=== PATIENT | male | born 1950 | race Caucasian/White ===

== ENCOUNTER 2023-09-02 22:16 | Inpatient (IN) | payer MEDICARE, OTHER, SELFPAY ==
[2023-09-02] VITALS (8 sets, daily range): BP systolic 116–141; BP diastolic 64–76; BMI 33.8; BMI 33.3
[2023-09-02 19:02] LABS: % Basophils 0.7 % (0-2); % Eosinophils 4.4 % (0-6); % Immature Granulocytes 0.3 % (0-0.5); % Lymphocytes 19.7 % (20.5-51.1); % Monocytes 6.7 % (1.7-9.3); % Neutrophils 68.2 % (42.2-75.2); Absolute Eosinophils 0.3 10^3/uL (0-0.7); Absolute Lymphocytes 1.2 10^3/uL (1.2-3.4); Absolute Monocytes 0.4 10^3/uL (0.1-0.6); Absolute Neutrophils 4.1 10^3/uL (1.4-6.5); Hematocrit 23.2 % (39.0-52.0); Hemoglobin 7.5 g/dL (13.0-18.0); Mean Corp Hgb Conc. 32.3 g/dL (33.0-37.0); Mean Corpuscular Volume 80.3 fL (80.0-94.0); Mean Platelet Volume 10.5 fL (7.4-10.4); Nucleated Red Blood Cells % 0 % (-); Platelet Count 216 10^3/uL (130-400); Red Blood Cell Count 2.89 10^6/uL (4.70-6.10); White Blood Cell Count 5.9 10^3/uL (4.8-10.8)
[2023-09-02 19:21] LABS: ALT (SGPT) 11 U/L (0-50); AST (SGOT) 16 U/L (17-59); Alkaline Phosphatase 86 U/L (38-126); Blood Urea Nitrogen 16 mg/dl (9-20); Calcium 8.5 mg/dl (8.4-10.2); Carbon Dioxide 22 mmol/L (22-30); Chloride 107 mmol/L (98-107); Estimated Creatinine Clearance 99 ml/min; Glucose 146 mg/dl (70-99); Potassium 3.7 mmol/L (3.5-5.1); Sodium 137 mmol/L (135-145); Total Bilirubin 0.5 mg/dl (0.2-1.3); Total Protein 5.4 g/dl (6.3-8.2); eGFR > 60.00
--- NOTE | 2023-09-02 21:15 | ED.GENMED ---
History of Present Illness
General
Chief Complaint: Skin Surface Trauma
Source: patient, family and ambulance crew
Exam Limitations: none
Time Seen by Provider: 09/02/23 18:58
Nursing documentation reviewed up to this point in time: agreed with
Travel History
Have you had any contact with someone who has COVID-19?: No
Do you have any symptoms of coronavirus? Fever > 100 degrees, chills, cough, shortness of breath, sore throat, loss of taste or smell, muscle aches, or headache?: No
History of Present Illness
History of Present Illness:
Patient is a 72-year-old male with a history of A-fib on Eliquis, CHF on Lasix, hypertension, diabetes, presents after accidentally lacerating his left anterior lower extremity on a piece of sheet metal in his garage. Patient says he did not
realize that he had as deep of the wound as he did and that it was bleeding as much as he was. There was blood apparently all over the floor garage. He came into the house about a half an hour later and sat down and had a near send nearly blacked
out. His thinks maybe he briefly lost consciousness all the way but she was not sure. She said his eyes rolled in the back of his head and he was not really responding.
He came to per paramedics. The bleeding has since resolved. His last tetanus is up-to-date. He feels a little sleepy but otherwise normal.
Past History
Past History
ED Past Medical History: Arrthythmia, HTN and NIDDM
ED Past Surgical History: Orthopedic
Social History
Tobacco: Non-smoker
Alcohol: None
Review of Systems
Review of Systems
Allergies reviewed?: Yes
All Other Systems: Not applicable
Phy Exam
Physical Exam
Physical Exam:
GENERAL: Alert , in no apparent distress
HEAD: NCAT
NECK: no midline tenderness, active ROM intact, no paraspinal muscle tenderness;
EYE: pupils equal and reactive, EOMs intact. pale conjunctiva
ENT: o/p clr, mmm. no hemotympanum
CARDIAC: afib rate controlled, mild edema b/l LE;
LUNGS: Clear breath sounds bilaterally, no acute respiratory distress, no wheezes/rales/rhonchi
ABDOMEN: Soft, without focal tenderness, no r/g, no cvat
HEME POS stool
NEUROLOGICAL: Alert and oriented, no focal neuro deficits, CN intact, 5/5 strength, sensation intact
SKIN: Warm and dry,
pt has a 3 cm linear laceration left anterior lower leg no active bleeding
MUSCULOSKELETAL: No edema, well perfused.
nontender, full rom
PSYCH: Normal and appropriate interaction.
Course
Orders/Labs/Results
Orders:
Orders
09/02/23 Lunch
Cholesterol Lowering
At Your Request: Full Participation
Cholesterol Lowering: Sodium, 2 Gram
09/02/23 18:55
Complete Blood Count/With Diff Urgent
Comprehensive Metabolic Panel Urgent
Ferritin Urgent
Comment: ADD ON
Iron Urgent
Total Iron Binding Urgent
09/02/23 20:02
Electrocardiogram (*1) Urgent
Reason for Study: Vertigo / Dizzy
09/02/23 20:03
EKG- Treatment ONCE
09/02/23 21:12
Blood Bank Products [* Blood Bank Products] Urgent
Blood Bank Products: *Packed RBC Leuko(PRBC's)
Quantity: 1
Transfuse Today: Yes
Reason: Anemia
Type And Crossmatch Urgent
09/02/23 21:13
Add On- LAB Urgent
Tests Added?: iron, tibc, ferritin
09/02/23 21:23
Pantoprazole [Protonix IV] 40 mg IV NOW STA
09/02/23 21:52
Admit/Transfer Patient As Directed
Co-Sign Provider:
Level of Care: Inpatient admission
Assign to:: Telemetry
Physician / Group: Rupa Elizabeth - hospitalists
Diagnosis: Acute blood loss anemia, heme+ stools, LE laceration
Reason for Telemetry: Arrhythmia
Date to Stop Telemetry: 09/05/23
Time to Stop Telemetry: 11:00
Reason for Hospitalization: Acute blood loss anemia, heme+ stools, LE laceration
Expected length of stay greater than two midnights?: Yes
ELOS- Estimated Length of Stay in days: 2
I certify the patient meets the requirements for IP care: Yes
09/02/23 21:53
Code Status As Directed
Resuscitation Status: Full Code
09/02/23 22:38
Acetaminophen [Tylenol] 650 mg PO Q4HPRN PRN
Atorvastatin [Lipitor] 40 mg PO HS
Bisacodyl [Dulcolax] 10 mg RECTAL [id number] PRN
Dextrose 50%-Water [Dextrose 50% Syringe] 12.5 grams IV [id number] PRN
Docusate W/Senna [Senokot-S] 1 tablet PO BIDPRN PRN
Glucagon [GlucaGen] 1 mg IM PRN PRN
Metformin Extended Release [Glucophage Xr Extended Release] 1,000 mg PO BID AT 0800,1700
Ondansetron Injectable [Zofran] 4 mg IV Q6HPRN PRN
Polyethylene Glycol Powder [Miralax] 17 grams PO DAILYPRN PRN
Tamsulosin [Flomax] 0.8 mg PO HS
09/02/23 22:38
Echo 2D MMode Color/Doppler Routine
Reason for Study: syncopal event
WOUND/OSTOMY CONSULT Routine
Reason for Consult: LLE Laceration, wound care
Activity As Directed
Activity Level: As Tolerated
Bedside Glucose Monitoring As Directed
Frequency: AC&HS
Additional Instructions:: Change to q6h if pt on TPN, tube feeding or not eating
Intake/ Output As Directed
Frequency: q12h
Orthostatic Vital Signs As Directed
Orthostatic VS Frequency: Daily
Pneumatic Compression Sleeves As Directed
Type: Knee high
Vital Signs As Directed
Frequency: Per unit guidelines
Weight As Directed
Frequency: Daily
DX Deep Vein Thrombosis Video Routine
09/02/23 22:45
Nebivolol HCl [Bystolic] 10 mg PO HS
09/03/23 06:00
Basic Metabolic Panel IN AM
Complete Blood Count/No Diff IN AM
Folate IN AM
Glycohemoglobin (HgbA1c) IN AM
Vitamin B12 IN AM
OT Consult [Ot Eval And Treat] IN AM
Physical Therapy Consult [Pt Eval And Treat] IN AM
Activity Level: As Tolerated
09/03/23 07:30
Insulin Aspart Corrective Low [Novolog Flexpen-Low Resistance] See Protocol SC AC
09/03/23 08:00
Pantoprazole [Protonix IV] 40 mg IV DAILY
09/03/23 18:00
Losartan [Cozaar] 100 mg PO QPM
09/05/23 11:00
DC Protocol for Telemetry ONCE
Abnormal Lab Results
09/02/23
18:55
RBC 2.89 L 10^6/uL
(4.70-6.10)
Hgb 7.5 L g/dL
(13.0-18.0)
Hct 23.2 L %
(39.0-52.0)
MCH 26.0 L pg
(27.0-31.0)
MCHC 32.3 L g/dL
(33.0-37.0)
RDW 15.0 H %
(11.5-14.5)
MPV 10.5 H fL
(7.4-10.4)
Lymphocytes % 19.7 L %
(20.5-51.1)
Glucose 146 H mg/dl
(70-99)
Iron 29 L ug/dl
(49-181)
% Saturation 11 L %
(20-50)
Ferritin 17.6 L ng/ml
(17.9-464.0)
AST 16 L U/L
(17-59)
Total Protein 5.4 L g/dl
(6.3-8.2)
Albumin 3.0 L g/dl
(3.5-5.0)
09/02/23 18:55
09/02/23 18:55
Vital Signs
Initial and Last Documented VS:
Initial Vital Signs
Temp Pulse Resp BP Pulse Ox
98.3 F 66 22 119/65 93
09/02/23 18:41 09/02/23 18:41 09/02/23 18:41 09/02/23 18:41 09/02/23 18:41
Last Documented Vital Signs
Temp Pulse Resp BP Pulse Ox
99.0 F 79 16 116/75 100
09/02/23 23:00 09/02/23 23:55 09/02/23 23:00 09/02/23 23:55 09/02/23 23:00
MDM/Problems Addressed
Differential Diagnosis Includes:
symptomatic anemia, laceration, gi bleed
MDM/Problems Addressed:
72 y/o M with laceration lower leg today ccausing what looked to be to family like significant blood loss, followed by witnessed syncope
no h/o anemima
had labs here years agow ith hg of 11
pt is normotensive, pale, seems weak
bleeidng from laceration conrolled
repaired with sutures and dressed
hg is 7.5
heme pos stool
pt seems too weak to d/c
will admit
transufion consent signed.
*Critical Care Note
Total Time (30-74mins, 75-104mins- exclusive of procedures): Not Applicable
ED Attending Note
-
Portions of this chart may have been created with voice recognition software.� Occasional wrong word or��sound alike� substitutions may have occurred due to the inherent limitations of voice recognition software.
Discharge Plan
Departure
Patient Disposition: Admit
Date of Disposition: 09/02/23
Time of Disposition: 21:24
Admit to: Telemetry
Presentation/result/management discussed w/ accepting MD/DO: Hospitalist
Condition: Fair
Covid-19: Not Applicable
Discharge Problem:
Syncope, Symptomatic anemia, Laceration of leg
Interventions
Interventions:
*Risk Screen - Suicide Last Done: 09/02/23 23:10
*General Assessment Last Done: 09/02/23 18:58
*Neglect/Abuse Screening Last Done: 09/02/23 18:58
ED- Fall Risk Assessment Last Done: 09/02/23 18:58
*ED COVID-19 Vaccine History Last Done: 09/02/23 23:10
*Nursing Disposition Last Done: 09/02/23 22:40
ED-Skin Assessment Last Done: 09/02/23 18:57
Discharge Date and Time
Discharge Date/Time: 09/02/23 22:40
--- NOTE | 2023-09-02 21:34 | HPS.HSE ---
Family Physician
-
Family Physician: Ayesha Henning MD
Chief Complaint
-
skin trauma
History of Present Illness
72 y/o M hx of Afib on Eliquis, CHF on Lasix, HTN, DM presents to ER with accidental laceration of L anterior LE on a piece of sheet metal in garage. Patient/family reports the bleeding was significant and were not aware of the degree of depth of
the wound. Later in the house, he sat down and nearly passed out; he was briefly not responding. Patient denies any chest pain, sob, palpitations prior to episode. He was noted to have Hb of 7.5 on admission, previously Hb 13. In ER, weakly heme
positive. Patient denies any dark stools, blood on toilet paper. Reports prior C-scope without significant abnormalities. He is on Eliquis.
Medical History
Past Medical History
Past Medical History: Reports Other (Afib on Eliquis, CHF on Lasix, HTN, DM)
Past Surgical History: Reports Orthopedic
Social History
Tobacco: Non-smoker
Alcohol: None
Personal:
Living: With Family
Family History
Family History: Not pertinent
Allergies / Home Medications
Allergies reflects when Allergies were last updated in [facility].
Home Medications with original date entered in [facility]
Allergy/Medication List:
Allergies
Allergy/AdvReac Type Severity Reaction Status Date / Time
No Known Allergies Allergy Verified 05/07/23 18:36
Home Medications
apixaban 5 mg tablet (Eliquis) 5 mg PO BID #180 tabs 09/26/21
folic acid 1 mg tablet 1 mg PO DAILY #90 tabs 09/26/21
tamsulosin 0.4 mg capsule 0.8 mg (2 x 0.4 mg) PO HS #180 caps 09/26/21
atorvastatin 40 mg tablet 40 mg PO HS 09/02/23
furosemide 20 mg tablet 20 mg PO DAILY PRN swelling 09/02/23
metformin 500 mg tablet,extended release 24 hr 1,000 mg PO BID 09/02/23
multivitamin 1 tab PO DAILY 09/02/23
nebivolol 10 mg tablet 10 mg PO HS 09/02/23
telmisartan 80 mg tablet 80 mg PO QPM 09/02/23
Review of Systems
-
A 12 point ROS was completed and negative except as noted: Yes
Physical Exam
Vital Signs
Vital Signs
Temp Pulse Resp BP Pulse Ox
98.3 F 73 12 130/68 95
09/02/23 18:41 09/02/23 19:45 09/02/23 19:45 09/02/23 19:00 09/02/23 19:45
Physical Exam
General: Well Developed and Well Nourished
HEENT: NormoCephalic and Anicteric
Respiratory: No Wheezes or Rales
Cardiac: S1/S2 and Regular Rhythm
Musculoskeletal: Edema, Left Lower Extremity and Edema, Right Lower Extremity
Neuro: AO x 3
Psych: Calm
Laboratory Results
-
09/02/23 18:55
09/02/23 18:55
Laboratory Results
Total Bilirubin 0.5 mg/dl (0.2-1.3) 09/02/23 18:55
AST 16 U/L (17-59) L 09/02/23 18:55
ALT 11 U/L (0-50) 09/02/23 18:55
Alkaline Phosphatase 86 U/L (38-126) 09/02/23 18:55
Data Reviewed
-
Lab Data: Labs Reviewed by me
Impression/Plan
-
Assessment:
Acute blood loss anemia from L LE laceration (traumatic)
Heme+ stools on exam per ER
Syncopal event post-bleeding
A. fib on Eliquis
chronic HFpEF (on Lasix prn)
Essential HTN
Type 2 DM
HLD
Plan:
Monitor on tele; syncope workup. check orthostatics. check Echo.
Hold Eliquis
1 unit PRBC; repeat AM Hb.
check anemia workup
if iron deficiency, consider GI input. PPI daily for now.
consult wound care. Per ER sign out; plan is for 'sutures out in 10 days; change dressing once or twice a day and clean and redress with bacitracin'
DVT: SCDs
Code: Full
[2023-09-02] MEDS: PROTONIX IV 40 MG IV (21:55)
[2023-09-02 21:58] LABS: Iron 29 ug/dl (49-181)
[2023-09-02 22:07] LABS: Percent Saturation 11 % (20-50); Total Iron Binding Capacity 263 ug/dl (261-462)
--- NOTE | 2023-09-02 23:10 | TRANSFER ---
Pt admitted from ED to room 434-2. Pt pulled over from stretcher to bed. AAOx3. VSS. Pt was oriented to the room, call lamb placed within reach.
[2023-09-02 23:42] LABS: Ferritin 17.6 ng/ml (17.9-464.0)
[2023-09-02] MEDS: FLOMAX 0.800000000000000044 MG PO (23:54)
[2023-09-02] MEDS: BYSTOLIC 10 MG PO (23:55)
[2023-09-02] MEDS: GLUCOPHAGE XR EXTENDED RELEASE 1000 MG PO (23:56)
[2023-09-03] VITALS (10 sets, daily range): BP systolic 108–148; BP diastolic 55–73; PULSE 63; O2SAT 98
[2023-09-03 00:02] LABS: Glucose - Point of Care 230 mg/dl (70-99)
[2023-09-03] MEDS: LIPITOR 40 MG PO ×2 (00:06→21:29)
[2023-09-03 07:23] LABS: Glucose - Point of Care 138 mg/dl (70-99)
[2023-09-03] MEDS: GLUCOPHAGE XR EXTENDED RELEASE 1000 MG PO ×2 (07:50→17:51)
[2023-09-03] MEDS: PROTONIX IV 40 MG IV (07:51)
[2023-09-03] MEDS: NSS (PRESERVATIVE FREE) 10 ML IV (07:51)
--- NOTE | 2023-09-03 10:00 | WOUNDNOTE ---
WENDY RN NOTE: Patient admitted with Syncope and L leg laceration from sheet metal. See computer for complete PMH. Reviewed ER note and Dr. Colon's note. Removed dressing carefully due to large amt of dried blood on dressing. Approximately 2'
width laterally, closed laceration with black stitches. Adaptic and silicone foam applied, no further bleeding noted. Leg with 2+ edema, patient said he has chronic edema in both legs. and daughter at bedside and confirmed edema in legs, does
not use any type of compression. + palpable pedal pulses, able to lift legs on own, heels intact. Jacques wrap applied knee high, tolerated without pain. Will order bacitracin to start tomorrow per Dr. Colon's note with local wound care. Will
confirm and update wound care orders. Nurse Helen aware of the above. Will follow as needed.
--- NOTE | 2023-09-03 10:05 | WOUNDNOTE ---
WENDY RN NOTE: Patient admitted with Syncope and L leg laceration from sheet metal. See computer for complete PMH. Reviewed Dr. Colon's note, bacitracin and dry dressing recommended by ER . Removed dressing carefully due to large amt of dried
blood on dressing. Approximately 2 cm. width laterally, closed laceration with black stitches. Adaptic and silicone foam applied, no further bleeding noted. Leg with 2+ edema, patient said he has chronic edema in both legs. and daughter at
bedside and confirmed edema in legs, does not use any type of compression. + palpable pedal pulses, able to lift legs on own, heels intact. Jacques wrap applied knee high, tolerated without pain. Will order bacitracin to start tomorrow with local wound
care and jacques wrap. Will confirm and update wound care orders. Nurse Helen aware of the above. Will follow as needed.
--- NOTE | 2023-09-03 11:07 | W.PN.HOSP.TC ---
Addendum entered and electronically signed by Ho Colon MD 09/04/23 15:23:
Acute blood loss anemia was enhanced by usage of Eliquis in combination with acute laceration of leg
Original Note:
Today's Communication/Plan
-
Await pending repeat H&H after blood transfusion may need additional unit
Started on iron supplementation
Continue to hold Eliquis for now until discharge plan and evaluation by gastroenterology
Assessment / Plan
Assessment / Plan
72 y/o M hx of Afib on Eliquis, CHF on Lasix, HTN, DM presents to ER with accidental laceration of L anterior LE on a piece of sheet metal in garage. Patient/family reports the bleeding was significant and were not aware of the degree of depth of
the wound. Later in the house, he sat down and nearly passed out; he was briefly not responding. Patient denies any chest pain, sob, palpitations prior to episode. He was noted to have Hb of 7.5 on admission, previously Hb 13. In ER, weakly heme
positive. Patient denies any dark stools, blood on toilet paper. Reports prior C-scope without significant abnormalities. He is on Eliquis.
After admission patient was found to have a stool for occult blood positive and also iron deficiency. Most recent colonoscopy may have been as much as 5 years ago.
Acute blood loss anemia from L LE laceration (traumatic)
Heme+ stools on exam per ER
Syncopal event post-bleeding
A. fib on Eliquis
chronic HFpEF (on Lasix prn)
Essential HTN
Type 2 DM
HLD
Iron deficiency anemia in male
Plan:
Monitor on tele; syncope workup. check orthostatics. check Echo.
Hold Eliquis
1 unit PRBC; repeat AM Hb. Still pending
check anemia workup notes iron deficiency
Will get gastroenterology input given question of possible GI bleed as not the only source of his anemia presentation
consult wound care. Per ER sign out; plan is for 'sutures out in 10 days; change dressing once or twice a day and clean and redress with bacitracin'
DVT: SCDs
Code: Full
Anticipated Discharge: Within 24 hours
Subjective/Interval History
-
Date of Service: September 03, 2023
Feels okay and no further dizziness faintness no chest pain no shortness of breath with ambulating hallway received 1 unit of packed red blood cells overnight.
Objective Data
-
Labs:
Laboratory Results
09/03/23
06:00
WBC Pending
Hgb Pending
Hct Pending
Plt Count Pending
Sodium Pending
Potassium Pending
Chloride Pending
Carbon Dioxide Pending
BUN Pending
Creatinine Pending
Glucose Pending
Calcium Pending
Vital Signs:
Vital Signs
Temp Pulse Resp BP Pulse Ox
98.3 F 68 16 127/69 96
09/03/23 07:58 09/03/23 07:58 09/03/23 07:58 09/03/23 07:58 09/03/23 07:58
I&O
09/02/23 09/03/23 09/04/23
06:59 06:59 06:59
Intake Total 250 / 250
Balance 250 / 250
Review of Systems
-
History Source: Patient and Family (Family at bedside and updated)
Constitutional: Reports No Symptoms
Respiratory: Reports No Symptoms
Cardiac: Reports No Symptoms
Abdomen/GI: Reports No Symptoms
Skin: Reports Sores
Physical Exam
-
General: Well Developed
HEENT: Normocephalic
Cardiac: Irregular Rhythm
GI: Soft and Nontender
Skin: Lesions (Left pretibial laceration that is now sutured with 3 sutures/Jacques wrap)
Neuro: Awake
Psych: Calm
Data Reviewed
-
Total Time Spent with Patient (in minutes): 56
Labs: Labs Reviewed by me (Repeat hemoglobin still pending on entrance 7.5/iron deficiency noted/stool for occult blood positive)
[2023-09-03 12:07] LABS: Hemoglobin 7.9 g/dL (13.0-18.0)
[2023-09-03] MEDS: FERRLECIT 110 MG IV (12:13)
[2023-09-03 12:14] LABS: Glucose - Point of Care 125 mg/dl (70-99)
--- NOTE | 2023-09-03 13:01 | CON.GI ---
Addendum entered and electronically signed by BENNIE Ybarra 09/03/23 15:06:
hbg from PCP office 02/2023 14 with MCV 91
Addendum entered and electronically signed by Stephanie Maldonado DO 09/03/23 14:21:
Briefly, Skip Fung is a 72-year-old male with past medical history of A-fib on Eliquis, CHF, hypertension, diabetes admitted following an accidental laceration of his left anterior lower extremity, which he injured with a sheet metal and a
garage. He was noted to be severely anemic, labs consistent with iron deficiency. Hemoglobin 7.5, previously 13, stool is brown, heme positive. Last colonoscopy was 5 years ago which she reports was normal. He denies any melena or hematochezia
at home. He does note constipation, moves his bowels approximately once weekly which has been since 2017. He notes a specific change in bowel habits after going to [employer] in 2017, no change in bowel habits since that time. Both patient and
his at bedside states that there was a significant amount of blood loss following the injury, it is difficult to ascertain just how much but it is difficult to believe that such a profound blood loss could have come from this injury to account
for such a low hemoglobin on presentation. He has no signs of active bleeding at this time. If hemoglobin remains stable over the next 24 hours I would recommend outpatient EGD and colonoscopy for further evaluation of iron deficiency anemia. If
there are signs of active GI bleeding or he is transfusion dependent with ongoing drops, would recommend inpatient evaluation. Both patient and his are agreeable to this plan. Will continue to follow.
Original Note:
Consultation
-
Date/Time Consultation Requested: 09/03/23 1130
Date/Time Consultation Performed: 09/03/23 1300
Requesting Provider: Ho Colon MD
Performing Provider: BENNIE Ryan, Edith Coello DO
Reason for Consultation: anemia
Medical History
Chief Complaint / HPI
Chief Complaint: bleeding from leg
History of Present Illness:
Pt is a 72yo with hx afib with prior CVA 2 years ago on chronic Eliquis, CHF with no recent admission and PRN Lasix use, HTN, NIDDM, prior ETOH use with presentation of bleeding after cut noted on metal while working at home. Per patient and family
he reports a large volume blood noted after injury. He walked to kitchen and sat of chair with concern for weakness with passing out and 911 was called. On admission he is noted with hbg 7.5 with MCV 80.3 and significant iron deficiency with iron
29, TIBC 263, 5 sat 11 and ferritin 17.6. In ER he was noted also with heme + stools. Last colonoscopy [address] Mohamud with 3 mm cecal polyp- TA, IH, and prominent IC valve -- with benign inflammation on bx. No prior EGD.
Pt admits with some wt loss of 20 lbs with some eating less and early satiety with per family feeling full quickly. denies dysphagia, GERD, nausea, vomiting, abdominal pain, diarrhea, constipation, blood or black in stools. Prior hbg 09/2021
14.8 with more recent labs at PCP office. No NSAID use.
Past Medical History
Past Medical History: Arrhythmias (afib on eliquis ), CHF (possible in past with PRN Lasix use), CVA, HTN and NIDDM
Social History
Tobacco: Non-Smoker
Alcohol: Chronic Alcoholic (increase amount in past with several beers per day now 1 drink per week)
Drug: None
Personal:
Living: With Family
Employment: Retired
Family History
Family History: Other
Allergies / Home Medications
Allergy/AdvReac Type Severity Reaction Status Date / Time
No Known Allergies Allergy Verified 05/07/23 18:36
�Medication �Instructions �Recorded
apixaban 5 mg tablet (Eliquis) 5 mg PO BID #180 tabs 09/26/21
folic acid 1 mg tablet 1 mg PO DAILY #90 tabs 09/26/21
tamsulosin 0.4 mg capsule 0.8 mg (2 x 0.4 mg) PO HS #180 caps 09/26/21
atorvastatin 40 mg tablet 40 mg PO HS 09/02/23
furosemide 20 mg tablet 20 mg PO DAILY PRN swelling 09/02/23
metformin 500 mg tablet,extended 1,000 mg PO BID 09/02/23
release 24 hr
multivitamin 1 tab PO DAILY 09/02/23
nebivolol 10 mg tablet 10 mg PO HS 09/02/23
telmisartan 80 mg tablet 80 mg PO QPM 09/02/23
Review of Systems
-
History Source: Patient and Family
Constitutional: Reports Weight Loss and Fatigue
EENT: Reports No Symptoms
Respiratory: Reports No Symptoms
Cardiac: Reports No Symptoms
Abdomen/GI: Reports No Symptoms
: Reports No Symptoms
Musculoskeletal: Reports Other (cut prior to admission with bleeding)
Neurological: Reports Dizzy (on admission) and Weakness
Endocrine: Reports No Symptoms
Hematologic/Lymphatic: Reports Bleeding
Vital Signs
Temp Pulse Resp BP Pulse Ox
98 F 78 16 124/64 97
09/03/23 12:51 09/03/23 12:51 09/03/23 12:51 09/03/23 12:51 09/03/23 12:51
Physical Exam
Exam
General: Well Developed and Well Nourished
HEENT: Normocephalic and Anicteric
Respiratory: Clear
Cardiac: Regular Rhythm
GI: Soft, Non Tender, Non Distended and Normal Bowel Sounds
Genito-urinary: No Costovertebral Tender
Musculoskeletal: No Clubbing and No Cyanosis
Skin: Warm and Dry
Neuro: Awake, Alert and AO x 3
Psych: Calm
Results
WBC 5.9 10^3/uL (4.8-10.8) 09/02/23 18:55
Hgb 7.9 g/dL (13.0-18.0) L 09/03/23 11:29
Hct 23.2 % (39.0-52.0) L 09/02/23 18:55
MCV 80.3 fL (80.0-94.0) 09/02/23 18:55
Plt Count 216 10^3/uL (130-400) 09/02/23 18:55
Absolute Neuts (auto) 4.1 10^3/uL (1.4-6.5) 09/02/23 18:55
Sodium 137 mmol/L (135-145) 09/02/23 18:55
Potassium 3.7 mmol/L (3.5-5.1) 09/02/23 18:55
Chloride 107 mmol/L (98-107) 09/02/23 18:55
Carbon Dioxide 22 mmol/L (22-30) 09/02/23 18:55
BUN 16 mg/dl (9-20) 09/02/23 18:55
Creatinine 0.9 mg/dL (0.7-1.3) 09/02/23 18:55
Calcium 8.5 mg/dl (8.4-10.2) 09/02/23 18:55
Total Bilirubin 0.5 mg/dl (0.2-1.3) 09/02/23 18:55
AST 16 U/L (17-59) L 09/02/23 18:55
ALT 11 U/L (0-50) 09/02/23 18:55
Alkaline Phosphatase 86 U/L (38-126) 09/02/23 18:55
Prior GI Procedures:
EGD: none
Colonoscopy: [address] Mohamud with 3 mm cecal polyp- TA, IH, and prominent IC valve -- with benign inflammation on bx. No prior EGD.
Assessment / Plan
-
Pt is a 72yo with hx afib with prior CVA 2 years ago on chronic Eliquis, CHF with no recent admission and PRN Lasix use, HTN, NIDDM, prior ETOH use with presentation of bleeding after cut noted on metal while working at home. Per patient and family
he reports a large volume blood noted after injury. He walked to kitchen and sat of chair with concern for weakness with passing out and 911 was called. On admission he is noted with hbg 7.5 with MCV 80.3 and significant iron deficiency with iron
29, TIBC 263, 5 sat 11 and ferritin 17.6. In ER he was noted also with heme + stools. Last colonoscopy [address] Mohamud with 3 mm cecal polyp- TA, IH, and prominent IC valve -- with benign inflammation on bx. No prior EGD.Pt admits with some
wt loss of 20 lbs with some eating less and early satiety with per family feeling full quickly. No NSAID use.
-iron deficiency anemia
-s/p cut with metal in garage
-heme + stool in ER
-hx colon polyps last colon 2010
-wt loss early satiety
-afib on Eliquis
other medical problems:
-CVA
-HTN
-NIDDM
-CHF
PLAN:
Etiology of anemia related to acute blood loss with cut on Metal prior to admission vs some underlying chronic anemia with iron deficiency with some reported wt loss and early satiety vs other
t/c eventual EGD/colon - IP vs OP will review timing with Dr. Coello consider sooner if significant further drop in hbg
will try to obtain more recent hbg from PCP office (anitha Cotton [phone])
trend hbg
IV iron
s/p 1 units transfused
Eliquis hold last dose 09/01 am-
cont wound care with recent injury
remains on cholesterol lowering diet
-
-
Thank you for consultation and allowing me to participate in the patient's care. Please call the director of corporate communications GI physician during the after hours with any questions or concerns.
[2023-09-03 13:32] LABS: Hematocrit 24.2 % (39.0-52.0); Hemoglobin 7.7 g/dL (13.0-18.0); Mean Corp Hgb Conc. 31.8 g/dL (33.0-37.0); Mean Corpuscular Hgb 26.4 pg (27.0-31.0); Mean Corpuscular Volume 82.9 fL (80.0-94.0); Mean Platelet Volume 11.4 fL (7.4-10.4); Platelet Count 175 10^3/uL (130-400); Red Blood Cell Count 2.92 10^6/uL (4.70-6.10); White Blood Cell Count 5.9 10^3/uL (4.8-10.8)
[2023-09-03 13:59] LABS: Blood Urea Nitrogen 14 mg/dl (9-20); Calcium 8.7 mg/dl (8.4-10.2); Carbon Dioxide 23 mmol/L (22-30); Chloride 107 mmol/L (98-107); Estimated Creatinine Clearance 98 ml/min; Glucose 112 mg/dl (70-99); Sodium 137 mmol/L (135-145); eGFR > 60.00
[2023-09-03 14:28] LABS: Glycohemoglobin (HgbA1c) 5.3 % (4.0-5.6)
[2023-09-03 15:05] LABS: Folate > 20.0 ng/ml (2.76-20); Vitamin B12 277 pg/ml (239-931)
--- NOTE | 2023-09-03 15:28 | CM ---
Case discussed with SANDI Cervantes. Visited with Skip and his who was at bedside to complete CM Assessment.
Pt and report pt being (I) amb and ADLs. does assist with lower body dressing. Home is a 2 story with 14 stairs from ground to 2nd floor.
Pt would like to know if/when the endo/colo are going to be completed during this hospital stay. would like it to be done now since he is off Eliquis currently. He is also asking for his diet to be changed.
Dr. Granda consult is pending; await consult to determine timing of the endo/colo; IP vs. OP to be determined based on Hgb stability which has dropped since transfusion.
CM will continue to follow.
[2023-09-03 17:14] LABS: Glucose - Point of Care 134 mg/dl (70-99)
[2023-09-03] MEDS: COZAAR 100 MG PO (17:51)
[2023-09-03 21:10] LABS: Glucose - Point of Care 130 mg/dl (70-99)
[2023-09-03] MEDS: FLOMAX 0.800000000000000044 MG PO (21:29)
[2023-09-03] MEDS: BYSTOLIC 10 MG PO (21:29)
[2023-09-04 03:00] VITALS: BP 138/66
[2023-09-04 05:29] VITALS: BMI 33.2
[2023-09-04 05:52] LABS: Hemoglobin 7.4 g/dL (13.0-18.0); Mean Corp Hgb Conc. 32.2 g/dL (33.0-37.0); Mean Corpuscular Hgb 26.6 pg (27.0-31.0); Mean Corpuscular Volume 82.7 fL (80.0-94.0); Mean Platelet Volume 11.4 fL (7.4-10.4); Platelet Count 180 10^3/uL (130-400); Red Blood Cell Count 2.78 10^6/uL (4.70-6.10); Red Cell Dist. Width 15.3 % (11.5-14.5)
[2023-09-04 07:30] VITALS: BP 133/63
[2023-09-04 08:02] LABS: Glucose - Point of Care 107 mg/dl (70-99)
[2023-09-04] MEDS: GLUCOPHAGE XR EXTENDED RELEASE 1000 MG PO (08:42)
[2023-09-04] MEDS: POLYSPORIN/DOUBLE ANTIBIOTIC 1 APPLIC TOPICAL (08:42)
[2023-09-04] MEDS: NSS (PRESERVATIVE FREE) 10 ML IV (08:42)
[2023-09-04] MEDS: PROTONIX IV 40 MG IV (08:44)
[2023-09-04 11:00] VITALS: BP 151/84
--- NOTE | 2023-09-04 12:03 | W.DS.TRANS ---
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
-
Discharge Instructions:
Discharge Diagnosis/Procedures Acute blood loss anemia
Occult blood positive stool
Laceration of left pretibial now post suture
Atrial fibrillation Eliquis resumed at discharge
Diet As tolerated
Activity As tolerated
Driving Restrictions As prior to admission
Blood Work CBC in 1 week
Instructions:
Stand-Alone Forms:
Changes to Home Medications: No
Discharge Medications:
DC Medications w/original date entered in [employer]
apixaban 5 mg tablet (Eliquis) 5 mg PO BID #180 tabs 09/26/21
folic acid 1 mg tablet 1 mg PO DAILY #90 tabs 09/26/21
tamsulosin 0.4 mg capsule 0.8 mg (2 x 0.4 mg) PO HS #180 caps 09/26/21
atorvastatin 40 mg tablet 40 mg PO HS 09/02/23
furosemide 20 mg tablet 20 mg PO DAILY PRN swelling 09/02/23
metformin 500 mg tablet,extended release 24 hr 1,000 mg PO BID 09/02/23
multivitamin 1 tab PO DAILY 09/02/23
nebivolol 10 mg tablet 10 mg PO HS 09/02/23
telmisartan 80 mg tablet 80 mg PO QPM 09/02/23
pantoprazole 40 mg tablet,delayed release (Protonix) 40 mg PO DAILY Gastrointestinal issue #30 tabs 09/04/23
Home Medication Changes
pantoprazole 40 mg tablet,delayed release (Protonix) 40 mg PO DAILY Gastrointestinal issue #30 tabs 09/04/23
Pending Results: No
Total time spent discharging patient (in min): 35
--- NOTE | 2023-09-04 12:07 | W.DCSUMMARY ---
Discharge Summary
Discharge Data
Date of Admission: 09/02/23
Date of Discharge: 09/04/23
-
Pending Results: No
Hospital Course
72-year-old male with a history of permanent atrial fibrillation on Eliquis with underlying CHF hypertension and diabetes was admitted to the hospital setting after he lacerated his left leg on a piece of sheet metal while working in his garage he
initially disregarded the injury but developed significant amount of pooling of blood and large volume in the garage floor and was noted by family members to have had significant amount of blood loss and then developed lightheadedness dizziness and
near syncope prompting evaluation in the ED at which time his presentation hemoglobin turned out to be as low as 7.5 from most recent being measured at 13 a stool management at that time noted a brown stool however did nocturnist physician to be heme positive.
He had suturing of the left pretibial laceration in the ED with 3 sutures that will need to be removed in approximately 10 days he was admitted and given a unit of packed red blood cells after informed consent his last colonoscopy was at least 5
years ago if not longer he has denied any blood passage that would suggest either melena or hematochezia at home. Based on the assumption that the significant amount of decrement in his hemoglobin from 13-7 and half was not all related to acute
blood loss from his laceration we consulted the GI service in relation to his occult blood positive stools and also noteworthy is apparent iron deficiency anemia on assessment of iron on presentation. GI impression was that should his H&H and
hemodynamics remained stable they would like to pursue an outpatient course of EGD and colonoscopy and will make arrangements to follow-up with Dr. Stephanie Maldonado on 25 September at 11:30 AM with her [employer]IC to hold the spot thereafter in 2 weeks for an EGD
and colon. Patient will have a follow-up CBC in approximately 1 week I have also reached out to his PCP in this regard. Eliquis at the time of presentation was held and will be restarted at time of discharge. Of note the patient was also noted on
telemetry during hospital stay to have periods of bradycardia although asymptomatic in the 40s he is not on any chronotropic's a 2D echocardiogram was performed noting a 60% EF with diastolic function indeterminant and normal right ventricular size
and function and moderately dilated right atrium and moderate TR with IVC was mildly dilated and a PASP of 58 mmHg improvement in LV function from prior assessment noted
Discharge Plan
-
Patient Disposition: Home (Routine Discharge)
Discharge Diagnosis/Procedures: Acute blood loss anemia
Occult blood positive stool
Laceration of left pretibial now post suture
Atrial fibrillation Eliquis resumed at discharge
Diet: As tolerated
Activity: As tolerated
Driving Restrictions: As prior to admission
Blood Work: CBC in 1 week
Activity Restrictions/Additional Instructions:
Wound Care Instructions
L leg: Can shower and wash with soap and water, bacitracin to sutures, cover with dry dressing daily and prn drainage.
Jacques wrap knee high daily can remove at bedtime
leg elevation when sitting.
Follow up with primary MD for removal of stitches.
Referrals:
Edith Souza CRNP [Specified Professional Personl] - 09/26/23 11:30 am (please call if you cannot make this appt. )
Tenthoff,Ayesha Esquivel MD [Family Provider] - in less than 1 week
(Will need removal of sutures in the left flank in 8 days
Recheck CBC and appointment to assess and follow-up blood loss anemia)
Prescriptions:
New
pantoprazole [Protonix] 40 mg tablet,delayed release (DR/EC)
40 mg PO DAILY Qty: 30 0RF
Continued
multivitamin Tablet
1 tab PO DAILY
telmisartan 80 mg tablet
80 mg PO QPM
furosemide 20 mg Tablet
20 mg PO DAILY PRN (Reason: swelling)
nebivolol 10 mg tablet
10 mg PO HS
atorvastatin 40 MG tablet
40 mg PO HS
metformin 500 MG tablet extended release 24 hr
1,000 mg PO BID
tamsulosin 0.4 MG capsule
0.8 mg PO HS Qty: 180 0RF
folic acid 1 MG tablet
1 mg PO DAILY Qty: 90 0RF
Eliquis 5 MG tablet
5 mg PO BID Qty: 180 0RF
Discharge Orders:
Discharge Patient (As Directed); Ordered 09/04/23
Ordered By: Ho Colon
Discharge Date and Time
Print Language: BHUTANESE
--- NOTE | 2023-09-04 12:12 | W.PN.GI.CBS2 ---
Today's Communication / Plan
-
Okay for discharge, discussed with patient this morning and on phone. Recommend CBC in 1 week. Discharge on PO iron. Office follow-up arranged with GI upon discharge.
Assessment / Plan
-
Pt is a 72yo with hx afib with prior CVA 2 years ago on chronic Eliquis, CHF with no recent admission and PRN Lasix use, HTN, NIDDM, prior ETOH use with presentation of bleeding after cut noted on metal while working at home. Per patient and family
he reports a large volume blood noted after injury. He walked to kitchen and sat of chair with concern for weakness with passing out and 911 was called. On admission he is noted with hbg 7.5 with MCV 80.3 and significant iron deficiency with iron
29, TIBC 263, 5 sat 11 and ferritin 17.6. In ER he was noted also with heme + stools. Last colonoscopy [address] Mohamud with 3 mm cecal polyp- TA, IH, and prominent IC valve -- with benign inflammation on bx. No prior EGD.Pt admits with some
wt loss of 20 lbs with some eating less and early satiety with per family feeling full quickly. No NSAID use.
-iron deficiency anemia
-s/p cut with metal in garage
-heme + stool in ER
-hx colon polyps last colon 2010
-wt loss early satiety
-afib on Eliquis
other medical problems:
-CVA
-HTN
-NIDDM
-CHF
PLAN:
Etiology of anemia related to acute blood loss with cut on Metal prior to admission vs some underlying chronic anemia with iron deficiency with some reported wt loss and early satiety--no signs of active GI bleeding and hemoglobin has remained stable
IV iron --> please d/c with oral iron
s/p 1 units transfused
Okay to resume eliquis
Okay for discharge today from a GI perspective. Outpatient follow-up with GI on 09/25, plans for EGD/Colonoscopy on 10/05
-check CBC in 1 week
Subjective
Subjective
Date of Service: September 04, 2023
Patient seen in follow-up today. Hemoglobin 7.4 from 7.7 yesterday. He received 1 unit PRBC on 09/02. No signs of GI bleeding. He has remained hemodynamically stable. Patient comfortable with discharge with close outpatient follow-up for office visit
and eventual EGD/Colonoscopy.
Objective
Data Reviewed
Laboratory Data:
Laboratory Results
09/04/23 05:14
09/03/23 13:04
Laboratory Results
Total Bilirubin 0.5 mg/dl (0.2-1.3) 09/02/23 18:55
AST 16 U/L (17-59) L 09/02/23 18:55
ALT 11 U/L (0-50) 09/02/23 18:55
Alkaline Phosphatase 86 U/L (38-126) 09/02/23 18:55
Vital Signs and I&O:
Vital Signs
Temp Pulse Resp BP Pulse Ox
97.7 F 74 18 133/63 96
09/04/23 07:30 09/04/23 07:30 09/04/23 07:30 09/04/23 07:30 09/04/23 07:30
I&O
09/03/23 09/04/23 09/05/23
06:59 06:59 06:59
Intake Total 250 / 250 960 / 960
Output Total 300 / 300
Balance 250 / 250 660 / 660
Physical Exam
Physical Exam
GENERAL: In no acute distress, appears comfortable
HEENT: no scleral icterus, mucous membranes moist, OP clear
RESP: Nonlabored respirations, clear to ausculation, b/l
CV: RRR, S1/S2
ABDOMEN: +BS; soft, non-tender and non-distended; no rebound or guarding
EXT: +left lower extremity with shirley bandage round laceration
SKIN: Dry, warm
NEURO: AAOx3
--- NOTE | 2023-09-04 12:55 | CM ---
Skip was discharged home with his and daughter today. He will follow up outpatient for his endoscopy and colonoscopy. Appointment information included in discharge instructions. IMM provided and reviewed verbally with Skip and family.
No other needs identified.
--- NOTE | 2023-09-04 12:57 | W.DS.TRANS ---
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
-
Discharge Instructions:
Discharge Diagnosis/Procedures Acute blood loss anemia
Occult blood positive stool
Laceration of left pretibial now post suture
Atrial fibrillation Eliquis resumed at discharge
Iron deficiency anemia
Diet As tolerated
Activity As tolerated
Driving Restrictions As prior to admission
Blood Work CBC in 1 week
Instructions:
Stand-Alone Forms:
Changes to Home Medications: No
Discharge Medications:
DC Medications w/original date entered in [employer]
apixaban 5 mg tablet (Eliquis) 5 mg PO BID #180 tabs 09/26/21
folic acid 1 mg tablet 1 mg PO DAILY #90 tabs 09/26/21
tamsulosin 0.4 mg capsule 0.8 mg (2 x 0.4 mg) PO HS #180 caps 09/26/21
atorvastatin 40 mg tablet 40 mg PO HS 09/02/23
furosemide 20 mg tablet 20 mg PO DAILY PRN swelling 09/02/23
metformin 500 mg tablet,extended release 24 hr 1,000 mg PO BID 09/02/23
multivitamin 1 tab PO DAILY 09/02/23
nebivolol 10 mg tablet 10 mg PO HS 09/02/23
telmisartan 80 mg tablet 80 mg PO QPM 09/02/23
ferrous gluconate 324 mg (37.5 mg iron) tablet 324 mg PO DAILY Supplement #30 tabs 09/04/23
pantoprazole 40 mg tablet,delayed release (Protonix) 40 mg PO DAILY Gastrointestinal issue #30 tabs 09/04/23
Home Medication Changes
ferrous gluconate 324 mg (37.5 mg iron) tablet 324 mg PO DAILY Supplement #30 tabs 09/04/23
pantoprazole 40 mg tablet,delayed release (Protonix) 40 mg PO DAILY Gastrointestinal issue #30 tabs 09/04/23
Pending Results: No
Total time spent discharging patient (in min): 36
--- NOTE | 2023-09-04 13:12 | PN.CDI ---
CDI
- -
CDI:
Physician Documentation Request
Admit Date: 09/02/23 22:16
Dear Doctor Isaiah,
Patient admitted with acute blood loss anemia.
09/02 PN, 'Acute blood loss anemia....Hold Eliquis....He was noted to have Hb of 7.5 on admission, previously Hb 13.'
Please clarify the likely relationship between these conditions:
Yes, acute blood loss anemia is associated with/ enhanced by Eliquis.
No, acute blood loss anemia is not associated with/ enhanced by Eliquis but it is due to ___. (Please specify)
Unable to determine
Use of terms such as suspected, likely, concern for, or probable (associated with a specific diagnosis that is being evaluated, monitored, or treated as if it exists) are acceptable and can be coded in the inpatient setting, when documented at the
time of discharge.
Thank you,
Ashley TAMEZ,RN,CCDS
CDI Specialist
Available via [place] text
Please use your independent medical judgment in providing your response.
--- NOTE | 2023-09-04 13:19 | PTCARENOTE ---
Pt DC'd to home. Pt given DC instructions and verbalized understanding.
== END 2023-09-04 14:14 | disposition home or self-care (01) | DRG 813 ==
LOC: 4 WEST ACU 22:16
PROVIDERS: ADMITTING PHYSICIAN Internal Medicine; ATTENDING PHYSICIAN Internal Medicine; EMERGENCY PHYSICIAN Student in an Organized Health Care Education/Training Program; FAMILY PHYSICIAN Family Medicine; OTHER PHYSICIAN Internal Medicine
PROC: 30233N1 Transfusion of Nonautologous Red Blood Cells into Peripheral Vein, Percutaneous Approach (ICD-10-PCS; 2023-09-03)
DX: D68.32 Hemorrhagic disorder due to extrinsic circulating anticoagulants (principal); I50.32 Chronic diastolic (congestive) heart failure; D62 Acute posthemorrhagic anemia; I48.21 Permanent atrial fibrillation; E11.9 Type 2 diabetes mellitus without complications; E78.5 Hyperlipidemia, unspecified; D50.9 Iron deficiency anemia, unspecified; I11.0 Hypertensive heart disease with heart failure; S81.822A Laceration with foreign body, left lower leg, initial encounter; W26.8XXA Contact with other sharp object(s), not elsewhere classified, initial encounter; Y93.89 Activity, other specified; Y92.008 Other place in unspecified non-institutional (private) residence as the place of occurrence of the external cause; Z79.01 Long term (current) use of anticoagulants; Z86.73 Personal history of transient ischemic attack (TIA), and cerebral infarction without residual deficits; Z86.010 Personal history of colon polyps
CPT/HCPCS: 80048; 80053; 82607; 82728; 82746; 82962; 83036; 83540; 83550; 85018; 85025; 85027; 86850; 86900; 86901; 86920; 93005; 93306; 97162; 97166; 99285; J2916; P9016

== ENCOUNTER 2023-10-03 21:01 | Inpatient (IN) | payer MEDICARE, OTHER, SELFPAY ==
[2023-10-03] VITALS (11 sets, daily range): BP systolic 98–176; BP diastolic 63–97; PULSE 73–94; BMI 32.5
--- NOTE | 2023-10-03 18:57 | ED.GENMED ---
History of Present Illness
General
Chief Complaint: Abnormal Lab Value
Source: patient and family
Time Seen by Provider: 10/03/23 18:40
Travel History
Have you had any contact with someone who has COVID-19?: No
Do you have any symptoms of coronavirus? Fever > 100 degrees, chills, cough, shortness of breath, sore throat, loss of taste or smell, muscle aches, or headache?: No
History of Present Illness
History of Present Illness:
72-year-old male sent to the emergency room because of an abnormal hemoglobin performed as an outpatient. Patient was recently hospitalized for anemia. At that time the anemia was suspected to be related to a leg laceration. Patient was
hospitalized on September 01. He was also noted to have heme positive brown stool at that time. He received a unit of blood and was seen by GI. Patient was discharged outpatient follow-up. He is scheduled for colonoscopy in the coming days and had
some blood work ordered prior to that procedure. He received a call that his hemoglobin was too low and he should come in for a unit of blood. When asked if the patient has had any recent bleeding they deny any rectal bleeding but he did have some
bleeding from his left nipple. 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 Patient does endorse feeling tired and has a decreased appetite but denies any chest
pain, shortness of breath, abdominal pain. Patient denies any black or bloody stool. He is taking Eliquis.
Past History
Past History
ED Past Medical History: Arrthythmia, HTN and NIDDM
ED Past Surgical History: Orthopedic
Social History
Tobacco: Non-smoker
Alcohol: None
Phy Exam
Physical Exam
Physical Exam:
General: Awake, Alert, Oriented X3. No acute distress.
Vitals: unremarkable
Head: Atraumatic
Eyes: Pupils equal, EOMI
Throat: Airway intact, no exudates
Neck: Trachea midline
Chest: The inferior aspect of the left nipple there is a area of scab/eschar noted. It is covered with a spray on material. No obvious mass.
Lungs: Clear and equal b/l
Heart: Regular rate, no murmurs
Abd: Soft, Nontender, No pulsatile mass
Rectal: Heme positive black stool
Neuro: Nonfocal
Skin: Warm, dry, no rash
Extremities: pulses equal b/l, 2+ edema
Course
Orders/Labs/Results
Orders:
Orders
10/03/23 18:41
EKG [Electrocardiogram (*1)] Urgent
Reason for Study: Bradycardia / Tachycardia
10/03/23 18:42
EKG- Treatment ONCE
10/03/23 18:57
Type+Screen Urgent
CBC/With Diff [Complete Blood Count/With Diff] Urgent
CMP [Comprehensive Metabolic Panel] Urgent
10/03/23 19:27
* Blood Bank Products Urgent
Blood Bank Products: *Packed RBC Leuko(PRBC's)
Quantity: 2
Transfuse Today: Yes
Reason: Anemia
10/03/23 20:10
Pantoprazole [Protonix IV] 80 mg IV NOW STA
10/03/23 20:40
Admit/Transfer Patient As Directed
Co-Sign Provider:
Level of Care: Inpatient admission
Assign to:: Telemetry
Physician / Group: floyd obrien
Diagnosis: GI bleed
Reason for Telemetry: Other
Other Reason for Telemetry: anemia
Date to Stop Telemetry: 10/05/23
Time to Stop Telemetry: 11:00
Reason for Hospitalization: GI bleed
Expected length of stay greater than two midnights?: Yes
ELOS- Estimated Length of Stay in days: 3
I certify the patient meets the requirements for IP care: Yes
10/03/23 20:41
Code Status As Directed
Resuscitation Status: Full Code
10/03/23 20:57
US Breast Left Ltd WDC Routine
Reason for Exam: left breast lump and discharge
10/05/23 11:00
DC Protocol for Telemetry ONCE
Abnormal Lab Results
10/03/23
18:57
RBC 2.79 L 10^6/uL
(4.70-6.10)
Hgb 6.6 L* g/dL
(13.0-18.0)
Hct 22.4 L %
(39.0-52.0)
MCH 23.7 L pg
(27.0-31.0)
MCHC 29.5 L g/dL
(33.0-37.0)
RDW 16.2 H %
(11.5-14.5)
MPV 10.7 H fL
(7.4-10.4)
Absolute Lymphs (auto) 0.8 L 10^3/uL
(1.2-3.4)
Lymphocytes % 15.1 L %
(20.5-51.1)
Eosinophils % 7.1 H %
(0-6)
Total Protein 6.0 L g/dl
(6.3-8.2)
Albumin 3.2 L g/dl
(3.5-5.0)
Crossmatch IS Only See Detail
10/03/23 18:57
10/03/23 18:57
Vital Signs
Initial and Last Documented VS:
Initial Vital Signs
Temp Pulse Resp BP Pulse Ox
99.2 F 64 16 98/75 98
10/03/23 17:57 10/03/23 17:57 10/03/23 17:57 10/03/23 17:57 10/03/23 17:57
Last Documented Vital Signs
Temp Pulse Resp BP Pulse Ox
98.7 F 64 16 153/69 98
10/03/23 21:01 10/03/23 21:01 10/03/23 21:01 10/03/23 21:01 10/03/23 21:01
MDM/Problems Addressed
Differential Diagnosis Includes:
upper gi bleed, lower gi bleed, anemia of chronic disease, breast mass,
MDM/Problems Addressed:
Patient presents due to a low hemoglobin on outpatient testing. Hemoglobin is even lower today at 6.6. Rectal exam performed and he has black stool which is heme positive. Patient is taking iron supplementation which could explain the black stool
but it is strongly heme positive. 2 units of packed red blood cells ordered. Patient told to not take his Eliquis. Discussed presentation with GI. Given his significant drop in hemoglobin and the past 1 to 2 days, had strongly heme positive
stool, his use of Eliquis it seems more appropriate to hospitalize the patient to monitor his response to the blood transfusion, monitor for further or more significant GI bleeding and perform his workup in a more expeditious fashion. Patient also
has a left breast lesion which may be a simple abrasion but I feel should be further evaluated as well
*Pulse Oximetry
Patient hypoxic: no
*Critical Care Note
Total Time (30-74mins, 75-104mins- exclusive of procedures): Not Applicable
ED Attending Note
-
Portions of this chart may have been created with voice recognition software.� Occasional wrong word or��sound alike� substitutions may have occurred due to the inherent limitations of voice recognition software.
Discharge Plan
Departure
Patient Disposition: Admit
Date of Disposition: 10/03/23
Time of Disposition: 20:05
Admit to: Med/Surg
Presentation/result/management discussed w/ accepting MD/DO: Hospitalist
Condition: Fair
Discharge Problem:
Symptomatic anemia, GI bleed, Breast lesion
Interventions
Interventions:
*Risk Screen - Suicide Last Done: 10/03/23 17:57
*General Assessment Last Done: 10/03/23 17:57
*Neglect/Abuse Screening Last Done: 10/03/23 17:57
[2023-10-03 19:12] LABS: % Basophils 0.8 % (0-2); % Eosinophils 7.1 % (0-6); % Immature Granulocytes 0.4 % (0-0.5); % Lymphocytes 15.1 % (20.5-51.1); % Monocytes 8.3 % (1.7-9.3); % Neutrophils 68.3 % (42.2-75.2); Absolute Eosinophils 0.4 10^3/uL (0-0.7); Absolute Lymphocytes 0.8 10^3/uL (1.2-3.4); Absolute Monocytes 0.4 10^3/uL (0.1-0.6); Absolute Neutrophils 3.5 10^3/uL (1.4-6.5); Hematocrit 22.4 % (39.0-52.0); Mean Corp Hgb Conc. 29.5 g/dL (33.0-37.0); Mean Corpuscular Hgb 23.7 pg (27.0-31.0); Mean Corpuscular Volume 80.3 fL (80.0-94.0); Mean Platelet Volume 10.7 fL (7.4-10.4); Nucleated Red Blood Cells % 0 % (-); Platelet Count 249 10^3/uL (130-400); Red Blood Cell Count 2.79 10^6/uL (4.70-6.10); Red Cell Dist. Width 16.2 % (11.5-14.5); White Blood Cell Count 5.1 10^3/uL (4.8-10.8)
[2023-10-03 19:15] LABS: Hemoglobin 6.6 g/dL (13.0-18.0)
[2023-10-03 19:27] LABS: ALT (SGPT) 15 U/L (0-50); AST (SGOT) 28 U/L (17-59); Albumin 3.2 g/dl (3.5-5.0); Alkaline Phosphatase 95 U/L (38-126); Blood Urea Nitrogen 16 mg/dl (9-20); Calcium 8.8 mg/dl (8.4-10.2); Carbon Dioxide 24 mmol/L (22-30); Chloride 104 mmol/L (98-107); Glucose 96 mg/dl (70-99); Potassium 4.3 mmol/L (3.5-5.1); Sodium 137 mmol/L (135-145); Total Bilirubin 0.7 mg/dl (0.2-1.3); eGFR > 60.00
--- NOTE | 2023-10-03 20:26 | HPS.HSE ---
Addendum entered and electronically signed by Ez Santos DO 10/03/23 21:01:
Patient seen and examined independently. Agree with findings and plan as set forth by BENNIE Cornejo.
Patient is a 72y M with PMH significant for A-Fib, DM and HTN who presents to ED for evaluation of anemia. Patient was hospitalized 09/01 - 09/03 for anemia and evident LLE laceration. He received 1 unit of PRBCs during that stay for Hgb = 7.5.
His Hgb did not significantly change during that hospital stay (7.4 at discharge). He was also noted to have heme positive, brown stool during that stay and he was seen by GI. Endoscopic examinations have been scheduled for next Saturday for
further evaluation. Patient was started on oral iron at discharge - and his Eliquis was resumed. He has since noted black colored stools; though, they assume this is due to the newly added iron as he did not have black stools previously.
He has had no abdominal pain, chest pain, dyspnea, lightheadedness, etc.
He had outpatient labs done today showing that Hgb was even lower and he was advised to present to the ED for further evaluation.
His LLE laceration site is well-healed. He has some scant bleeding from the L nipple and patient 'thinks I might have scratched myself'. There is a palpable underlying lump.
Hgb here in the ED today is 6.6 g/dL.
Ass:
Anemia - Likely Blood Loss Anemia / Iron Deficiency Anemia
Heme Positive Stools / Melena
Left Nipple Bleeding
Permanent Atrial Fibrillation
DM-II
Benign Hypertension
Chronic LE Edema / Chronic HFpEF / Pulmonary Hypertension
BPH
Plan:
Admit for further evaluation and treatment.
PRBCs x 2 units ordered in the ED.
Hold Eliquis.
GI evaluation for additional recommendations / possible earlier endoscopic eval.
PPI BID for now.
Follow serial H&H and transfuse additional PRBCs as needed.
Original Note:
Family Physician
-
Family Physician: Ayesha Henning MD
Chief Complaint
-
anemia
History of Present Illness
72-year-old male with PMH for HTn, CVA, type 2 DM, atrial fib presented to us with anemia. patient stated chronic black stool as he is on iron pill. denied abdominal pain, n,v,d, constipation. denied BELLA, dizzy or syncopal episode.denied fever,
chills, chest pain, sob. denied dysuria or hematuria. patient also complained of bloody discharge from left nipple. denied any pain.
Patient was recently hospitalized for anemia. At that time the anemia was suspected to be related to a leg laceration. Patient was hospitalized on September 01. He was also noted to have heme positive brown stool at that time. He received a unit of
blood and was seen by GI. Patient was discharged outpatient follow-up. He is scheduled for colonoscopy on Saturday.
heme positive black stool in ER. hgb of 6.8. transfusing with blood. admitting for further managment.
Medical History
Past Medical History
Past Medical History: Reports Other
Additional Past Medical History:
Iron deficiency anemia
Hypertension
Atrial fibs
Essential tremor
Past Surgical History: Reports Other
Additional Past Surgical History:
Bilateral hip replacement
Inguinal hernia repair
Quad tendon repair
vaseectomy
Social History
Tobacco: Non-smoker
Alcohol: Occasional
Drug: None
Personal:
Living: With Family
Family History
Family History: Not pertinent
Allergies / Home Medications
Allergies reflects when Allergies were last updated in [employer].
Home Medications with original date entered in [employer]
Allergy/Medication List:
Allergies
Allergy/AdvReac Type Severity Reaction Status Date / Time
No Known Allergies Allergy Verified 10/03/23 17:56
Home Medications
apixaban 5 mg tablet (Eliquis) 5 mg PO BID #180 tabs 09/26/21
folic acid 1 mg tablet 1 mg PO DAILY #90 tabs 09/26/21
tamsulosin 0.4 mg capsule 0.8 mg (2 x 0.4 mg) PO HS #180 caps 09/26/21
atorvastatin 40 mg tablet 40 mg PO HS 09/02/23
furosemide 20 mg tablet 20 mg PO DAILY PRN swelling 09/02/23
metformin 500 mg tablet,extended release 24 hr 1,000 mg PO BID 09/02/23
multivitamin 1 tab PO DAILY 09/02/23
nebivolol 10 mg tablet 10 mg PO HS 09/02/23
telmisartan 80 mg tablet 80 mg PO HS 09/02/23
ferrous sulfate 325 mg (65 mg iron) tablet (Iron (ferrous sulfate)) 325 mg PO DAILY 10/03/23
tadalafil 20 mg tablet 20 mg PO DAILY PRN ed 10/03/23
Review of Systems
-
Constitutional: Reports No Symptoms
EENT: Reports No Symptoms
Respiratory: Reports No Symptoms
Cardiac: Reports No Symptoms
Abdomen/GI: Reports Black Stools
: Reports No Symptoms
Musculoskeletal: Reports No Symptoms
Skin: Reports No Symptoms
Neurological: Reports No Symptoms
Endocrine: Reports No Symptoms
Hematologic/Lymphatic: Reports No Symptoms
Psych: Reports No Symptoms
Physical Exam
Vital Signs
Vital Signs
Temp Pulse Resp BP Pulse Ox
99.2 F 71 15 164/87 98
10/03/23 17:57 10/03/23 20:15 10/03/23 20:15 10/03/23 20:00 10/03/23 20:15
Physical Exam
General: Well Developed, Well Nourished and No Apparent Distress
HEENT: NormoCephalic, Moist mucous membranes and Atraumatic
Respiratory: Clear
Cardiac: S1/S2 and Regular Rhythm; No Murmur or Rub
GI: Soft, Non Tender, Non Distended and Normal Bowel Sounds; No Organomegaly
Rectal: Deferred by Provider
Musculoskeletal: No Clubbing, No Cyanosis and Other (b/l LE edema)
Skin: No Rash
Neuro: AO x 3 and Nonfocal/grossly intact
Psych: Calm
Laboratory Results
-
10/03/23 18:57
10/03/23 18:57
Laboratory Results
Total Bilirubin 0.7 mg/dl (0.2-1.3) 10/03/23 18:57
AST 28 U/L (17-59) 10/03/23 18:57
ALT 15 U/L (0-50) 10/03/23 18:57
Alkaline Phosphatase 95 U/L (38-126) 10/03/23 18:57
Data Reviewed
-
Lab Data: Labs Reviewed by me
Impression/Plan
-
#Acute blood loss anemia likely GI bleed
-Heme positive black stools
-Hemoglobin 6.8
-Transfusing with 2 unit of blood
-Trend hemoglobin
-IV PPI
-clear liquid diet
-GI consulted
# Left breast nipple discharge
-Will obtain ultrasound of left breast
# Hyperlipidemia
-Statin
# Permanent A-fib
-EKG with atrial fibs, heart rate controlled
-Hold Eliquis
-Continued
# Bilateral lower extremities edema
-Hold Lasix
# Type 2 diabetes
-Hold metformin
-Sliding scale
-Check blood sugar
-Carb controlled diet
# BPH
-Flomax continued
# Essential hypertension
-Blood pressure stable
-Telmisartan continued
# DVT prophylaxis
-SCD
# CODE STATUS
-Full code
[2023-10-03] MEDS: PROTONIX IV 80 MG IV (20:37)
[2023-10-03] MEDS: BYSTOLIC PO (22:31)
[2023-10-03] MEDS: COZAAR PO (22:31)
[2023-10-03] MEDS: FLOMAX PO (22:32)
[2023-10-03] MEDS: LIPITOR PO (22:32)
[2023-10-04] VITALS (7 sets, daily range): BP systolic 128–165; BP diastolic 62–86; PULSE 72–86
[2023-10-04 04:03] LABS: Hematocrit 22.5 % (39.0-52.0); Hemoglobin 7.2 g/dL (13.0-18.0)
[2023-10-04 06:18] LABS: Hematocrit 22.8 % (39.0-52.0); Hemoglobin 7.4 g/dL (13.0-18.0); Mean Corp Hgb Conc. 32.5 g/dL (33.0-37.0); Mean Corpuscular Hgb 25.3 pg (27.0-31.0); Mean Corpuscular Volume 77.8 fL (80.0-94.0); Mean Platelet Volume 10.5 fL (7.4-10.4); Platelet Count 212 10^3/uL (130-400); Red Blood Cell Count 2.93 10^6/uL (4.70-6.10); Red Cell Dist. Width 16.1 % (11.5-14.5); White Blood Cell Count 4.5 10^3/uL (4.8-10.8)
[2023-10-04 06:26] LABS: Blood Urea Nitrogen 14 mg/dl (9-20); Calcium 8.4 mg/dl (8.4-10.2); Carbon Dioxide 26 mmol/L (22-30); Chloride 106 mmol/L (98-107); Estimated Creatinine Clearance 109 ml/min; Glucose 90 mg/dl (70-99); Potassium 4.2 mmol/L (3.5-5.1); Sodium 138 mmol/L (135-145); eGFR > 60.00
[2023-10-04 07:48] LABS: Glucose - Point of Care 116 mg/dl (70-99)
--- NOTE | 2023-10-04 08:09 | CON.GI ---
Addendum entered and electronically signed by Jayant Granda MD 10/04/23 12:26:
Patient seen and examined, agree with nurse practitioner note. Patient is a 72-year-old male with history of A-fib and CVA on Eliquis, CHF overall well compensated, who presents with recurrent anemia. He was recently here with heme positive stool,
and hemoglobin down to 6.5, discharged after transfusion and iron with hemoglobin of 8.1 the repeat was 7.5. He is planning for outpatient procedures next week, given recurrent anemia requiring possible transfusion was admitted. He is overall
feeling well and denies any bowel movements today. Denies any abdominal pain, vomiting, fevers or chills. He had some trauma to his left nipple and had liquid bandage applied to the area and is now firm. On exam he has no significant abdominal
pain or obvious masses though there is some subtle contouring of his abdomen, more likely subcutaneous fat. At this point given his recurrent anemia we will plan to observe over the weekend, preparation on Saturday for EGD and colonoscopy on Saturday.
Pending those results may consider CAT scan. Will continue PPI for now, hold Eliquis and trend labs.
Original Note:
Consultation
-
Date/Time Consultation Requested: 10/03/232157
Date/Time Consultation Performed: 10/03/20 0800
Requesting Provider: BENNIE Cornejo
Performing Provider: Dr. Granda/BENNIE Cleveland
Reason for Consultation: anemia, OB pos stool
Medical History
Chief Complaint / HPI
Chief Complaint: bleeding from leg
History of Present Illness:
Pt is a 72yo with hx afib with prior CVA 2 years ago on chronic Eliquis, CHF with no recent admission and PRN Lasix use, HTN, NIDDM, prior ETOH use with presentation of bleeding initially on 09/04/2023 after cut noted on metal while working at home.
Patient was seen at that time after having large-volume blood loss. He was also noted to be OB positive on exam. He also had issues of early satiety with weight loss. EGD and colonoscopy were planned for 10/09/2023. During that admission patient's
hemoglobin was 6.5. He was transfused 1 unit of packed red blood cells and hemoglobin went up to 7.5. He was discharged home with oral iron and hemoglobin went up to 8.1. He on 09/27/2023 his repeat hemoglobin was 7.5. However outpatient labs
showed decrease in hemoglobin and he was told to present to the emergency room. Patient also had an episode where he caught his left nipple on something and started having bleeding from it. His daughter applied multiple applications of liquid
bandage to the area. The patient states that he continues to have dark bowel movements. The patient denies any fevers, chills, nausea, vomiting, hematochezia, dysphagia or odynophagia. He still does have no appetite. When I saw him he is lost
approximately 4 to 5 pounds from discharge. Hemoglobin in 2021 was 14.8. The patient's last dose of Eliquis was yesterday morning. Labs on presentation WBC count 5.1, hemoglobin 6.6. He is status post 1 unit blood transfusion his hemoglobin is
now 7.4, platelets 212, sodium 138, potassium 4.2, chloride 106, CO2 26, BUN 14, creatinine 0.8, glucose 90, albumin 3.2, total bilirubin 0.7, AST 28, ALT 15.
Past Medical History
Past Medical History: Arrhythmias (afib on eliquis ), CHF (possible in past with PRN Lasix use), CVA, HTN and NIDDM
Social History
Tobacco: Non-Smoker
Alcohol: Chronic Alcoholic (increase amount in past with several beers per day now 1 drink per week)
Drug: None
Personal:
Living: With Family
Employment: Retired
Family History
Family History: Other
Allergies / Home Medications
Allergy/AdvReac Type Severity Reaction Status Date / Time
No Known Allergies Allergy Verified 10/03/23 17:56
�Medication �Instructions �Recorded
apixaban 5 mg tablet (Eliquis) 5 mg PO BID #180 tabs 09/26/21
folic acid 1 mg tablet 1 mg PO DAILY #90 tabs 09/26/21
tamsulosin 0.4 mg capsule 0.8 mg (2 x 0.4 mg) PO HS #180 caps 09/26/21
atorvastatin 40 mg tablet 40 mg PO HS 09/02/23
furosemide 20 mg tablet 20 mg PO DAILY PRN swelling 09/02/23
metformin 500 mg tablet,extended 1,000 mg PO BID 09/02/23
release 24 hr
multivitamin 1 tab PO DAILY 09/02/23
nebivolol 10 mg tablet 10 mg PO HS 09/02/23
telmisartan 80 mg tablet 80 mg PO HS 09/02/23
ferrous sulfate 325 mg (65 mg 325 mg PO DAILY 10/03/23
iron) tablet (Iron (ferrous
sulfate))
tadalafil 20 mg tablet 20 mg PO DAILY PRN ed 10/03/23
Review of Systems
-
All other systems: A 12 pt ROS was Negative except as stated above in HPI
Vital Signs
Temp Pulse Resp BP Pulse Ox
98.2 F 61 12 150/71 97
10/04/23 07:04 10/04/23 07:04 10/04/23 07:04 10/04/23 07:04 10/04/23 07:04
Physical Exam
Exam
General: No Apparent Distress
HEENT: Normocephalic
Respiratory: Clear
Cardiac: Regular Rhythm
Breast: Other (Left nipple with signs of recent bleeding. Liquid bandage with multiple applications with hard clear appearance.)
GI: Soft, Non Tender, Non Distended, Normal Bowel Sounds and Other (Possible small nodularities subcutaneously felt )
Rectal: Black (heme pos stool per ER)
Skin: Warm and Dry
Neuro: AO x 3
Psych: Calm
Results
WBC 4.5 10^3/uL (4.8-10.8) L 10/04/23 05:32
Hgb 7.4 g/dL (13.0-18.0) L 10/04/23 05:32
Hct 22.8 % (39.0-52.0) L 10/04/23 05:32
MCV 77.8 fL (80.0-94.0) L 10/04/23 05:32
Plt Count 212 10^3/uL (130-400) 10/04/23 05:32
Absolute Neuts (auto) 3.5 10^3/uL (1.4-6.5) 10/03/23 18:57
Sodium 138 mmol/L (135-145) 10/04/23 05:32
Potassium 4.2 mmol/L (3.5-5.1) 10/04/23 05:32
Chloride 106 mmol/L (98-107) 10/04/23 05:32
Carbon Dioxide 26 mmol/L (22-30) 10/04/23 05:32
BUN 14 mg/dl (9-20) 10/04/23 05:32
Creatinine 0.8 mg/dL (0.7-1.3) 10/04/23 05:32
Calcium 8.4 mg/dl (8.4-10.2) 10/04/23 05:32
Total Bilirubin 0.7 mg/dl (0.2-1.3) 10/03/23 18:57
AST 28 U/L (17-59) 10/03/23 18:57
ALT 15 U/L (0-50) 10/03/23 18:57
Alkaline Phosphatase 95 U/L (38-126) 10/03/23 18:57
Diagnostic Image Results:
none
Prior GI Procedures:
EGD: never
Colonoscopy: Colonoscopy: [address] Mohamud with 3 mm cecal polyp- TA, IH, and prominent IC valve -- with benign inflammation on bx. No prior EGD.
Assessment / Plan
-
Pt is a 72yo with hx afib with prior CVA 2 years ago on chronic Eliquis, CHF with no recent admission and PRN Lasix use, HTN, NIDDM, prior ETOH use with presentation of bleeding initially on 09/04/2023 after cut noted on metal while working at home.
Patient was seen at that time after having large-volume blood loss. He was also noted to be OB positive on exam. He also had issues of early satiety with weight loss. EGD and colonoscopy were planned for 10/09/2023. During that admission patient's
hemoglobin was 6.5. He was transfused 1 unit of packed red blood cells and hemoglobin went up to 7.5. He was discharged home with oral iron and hemoglobin went up to 8.1. He on 09/27/2023 his repeat hemoglobin was 7.5. Repeat labs 6 days later
with hemoglobin of 6.6. Stool positive for occult blood still. Bleeding from left nipple patient thinks he caught on something.
Impression:
OB positive stool
Anemia
Chronic anticoagulation
Afib/Hx CVA
HFpEF (Lasix prn)
DM
Plan:
-Eliquis on hold
-Plan on EGD/COLO on Saturday
-Keep Hgb > 7
-Continue Pantoprazole 40 mg IV BID
-Ok for light diet today then clear liquids tomorrow and prep on Saturday
-To consider CT abd/pelvis as with some slight abdominal nodularity felt on palpation.
-Further recommendations to be forthcoming
Data Reviewed
-
Old Records: Reviewed
-
-
Thank you for consultation and allowing me to participate in the patient's care. Please call the director clinical information services GI physician during the after hours with any questions or concerns.
[2023-10-04] MEDS: FOLVITE 1 MG PO (08:54)
[2023-10-04] MEDS: NSS (PRESERVATIVE FREE) 10 ML IV ×2 (08:54→21:00)
[2023-10-04] MEDS: NOVOLOG FLEXPEN-LOW RESISTANCE SC ×3 (08:54→16:40)
[2023-10-04] MEDS: PROTONIX IV 40 MG IV ×2 (08:55→21:00)
[2023-10-04 09:11] LABS: Glycohemoglobin (HgbA1c) 5.1 % (4.0-5.6)
--- NOTE | 2023-10-04 12:00 | CM ---
Patient seen bedside, initial assessment completed. Patient reports he lives with his in a two story home, 5 steps to enter. Patient denies DME in the home, reports he has had VN in the past, unsure with who, reports history with [facility] in
[place] after stroke. Patient confirms PCP Ayesha Henning, pharmacy used [facility], confirms prescription coverage. Patient denies food insecurities at home. Per chart, plan for EGD/[place] on Saturday. CM will continue to follow for all
discharge planning needs.
Plan; home no needs anticipated.
[2023-10-04 12:22] LABS: Glucose - Point of Care 114 mg/dl (70-99)
[2023-10-04 13:08] LABS: Hematocrit 27.2 % (39.0-52.0); Hemoglobin 8.4 g/dL (13.0-18.0)
--- NOTE | 2023-10-04 13:57 | W.PN.HOSP.TC ---
Today's Communication/Plan
-
monitor hbg
continue PPI
diet per GI
Assessment / Plan
Assessment / Plan
#Acute blood loss anemia likely GI bleed
-Heme positive black stools
-getting 2 u prbc, f/u hbg level
-Trend hemoglobin
-IV PPI for ow
-clear liquid diet
-GI planning to do EGD on mon after eliquis washout
# Left breast nipple discharge
-mammogram/US showing possible cancer
-pt to f/u with radiologist post discharge for biopsy
# Hyperlipidemia
-Statin
# Permanent A-fib
-EKG with atrial fibs, heart rate controlled
-Hold Eliquis
-Continued
# Bilateral lower extremities edema
-Hold Lasix
# Type 2 diabetes
-Hold metformin
-Sliding scale
-Check blood sugar
-Carb controlled diet
# BPH
-Flomax continued
# Essential hypertension
-Blood pressure stable
-Telmisartan continued
# DVT prophylaxis
-SCD
# CODE STATUS
-Full code
Anticipated Discharge: > 48 hours
Subjective/Interval History
-
Date of Service: October 04, 2023
no reported blood or black stool today
no new issues
Objective Data
-
Labs:
Laboratory Results
10/04/23 10/04/23 10/04/23
03:52 05:32 12:45
WBC 4.5 L
Hgb 7.2 L 7.4 L 8.4 L
Hct 22.5 L 22.8 L 27.2 L
Plt Count 212
Sodium 138
Potassium 4.2
Chloride 106
Carbon Dioxide 26
BUN 14
Creatinine 0.8
Glucose 90
Calcium 8.4
Vital Signs:
Vital Signs
Temp Pulse Resp BP Pulse Ox
98 F 70 16 141/62 97
10/04/23 11:22 10/04/23 11:22 10/04/23 11:22 10/04/23 11:22 10/04/23 11:22
I&O
10/03/23 10/04/23 10/05/23
06:59 06:59 06:59
Intake Total 750 / 750
Output Total 350 / 350
Balance 400 / 400
Review of Systems
-
Respiratory: Reports No Symptoms
Cardiac: Reports No Symptoms
Abdomen/GI: Reports No Symptoms
Physical Exam
-
General: Well Developed
HEENT: Normocephalic
Cardiac: Irregular Rhythm
Breast: Mass/Lump (left breast) and Nipple Discharge (yellowish/blood containing )
GI: Soft and Nontender
Skin: Lesions (Left pretibial laceration that is now sutured with 3 sutures/Jacques wrap)
Neuro: Awake
Hematologic / Lymphatic: Negative Lymphadenopathy (no axillary of neck LN enlargment)
Psych: Calm
[2023-10-04 16:34] LABS: Glucose - Point of Care 104 mg/dl (70-99)
[2023-10-04 19:17] LABS: Hematocrit 22.7 % (39.0-52.0); Hemoglobin 7.4 g/dL (13.0-18.0)
[2023-10-04] MEDS: COZAAR 100 MG PO (21:17)
[2023-10-04] MEDS: BYSTOLIC 10 MG PO (21:18)
[2023-10-04] MEDS: LIPITOR 40 MG PO (21:18)
[2023-10-04] MEDS: FLOMAX 0.800000000000000044 MG PO (21:18)
[2023-10-04 21:27] LABS: Glucose - Point of Care 144 mg/dl (70-99)
[2023-10-05 04:05] VITALS: BP 158/78
[2023-10-05 07:00] VITALS: BP 150/83
[2023-10-05 07:15] LABS: % Basophils 0.4 % (0-2); % Eosinophils 5.1 % (0-6); % Immature Granulocytes 0.4 % (0-0.5); % Lymphocytes 12.3 % (20.5-51.1); % Monocytes 8.9 % (1.7-9.3); % Neutrophils 72.9 % (42.2-75.2); Absolute Eosinophils 0.2 10^3/uL (0-0.7); Absolute Lymphocytes 0.6 10^3/uL (1.2-3.4); Absolute Monocytes 0.4 10^3/uL (0.1-0.6); Absolute Neutrophils 3.3 10^3/uL (1.4-6.5); Hematocrit 23.5 % (39.0-52.0); Hemoglobin 7.5 g/dL (13.0-18.0); Mean Corp Hgb Conc. 31.9 g/dL (33.0-37.0); Mean Corpuscular Hgb 25.1 pg (27.0-31.0); Mean Corpuscular Volume 78.6 fL (80.0-94.0); Mean Platelet Volume 10.6 fL (7.4-10.4); Nucleated Red Blood Cells % 0 % (-); Platelet Count 222 10^3/uL (130-400); Red Blood Cell Count 2.99 10^6/uL (4.70-6.10); Red Cell Dist. Width 16.3 % (11.5-14.5); White Blood Cell Count 4.5 10^3/uL (4.8-10.8)
[2023-10-05 07:27] LABS: Glucose - Point of Care 127 mg/dl (70-99)
[2023-10-05 07:39] LABS: Blood Urea Nitrogen 11 mg/dl (9-20); Calcium 8.4 mg/dl (8.4-10.2); Carbon Dioxide 26 mmol/L (22-30); Chloride 105 mmol/L (98-107); Estimated Creatinine Clearance 97 ml/min; Glucose 100 mg/dl (70-99); Potassium 4.1 mmol/L (3.5-5.1); Sodium 138 mmol/L (135-145); eGFR > 60.00
[2023-10-05] MEDS: NOVOLOG FLEXPEN-LOW RESISTANCE SC ×3 (08:57→16:35)
[2023-10-05] MEDS: FOLVITE 1 MG PO (08:57)
[2023-10-05] MEDS: PROTONIX IV 40 MG IV ×2 (08:57→20:11)
[2023-10-05] MEDS: NSS (PRESERVATIVE FREE) 10 ML IV ×2 (08:58→20:12)
--- NOTE | 2023-10-05 09:37 | W.PN.GI.CBS2 ---
Today's Communication / Plan
-
Please see assessment and plan for details.
Assessment / Plan
-
1. Anemia: with acute blood loss after laceration with underlying iron deficiency in the setting of anticoagulation, required multiple transfusions, overall stable. Will plan EGD and colonoscopy on Saturday. He will follow-up for biopsy of breast
mass as an outpatient.
Subjective
Subjective
Date of Service: October 05, 2023
Patient doing okay, no signs of bleeding, no abdominal pain. Mammogram did show
Objective
Data Reviewed
Laboratory Data:
Laboratory Results
10/05/23 06:14
10/05/23 06:14
Laboratory Results
Total Bilirubin 0.7 mg/dl (0.2-1.3) 10/03/23 18:57
AST 28 U/L (17-59) 10/03/23 18:57
ALT 15 U/L (0-50) 10/03/23 18:57
Alkaline Phosphatase 95 U/L (38-126) 10/03/23 18:57
Vital Signs and I&O:
Vital Signs
Temp Pulse Resp BP Pulse Ox
97.8 F 71 18 150/83 95
10/05/23 07:00 10/05/23 07:00 10/05/23 07:00 10/05/23 07:00 10/05/23 07:00
I&O
10/04/23 10/05/23 10/06/23
06:59 06:59 06:59
Intake Total 750 / 750 700 / 700
Output Total 350 / 350 550 / 550
Balance 400 / 400 150 / 150
Physical Exam
Physical Exam
General: NAD
Abdomen: normal bowel sounds, soft, no tenderness, no masses or bruits, no ascites
--- NOTE | 2023-10-05 10:10 | W.PN.HOSP.TC ---
Addendum entered and electronically signed by Navin Kelly MD 10/05/23 13:50:
RN reported of patient having asymptomatic sinus bradycardia with heart rate in 30-40 range
EKG ordered
Patient on nebivolol at night, hold dose tonight
Check TSH free T4 in the morning
Original Note:
Today's Communication/Plan
-
f/u hbg level
iron infusion daily
Assessment / Plan
Assessment / Plan
#Acute blood loss anemia likely GI bleed
KARO
-Heme positive black stools
-got 2 u prbc, f/u hbg level 7.5 today, transfuse if <7
-IV PPI for ow
-clear liquid diet
-GI planning to do EGD on mon after eliquis washout
-starting on Ferlicit IV daily for now.
# Left breast nipple discharge
-mammogram/US showing possible cancer
-pt to f/u with radiologist post discharge for biopsy
# Hyperlipidemia
-Statin
# Permanent A-fib
-EKG with atrial fibs, heart rate controlled
-Hold Eliquis
# Bilateral lower extremities edema
-Hold Lasix as on CL diet, resume back once appropriate
# Type 2 diabetes
-Hold metformin
-Sliding scale
-Check blood sugar
-Carb controlled diet
# BPH
-Flomax continued
# Essential hypertension
-Blood pressure stable
-Telmisartan continued
DVT prophylaxis-SCD
CODE STATUS- Full code
Anticipated Discharge: > 48 hours
Subjective/Interval History
-
Date of Service: October 05, 2023
no reported melena/hematochezia overnight
denies abd pain/nausea/vomiting
Objective Data
-
Labs:
Laboratory Results
10/05/23
06:14
WBC 4.5 L
Hgb 7.5 L
Hct 23.5 L
Plt Count 222
Sodium 138
Potassium 4.1
Chloride 105
Carbon Dioxide 26
BUN 11
Creatinine 0.9
Glucose 100 H
Calcium 8.4
Vital Signs:
Vital Signs
Temp Pulse Resp BP Pulse Ox
97.8 F 71 18 150/83 95
10/05/23 07:00 10/05/23 07:00 10/05/23 07:00 10/05/23 07:00 10/05/23 07:00
I&O
10/04/23 10/05/23 10/06/23
06:59 06:59 06:59
Intake Total 750 / 750 700 / 700
Output Total 350 / 350 550 / 550
Balance 400 / 400 150 / 150
Review of Systems
-
Respiratory: Reports No Symptoms
Cardiac: Reports No Symptoms
Abdomen/GI: Reports No Symptoms
Physical Exam
-
General: Conversant and Obese
HEENT: Negative Oxygen
Respiratory: Clear to Auscultation
Cardiac: Regular Rhythm and S1/S2; Negative Murmur
Breast: Mass/Lump (left breast) and Nipple Discharge (yellowish/blood containing )
GI: Soft, Nontender and Nondistended
Skin: Lesions (Left pretibial laceration that is now sutured with 3 sutures/Jacques wrap)
Neuro: Awake, Alert and Central Nerve's Intact
Hematologic / Lymphatic: Negative Lymphadenopathy (no axillary of neck LN enlargment)
Psych: Calm
[2023-10-05 11:00] VITALS: BP 162/85
[2023-10-05 11:34] LABS: Glucose - Point of Care 134 mg/dl (70-99)
[2023-10-05] MEDS: FERRLECIT 110 MG IV (13:11)
[2023-10-05 15:00] VITALS: BP 137/71
[2023-10-05 16:36] LABS: Glucose - Point of Care 112 mg/dl (70-99)
[2023-10-05 20:43] VITALS: BP 180/99
[2023-10-05] MEDS: FLOMAX 0.800000000000000044 MG PO (21:04)
[2023-10-05] MEDS: LIPITOR 40 MG PO (21:04)
[2023-10-05] MEDS: COZAAR 100 MG PO (21:04)
[2023-10-05 21:15] LABS: Glucose - Point of Care 135 mg/dl (70-99)
[2023-10-06] VITALS (7 sets, daily range): BP systolic 138–167; BP diastolic 66–90
[2023-10-06 00:56] LABS: Urine Albumin Negative (Neg - Trace); Urine Bilirubin Negative (Negative); Urine Character Clear (Clear); Urine Color Yellow; Urine Glucose Negative (Negative); Urine Ketone Negative (Negative); Urine Leukocyte Negative (Negative); Urine Nitrite Negative (Negative); Urine Occult Blood Negative (Negative); Urine Specific Gravity 1.005 (<1.030); Urine Urobilinogen 1+ (Neg - 1+); Urine pH 6.5 (5.0-9.0)
[2023-10-06 07:15] LABS: Glucose - Point of Care 117 mg/dl (70-99)
[2023-10-06 07:55] LABS: % Eosinophils 6.9 % (0-6); % Lymphocytes 11.7 % (20.5-51.1); % Monocytes 9.9 % (1.7-9.3); % Neutrophils 70.5 % (42.2-75.2); Absolute Eosinophils 0.3 10^3/uL (0-0.7); Absolute Lymphocytes 0.5 10^3/uL (1.2-3.4); Absolute Monocytes 0.4 10^3/uL (0.1-0.6); Absolute Neutrophils 2.8 10^3/uL (1.4-6.5); Hematocrit 24.4 % (39.0-52.0); Hemoglobin 7.6 g/dL (13.0-18.0); Mean Corp Hgb Conc. 31.1 g/dL (33.0-37.0); Mean Corpuscular Hgb 25.2 pg (27.0-31.0); Mean Corpuscular Volume 81.1 fL (80.0-94.0); Mean Platelet Volume 10.6 fL (7.4-10.4); Nucleated Red Blood Cells % 0 % (-); Platelet Count 224 10^3/uL (130-400); Red Blood Cell Count 3.01 10^6/uL (4.70-6.10); Red Cell Dist. Width 16.5 % (11.5-14.5)
[2023-10-06] MEDS: NOVOLOG FLEXPEN-LOW RESISTANCE SC ×3 (08:01→16:42)
[2023-10-06 08:12] LABS: Blood Urea Nitrogen 9 mg/dl (9-20); Calcium 8.4 mg/dl (8.4-10.2); Carbon Dioxide 27 mmol/L (22-30); Chloride 106 mmol/L (98-107); Estimated Creatinine Clearance 97 ml/min; Glucose 103 mg/dl (70-99); Potassium 4.1 mmol/L (3.5-5.1); Sodium 138 mmol/L (135-145); eGFR > 60.00
[2023-10-06] MEDS: PROTONIX IV 40 MG IV ×2 (08:35→20:20)
[2023-10-06] MEDS: FOLVITE 1 MG PO (08:36)
[2023-10-06] MEDS: NSS (PRESERVATIVE FREE) 10 ML IV ×2 (08:36→20:20)
[2023-10-06 08:38] LABS: TSH 0.09 uIU/ml (0.47-4.68)
[2023-10-06 12:05] LABS: Glucose - Point of Care 112 mg/dl (70-99)
[2023-10-06] MEDS: FERRLECIT 110 MG IV (13:33)
--- NOTE | 2023-10-06 14:22 | W.PN.HOSP.TC ---
Today's Communication/Plan
-
continue current care
for egd tomorrow
Assessment / Plan
Assessment / Plan
#Acute blood loss anemia likely GI bleed
Iron def anemia
-Heme positive black stools
-got 2 u prbc, f/u hbg level 7.5 today, transfuse if <7
-IV PPI for ow
-clear liquid diet
-GI planning to do EGD on mon after eliquis washout
-starting on Ferlicit IV daily for now.
# Left breast nipple discharge
-mammogram/US showing possible cancer
-pt to f/u with radiologist post discharge for biopsy
# Hyperlipidemia
-Statin
# Permanent A-fib
-EKG with atrial fibs, heart rate controlled
-Hold Eliquis
# Bilateral lower extremities edema
-Hold Lasix as on CL diet, resume back once appropriate
# Type 2 diabetes
-Hold metformin
-Sliding scale
-Check blood sugar
-Carb controlled diet
# BPH
-Flomax continued
# Essential hypertension
-Blood pressure stable
-Telmisartan continued
DVT prophylaxis-SCD
CODE STATUS- Full code
Anticipated Discharge: Within 24 hours
Subjective/Interval History
-
Date of Service: October 06, 2023
No new problems overnight
No melena/lower GI bleed
Objective Data
-
Labs:
Laboratory Results
10/06/23
06:52
WBC 4.0 L
Hgb 7.6 L
Hct 24.4 L
Plt Count 224
Sodium 138
Potassium 4.1
Chloride 106
Carbon Dioxide 27
BUN 9
Creatinine 0.9
Glucose 103 H
Calcium 8.4
Vital Signs:
Vital Signs
Temp Pulse Resp BP Pulse Ox
98 F 67 18 148/76 97
10/06/23 11:00 10/06/23 11:00 10/06/23 11:00 10/06/23 11:00 10/06/23 11:00
I&O
10/05/23 10/06/23 10/07/23
06:59 06:59 06:59
Intake Total 700 / 700 980 / 980
Output Total 550 / 550 1200 / 1200
Balance 150 / 150 -220 / -220
Review of Systems
-
Respiratory: Reports No Symptoms
Cardiac: Reports No Symptoms
Abdomen/GI: Reports No Symptoms
Physical Exam
-
General: Conversant and Obese
HEENT: Negative Oxygen
Respiratory: Clear to Auscultation
Cardiac: Regular Rhythm and S1/S2; Negative Murmur
Breast: Mass/Lump (left breast) and Nipple Discharge (yellowish/blood containing )
GI: Soft, Nontender and Nondistended
Skin: Lesions (Left pretibial laceration that is now sutured with 3 sutures/Jacques wrap)
Neuro: Awake, Alert and Central Nerve's Intact
Hematologic / Lymphatic: Negative Lymphadenopathy (no axillary of neck LN enlargment)
Psych: Calm
[2023-10-06] MEDS: NULYTELY SOLUTION 4 LITERS PO (16:03)
[2023-10-06 16:38] LABS: Glucose - Point of Care 132 mg/dl (70-99)
[2023-10-06 21:16] LABS: Glucose - Point of Care 110 mg/dl (70-99)
[2023-10-06] MEDS: COZAAR 100 MG PO (22:07)
[2023-10-06] MEDS: LIPITOR 40 MG PO (22:07)
[2023-10-06] MEDS: FLOMAX 0.800000000000000044 MG PO (22:07)
[2023-10-07] VITALS (7 sets, daily range): BP systolic 103–162; BP diastolic 53–90
[2023-10-07 05:48] LABS: Glucose - Point of Care 101 mg/dl (70-99)
[2023-10-07 07:46] LABS: % Basophils 0.8 % (0-2); % Immature Granulocytes 0.3 % (0-0.5); % Lymphocytes 12.1 % (20.5-51.1); % Monocytes 7.7 % (1.7-9.3); % Neutrophils 71.1 % (42.2-75.2); Absolute Eosinophils 0.3 10^3/uL (0-0.7); Absolute Lymphocytes 0.5 10^3/uL (1.2-3.4); Absolute Monocytes 0.3 10^3/uL (0.1-0.6); Absolute Neutrophils 2.8 10^3/uL (1.4-6.5); Hematocrit 25.4 % (39.0-52.0); Hemoglobin 7.9 g/dL (13.0-18.0); Mean Corp Hgb Conc. 31.1 g/dL (33.0-37.0); Mean Corpuscular Hgb 25.3 pg (27.0-31.0); Mean Corpuscular Volume 81.4 fL (80.0-94.0); Mean Platelet Volume 10.6 fL (7.4-10.4); Nucleated Red Blood Cells % 0 % (-); Platelet Count 232 10^3/uL (130-400); Red Blood Cell Count 3.12 10^6/uL (4.70-6.10); Red Cell Dist. Width 16.8 % (11.5-14.5); White Blood Cell Count 3.9 10^3/uL (4.8-10.8)
[2023-10-07 07:55] LABS: INR 1.46; PT 17.6 Sec (11.4-14.6)
[2023-10-07] MEDS: NOVOLOG FLEXPEN-LOW RESISTANCE SC ×3 (08:04→18:01)
[2023-10-07] MEDS: FOLVITE 1 MG PO (08:05)
[2023-10-07] MEDS: NSS (PRESERVATIVE FREE) 10 ML IV ×2 (08:05→20:32)
[2023-10-07] MEDS: PROTONIX IV 40 MG IV ×2 (08:12→20:32)
[2023-10-07 08:24] LABS: Blood Urea Nitrogen 7 mg/dl (9-20); Calcium 8.6 mg/dl (8.4-10.2); Carbon Dioxide 23 mmol/L (22-30); Chloride 106 mmol/L (98-107); Estimated Creatinine Clearance 97 ml/min; Glucose 90 mg/dl (70-99); Sodium 137 mmol/L (135-145); eGFR > 60.00
[2023-10-07 08:29] LABS: Potassium 3.9 mmol/L (3.5-5.1)
--- NOTE | 2023-10-07 09:06 | W.PN.HOSP.TC ---
Today's Communication/Plan
-
EGD and colonoscopy. Oncology consult.
Assessment / Plan
Assessment / Plan
Physical exam:
General: Well Developed, Well Nourished and No Apparent Distress
HEENT: Normocephalic, Atraumatic and Moist Mucous Membranes
Respiratory: Clear to Auscultation; Negative Wheezes, Rales or Rhonchi
Cardiac: Regular Rhythm and S1/S2
GI: Soft, Nontender and Nondistended
Musculoskeletal: No Clubbing, No Cyanosis and No Edema
Neuro: Awake, Alert and Oriented
Psych: Calm
A/P:
#Acute blood loss anemia likely GI bleed
Iron def anemia
-Heme positive black stools
-got 2 u prbc, f/u hbg level 7.5 today, transfuse if <7
-IV PPI for ow
-clear liquid diet
-GI planning to do EGD on mon after eliquis washout
-Discussed with at bedside prior to procedure today
-starting on Ferlicit IV daily.
-Endoscopy and colonoscopy today--> colonoscopy poor prep and endoscopy showed some fungating mass and GI recommended oncology consult.
# Left breast nipple discharge
-mammogram/US showing possible cancer
-pt to f/u with radiologist post discharge for biopsy
# Hyperlipidemia
-Statin
# Permanent A-fib
-EKG with atrial fibs, heart rate controlled
-Hold Eliquis
# Bilateral lower extremities edema
-Hold Lasix as on CL diet, resume back once appropriate
# Type 2 diabetes
-Hold metformin
-Sliding scale
-Check blood sugar
-Carb controlled diet
# BPH
-Flomax continued
# Essential hypertension
-Blood pressure stable
-Telmisartan continued
DVT prophylaxis-SCD
CODE STATUS- Full code
Total time spent on today's encounter was 52 minutes which included time spent in counseling the patient/family regarding diagnosis and treatment plan as listed above, goals of care, and symptom management. Case was discussed with nursing staff,
specialists, and care coordinators/case management. All labs and imaging personally reviewed by me. Remainder the time spent in detailed review of previous records, lab data, imaging, and other medical provider documentation.
Anticipated Discharge: > 48 hours
Subjective/Interval History
-
Date of Service: October 07, 2023
Patient denies any further bleeding. No chest pain or shortness of breath
Objective Data
-
Labs:
Laboratory Results
10/07/23
07:07
WBC 3.9 L
Hgb 7.9 L
Hct 25.4 L
Plt Count 232
PT 17.6 H
INR 1.46
Sodium 137
Potassium 3.9
Chloride 106
Carbon Dioxide 23
BUN 7 L
Creatinine 0.9
Glucose 90
Calcium 8.6
Vital Signs:
Vital Signs
Temp Pulse Resp BP Pulse Ox
98.2 F 73 16 142/79 95
10/07/23 07:00 10/07/23 07:00 10/07/23 07:00 10/07/23 07:00 10/07/23 07:00
I&O
10/06/23 10/07/23 10/08/23
06:59 06:59 06:59
Intake Total 980 / 980 1320 / 1320
Output Total 1200 / 1200 750 / 750
Balance -220 / -220 570 / 570
[2023-10-07 12:51] LABS: Glucose - Point of Care 90 mg/dl (70-99)
[2023-10-07 13:27] LABS: Glucose - Point of Care 109 mg/dl (70-99)
[2023-10-07] MEDS: OMNIPAQUE 50 ML PO (13:52)
[2023-10-07] MEDS: FERRLECIT 110 MG IV (13:57)
--- NOTE | 2023-10-07 16:10 | CM ---
CM reviewed chart, EGD/colonoscopy today, oncology consulted. Patient seen with , reports no needs to CM at this time. CM will continue to follow for all discharge planning needs.
Plan; home no needs anticipated.
--- NOTE | 2023-10-07 16:30 | CON.ONC ---
Impression
Impression
Apparent carcinoma GE junction
Left breast mass suspicious for cancer
50 pound weight loss
Iron deficiency anemia
Borderline B12 levels
History of CVA in association with atrial fibrillation
Plan
Plan
Await CT scans as ordered by GI. Await biopsy results. I have asked breast surgery to see him regarding the suspicious mass of the left breast. Check methylmalonic acid. We will continue to follow.
Patient History
History of Present Illness
Consult from Dr. Granda regarding possible esophageal cancer
This 72-year-old man was admitted with anemia. He had come to the emergency room for a laceration and one of his lower extremities. He was somewhat anemic but this worsened. He has been unaware of any GI bleeding. Indeed, he has little in the
way of GI symptoms, and specifically denies dysphagia. He was found to have iron deficiency, as well as a borderline B12 level of 277. He has been transfused and started on IV iron. He underwent colonoscopy which did not reveal any abnormalities,
but it was a poor prep. An EGD showed a mass in the distal esophagus extending 5 cm into the stomach. There was evidence of recent bleeding. Biopsy is pending. CT scans are pending. Also noted was some bleeding from his left breast. Both
mammography and ultrasound are category 4, suspicious for malignancy.
Past-Medical/Surgical History
As per problem list below.
Social history: He is currently a smoker. He lives with his family.
Family history: His sister had breast cancer in a fairly young age. There is also lung cancer in one of his siblings. Neither parent had any form of cancer.
Patient Medication
�Medication �Instructions �Recorded �Confirmed �Last Taken �Type
apixaban 5 mg tablet (Eliquis) 5 mg PO BID #180 tabs 09/26/21 10/03/23 10/03/23 Rx
folic acid 1 mg tablet 1 mg PO DAILY #90 tabs 09/26/21 10/03/23 10/03/23 Rx
tamsulosin 0.4 mg capsule 0.8 mg (2 x 0.4 mg) PO HS #180 caps 09/26/21 10/03/23 10/03/23 Rx
atorvastatin 40 mg tablet 40 mg PO HS 09/02/23 10/03/23 10/03/23 History
furosemide 20 mg tablet 20 mg PO DAILY PRN swelling 09/02/23 10/03/23 Unknown History
metformin 500 mg tablet,extended 1,000 mg PO BID 09/02/23 10/03/23 10/03/23 History
release 24 hr
multivitamin 1 tab PO DAILY 09/02/23 10/03/23 10/01/23 History
nebivolol 10 mg tablet 10 mg PO HS 09/02/23 10/03/23 10/03/23 History
telmisartan 80 mg tablet 80 mg PO HS 09/02/23 10/03/23 10/03/23 History
ferrous sulfate 325 mg (65 mg 325 mg PO DAILY 10/03/23 10/03/23 10/01/23 History
iron) tablet (Iron (ferrous
sulfate))
tadalafil 20 mg tablet 20 mg PO DAILY PRN ed 10/03/23 10/03/23 Unknown History
Active Medications
Generic Name Dose Route Start Last Admin
Trade Name Freq PRN Reason Stop Dose Admin
Atorvastatin Calcium 40 mg 10/03/23 22:00 10/06/23 22:07
Atorvastatin (Lipitor) 40 Mg Tablet PO 10/31/23 21:59 40 mg
HS EARL Administration
Dextrose 12.5 grams 10/03/23 21:58
Dextrose 50% (0.5 Grams/Ml) 50 Ml Syringe IV 10/31/23 21:57
[id number] PRN
hypoglycemia
Protocol
Folic Acid 1 mg 10/04/23 08:00 10/07/23 08:05
Folic Acid 1 Mg Tablet PO 11/01/23 07:59 1 mg
DAILY EARL Administration
Glucagon 1 mg 10/03/23 21:58
Glucagon 1 Mg Vial IM 10/31/23 21:57
PRN PRN
hypoglycemia
Protocol
Ferric Sodium Gluconate 110 mls @ 110 mls/hr 10/05/23 14:00 10/07/23 13:57
Complex 125 mg/ Sodium IV 10/09/23 14:59 110 mls
Chloride DAILY@1400 EARL Administration
Insulin Aspart 0 units 10/04/23 07:30 10/07/23 12:53
Insulin Aspart Low Resistance 300 Units/3 Ml Pen.Injctr SC 11/01/23 07:29 Not Given
AC EARL
Protocol
Losartan Potassium 100 mg 10/03/23 22:00 10/06/23 22:07
Losartan 100 Mg Tablet PO 10/31/23 21:59 100 mg
HS EARL Administration
Nebivolol 10 mg 10/03/23 22:00 10/04/23 21:18
Nebivolol Hcl 10 Mg Tablet PO 10/31/23 21:59 10 mg
HS EARL Administration
Pantoprazole Sodium 40 mg 10/04/23 08:00 10/07/23 08:12
Pantoprazole Sodium 40 Mg/10 Ml Vial IV 11/01/23 07:59 40 mg
BID EARL Administration
Sodium Chloride 0 flush 10/03/23 22:00
Sodium Chloride 0.9% (Flush) Syringe IV 10/31/23 21:59
PER PROTOCOL EARL
Sodium Chloride 10 ml 10/04/23 08:00 10/07/23 08:05
Sodium Chloride 0.9% (Preservative Free) 10 Ml Vial IV 11/01/23 07:59 10 ml
BID EARL Administration
Tamsulosin HCl 0.8 mg 10/03/23 22:00 10/06/23 22:07
Tamsulosin 0.4 Mg Capsule PO 10/31/23 21:59 0.8 mg
HS EARL Administration
Review of Systems
-
All Other Systems: Reviewed and Negative
Physical Exam
-
Physical examination shows the patient to be in no acute distress.
HEENT exam is unremarkable.
There are no palpable nodes.
Chest is clear.
The nipple of the left breast is slightly inverted and deformed, suggestion of an underlying mass.
The heart is irregular with no murmur or gallop.
The abdomen is soft and nontender with no organomegaly or masses.
Extremities reveal +1 edema bilaterally.
Neurologic is grossly intact.
Labs
Lab Results
WBC 3.9 10^3/uL (4.8-10.8) L 10/07/23 07:07
RBC 3.12 10^6/uL (4.70-6.10) L 10/07/23 07:07
Hgb 7.9 g/dL (13.0-18.0) L 10/07/23 07:07
Hct 25.4 % (39.0-52.0) L 10/07/23 07:07
MCV 81.4 fL (80.0-94.0) 10/07/23 07:07
MCH 25.3 pg (27.0-31.0) L 10/07/23 07:07
MCHC 31.1 g/dL (33.0-37.0) L 10/07/23 07:07
RDW 16.8 % (11.5-14.5) H 10/07/23 07:07
Plt Count 232 10^3/uL (130-400) 10/07/23 07:07
MPV 10.6 fL (7.4-10.4) H 10/07/23 07:07
Abs Immat Gran (auto) 0.0 10^3/uL (0-0.05) 10/07/23 07:07
Absolute Neuts (auto) 2.8 10^3/uL (1.4-6.5) 10/07/23 07:07
Absolute Lymphs (auto) 0.5 10^3/uL (1.2-3.4) L 10/07/23 07:07
Absolute Monos (auto) 0.3 10^3/uL (0.1-0.6) 10/07/23 07:07
Absolute Eos (auto) 0.3 10^3/uL (0-0.7) 10/07/23 07:07
Absolute Basos (auto) 0.0 10^3/uL (0-0.2) 10/07/23 07:07
Immature Gran % 0.3 % (0-0.5) 10/07/23 07:07
Neutrophils % 71.1 % (42.2-75.2) 10/07/23 07:07
Lymphocytes % 12.1 % (20.5-51.1) L 10/07/23 07:07
Monocytes % 7.7 % (1.7-9.3) 10/07/23 07:07
Eosinophils % 8.0 % (0-6) H 10/07/23 07:07
Basophils % 0.8 % (0-2) 10/07/23 07:07
Creatinine 0.9 mg/dL (0.7-1.3) 10/07/23 07:07
Vital Signs
Vital Signs
Temp Pulse Resp BP Pulse Ox
97.7 F 76 11 153/88 97
10/07/23 13:05 10/07/23 12:38 10/07/23 12:38 10/07/23 12:38 10/07/23 12:38
[2023-10-07 17:17] LABS: Glucose - Point of Care 132 mg/dl (70-99)
--- NOTE | 2023-10-07 18:06 | CON.GS ---
Consultation
-
Date/Time Consultation Requested: 10/08/23 16:29
Date/Time Consultation Performed: 10/08/23 18:07
Requesting Provider: Angeli
Performing Provider: Riky
Reason for Consultation: Left breast mass
Medical History
-
Chief Complaint: Anemia, weakness
History of Present Illness:
72 Y/O male admitted for anemia and work up showing probably esophageal ca. Pt denies any symptoms including dysphagia or weight loss. Has had bleeding from left nipple, in retrospect once after a chiropractic manipulation and more recently after
disrobing and believing he scratched his nipple. His daughter put surgical glue on the left nipple complex. His siter was diagnosed with breast cancer in her 30's and is still alive. Parents of emphysema and CVA. He is here with his .
Past Medical History
Past Medical History: Reviewed & Noncontributory
Past Surgical History: Reviewed & Noncontributory
Social History
Tobacco: Smoker
Personal:
Living: With Family
Employment: Retired
Family History
Family History: Cancer
Allergies / Home Medications
Allergy/AdvReac Type Severity Reaction Status Date / Time
No Known Allergies Allergy Verified 10/03/23 17:56
�Medication �Instructions �Recorded �Confirmed �Type
apixaban 5 mg tablet (Eliquis) 5 mg PO BID #180 tabs 09/26/21 10/03/23 Rx
folic acid 1 mg tablet 1 mg PO DAILY #90 tabs 09/26/21 10/03/23 Rx
tamsulosin 0.4 mg capsule 0.8 mg (2 x 0.4 mg) PO HS #180 caps 09/26/21 10/03/23 Rx
atorvastatin 40 mg tablet 40 mg PO HS 09/02/23 10/03/23 History
furosemide 20 mg tablet 20 mg PO DAILY PRN swelling 09/02/23 10/03/23 History
metformin 500 mg tablet,extended 1,000 mg PO BID 09/02/23 10/03/23 History
release 24 hr
multivitamin 1 tab PO DAILY 09/02/23 10/03/23 History
nebivolol 10 mg tablet 10 mg PO HS 09/02/23 10/03/23 History
telmisartan 80 mg tablet 80 mg PO HS 09/02/23 10/03/23 History
ferrous sulfate 325 mg (65 mg 325 mg PO DAILY 10/03/23 10/03/23 History
iron) tablet (Iron (ferrous
sulfate))
tadalafil 20 mg tablet 20 mg PO DAILY PRN ed 10/03/23 10/03/23 History
Review of Systems
-
History Source: Patient and Family
All other systems: Negative unless noted
A 10 point review of systems was completed, and was negative except as per HPI.
Physical Exam
Vital Signs
Temp Pulse Resp BP Pulse Ox
97.4 F 75 16 157/88 98
10/07/23 15:00 10/07/23 15:00 10/07/23 15:00 10/07/23 15:00 10/07/23 15:00
Body Mass Index (BMI) 32.5
Lab Results
10/07/23 07:07
10/07/23 07:07
WBC 3.9 10^3/uL (4.8-10.8) L 10/07/23 07:07
Hgb 7.9 g/dL (13.0-18.0) L 10/07/23 07:07
Hct 25.4 % (39.0-52.0) L 10/07/23 07:07
Plt Count 232 10^3/uL (130-400) 10/07/23 07:07
Abs Immat Gran (auto) 0.0 10^3/uL (0-0.05) 10/07/23 07:07
Neutrophils % 71.1 % (42.2-75.2) 10/07/23 07:07
Physical Exam
General: Well Developed, Well Nourished and No Apparent Distress
HEENT: Normocephalic and Anicteric
Respiratory: Clear
Breast: Mass/Lump, Puckering and Other (No adenopathy, suspicious mass involving the left nipple and retroareolar region)
GI: Soft and Non Tender
Musculoskeletal: No Clubbing and No Cyanosis
Skin: Warm and Dry
Neuro: Awake, Alert and Oriented
Hematologic/Lymphatic: No Lymphadenopathy
Psych: Calm
Data Reviewed
-
Radiology: Image Personally Visualized and interpreted, Discussed with Patient and Discussed with Family
CT Scan: Image Personally Visualized and interpreted, Discussed with Patient and Discussed with Family
Ultrasound: Image Personally Visualized and interpreted, Discussed with Patient and Discussed with Family
Labs: Labs Reviewed by me
Total Time Spent with Patient (in minutes): 15
Assessment / Plan
-
72 Y/O male with left breast mass that is concerning for carcinoma. He should undergo US-guided core biopsy that would be performed in the [facility]. Will discuss with them and hospitalist tomorrow. He does not need to fast for that.
Important to obtain breast diagnosis this admission as it will affect other cancer treatment.
[2023-10-07 23:12] LABS: Glucose - Point of Care 160 mg/dl (70-99)
[2023-10-07] MEDS: FLOMAX 0.800000000000000044 MG PO (23:54)
[2023-10-07] MEDS: BYSTOLIC 10 MG PO (23:54)
[2023-10-07] MEDS: LIPITOR 40 MG PO (23:54)
[2023-10-07] MEDS: COZAAR 100 MG PO (23:55)
[2023-10-08 03:55] VITALS: BP 106/54
[2023-10-08 07:03] LABS: Hematocrit 25.8 % (39.0-52.0); Mean Corpuscular Hgb 25.2 pg (27.0-31.0); Mean Corpuscular Volume 81.1 fL (80.0-94.0); Mean Platelet Volume 10.8 fL (7.4-10.4); Platelet Count 216 10^3/uL (130-400); Red Blood Cell Count 3.18 10^6/uL (4.70-6.10); Red Cell Dist. Width 16.9 % (11.5-14.5); White Blood Cell Count 4.2 10^3/uL (4.8-10.8)
[2023-10-08 07:04] LABS: Glucose - Point of Care 124 mg/dl (70-99)
[2023-10-08 07:15] VITALS: BP 137/67
[2023-10-08 07:30] LABS: Blood Urea Nitrogen 7 mg/dl (9-20); Calcium 8.2 mg/dl (8.4-10.2); Carbon Dioxide 24 mmol/L (22-30); Chloride 107 mmol/L (98-107); Estimated Creatinine Clearance 97 ml/min; Glucose 101 mg/dl (70-99); Sodium 139 mmol/L (135-145); eGFR > 60.00
--- NOTE | 2023-10-08 08:19 | W.PN.HOSP.TC ---
Today's Communication/Plan
-
Breast biopsy. Oncology follow-up.
Assessment / Plan
Assessment / Plan
Physical exam:
General: Well Developed, Well Nourished and No Apparent Distress
HEENT: Normocephalic, Atraumatic and Moist Mucous Membranes
Respiratory: Clear to Auscultation; Negative Wheezes, Rales or Rhonchi
Cardiac: Regular Rhythm and S1/S2
GI: Soft, Nontender and Nondistended
Musculoskeletal: No Clubbing, No Cyanosis and No Edema
Neuro: Awake, Alert and Oriented
Psych: Calm
A/P:
Acute blood loss anemia due to GI bleed/ Iron def anemia:
Hemoglobin 8 today
IV PPI
IV iron
Status post blood transfusion
Holding anticoagulant, Eliquis.
Endoscopy and colonoscopy on 10/06--> colonoscopy poor prep and endoscopy showed some fungating mass.
Oncology consult appreciated.
Discussed with and daughter at bedside today on 10/07.
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
Oncology consult
CT chest abdomen pelvis done yesterday pending results.
Left breast mass:
Breast surgeon consulted
Plan for ultrasound-guided core biopsy during this hospital stay as this will affect all other cancer treatment
#Hyperlipidemia
-Statin
# Permanent A-fib
-EKG with atrial fibs, heart rate controlled
-Hold Eliquis
# Bilateral lower extremities edema
-Hold Lasix-->resume back once appropriate
# Type 2 diabetes
-Holding metformin-->resume back once appropriate
-Sliding scale
-Check blood sugar
-Carb controlled diet
# BPH
-Flomax continued
# Essential hypertension
-Blood pressure stable
-Telmisartan continued
DVT prophylaxis-SCD
CODE STATUS- Full code
Total time spent on today's encounter was 52 minutes which included time spent in counseling the patient/family regarding diagnosis and treatment plan as listed above, goals of care, and symptom management. More than 50% of time counseling
coordination and possible prognosis.
Anticipated Discharge: 24 - 48 hours
Subjective/Interval History
-
Date of Service: October 08, 2023
Patient denies chest pain or shortness of breath or abdominal pain.
Objective Data
-
Labs:
Laboratory Results
10/08/23
06:05
WBC 4.2 L
Hgb 8.0 L
Hct 25.8 L
Plt Count 216
Sodium 139
Potassium 4.0
Chloride 107
Carbon Dioxide 24
BUN 7 L
Creatinine 0.9
Glucose 101 H
Calcium 8.2 L
Vital Signs:
Vital Signs
Temp Pulse Resp BP Pulse Ox
98.2 F 65 17 137/67 95
10/08/23 07:15 10/08/23 07:15 10/08/23 07:15 10/08/23 07:15 10/08/23 07:15
I&O
10/07/23 10/08/23 10/09/23
06:59 06:59 06:59
Intake Total 1320 / 1320 670 / 670 120 / 120
Output Total 750 / 750 550 / 550
Balance 570 / 570 120 / 120 120 / 120
[2023-10-08] MEDS: NOVOLOG FLEXPEN-LOW RESISTANCE SC ×2 (09:00→12:27)
--- NOTE | 2023-10-08 10:11 | W.PN.ONC ---
Addendum entered and electronically signed by Eunice Gutiérrez MD 10/08/23 10:24:
Addendum:
Continue iron infusions, monitor CBC
Eliquis on hold secondary to GI bleeding. Will need to continually consider risks and benefits of resuming
Original Note:
Today's Communication / Plan
-
Reviewed CT scans, showing esophageal thickening and regional lymphadenopathy, but no distant mets. Left breast mass is also seen.
Await path from 10/06 EGD, most certainly malignant
Will need outpatient PET scan, port placement
Briefly discussed treatment for esophageal cancer, likely periop chemo w/ FLOT + surgery. If not a surgical candidate, would favor chemo/RT (CROSS regimen)
Breast biopsy to be arranged by Dr. Lan
Will have our office arrange outpt onc f/u after discharge
Impression
Impression
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
Left breast mass suspicious for cancer
50 pound weight loss
Iron deficiency anemia
Borderline B12 levels
History of CVA in association with atrial fibrillation
Plan
Plan
Reviewed CT scans, showing esophageal thickening and regional lymphadenopathy, but no distant mets. Left breast mass is also seen.
Await path from 10/06 EGD, most certainly malignant
Will need outpatient PET scan, port placement
Briefly discussed treatment for esophageal cancer, likely periop chemo w/ FLOT + surgery. If not a surgical candidate, would favor chemo/RT (CROSS regimen)
Breast biopsy to be arranged by Dr. Lan
Will have our office arrange outpt onc f/u after discharge
Subjective/Objective
Subjective/Objective
no new complaints, family at bedside
Vital Signs:
Vital Signs
Temp Pulse Resp BP Pulse Ox
98.2 F 65 17 137/67 95
10/08/23 07:15 10/08/23 07:15 10/08/23 07:15 10/08/23 07:15 10/08/23 07:15
Lab Results:
Laboratory Data
WBC 4.2 10^3/uL (4.8-10.8) L 10/08/23 06:05
Hgb 8.0 g/dL (13.0-18.0) L 10/08/23 06:05
Plt Count 216 10^3/uL (130-400) 10/08/23 06:05
PT 17.6 Sec (11.4-14.6) H 10/07/23 07:07
INR 1.46 10/07/23 07:07
eGFR > 60.00 10/08/23 06:05
[2023-10-08] MEDS: PROTONIX IV 40 MG IV ×2 (10:40→20:15)
[2023-10-08] MEDS: FOLVITE 1 MG PO (10:40)
[2023-10-08] MEDS: NSS (PRESERVATIVE FREE) 10 ML IV ×2 (10:41→20:14)
[2023-10-08 11:09] LABS: Glucose - Point of Care 137 mg/dl (70-99)
[2023-10-08 11:13] VITALS: BP 147/79
--- NOTE | 2023-10-08 12:03 | CM ---
Patient seen bedside with family, patient reports no needs to CM at this time. Per Oncology, continue iron infusions. CM will continue to be available to family, will follow for all discharge planning needs.
Plan; home no needs when medically stable.
[2023-10-08] MEDS: FERRLECIT 110 MG IV (14:37)
[2023-10-08 15:14] VITALS: BP 123/63
[2023-10-08 16:25] LABS: Glucose - Point of Care 161 mg/dl (70-99)
--- NOTE | 2023-10-08 17:50 | W.PN.UPDATE ---
Update Note
Progress Note Update
US-guided left breast biopsy performed today by Radiologist. Path pending. If discharged, will inform patient and Med Onc of results and receptors and make coordinated treatment plan.
[2023-10-08] MEDS: NOVOLOG FLEXPEN-LOW RESISTANCE 1 UNITS SC (18:49)
[2023-10-08 19:20] VITALS: BP 155/75
[2023-10-08 21:45] LABS: Glucose - Point of Care 221 mg/dl (70-99)
[2023-10-08] MEDS: FLOMAX 0.800000000000000044 MG PO (22:00)
[2023-10-08] MEDS: COZAAR 100 MG PO (22:03)
[2023-10-08] MEDS: LIPITOR 40 MG PO (22:03)
[2023-10-08] MEDS: BYSTOLIC 10 MG PO (22:03)
[2023-10-08 23:14] VITALS: BP 143/73
[2023-10-09] VITALS (7 sets, daily range): BP systolic 140–172; BP diastolic 67–86
[2023-10-09 07:37] LABS: Glucose - Point of Care 125 mg/dl (70-99)
[2023-10-09] MEDS: NOVOLOG FLEXPEN-LOW RESISTANCE SC ×2 (08:03→17:03)
[2023-10-09 08:10] LABS: Hematocrit 25.5 % (39.0-52.0); Hemoglobin 7.9 g/dL (13.0-18.0); Mean Corpuscular Hgb 24.5 pg (27.0-31.0); Mean Corpuscular Volume 79.2 fL (80.0-94.0); Mean Platelet Volume 10.3 fL (7.4-10.4); Platelet Count 209 10^3/uL (130-400); Red Blood Cell Count 3.22 10^6/uL (4.70-6.10); Red Cell Dist. Width 17.2 % (11.5-14.5); White Blood Cell Count 4.1 10^3/uL (4.8-10.8)
--- NOTE | 2023-10-09 08:15 | W.PN.HOSP.TC ---
Today's Communication/Plan
-
Restart anticoagulation. Waiting for biopsies.
Assessment / Plan
Assessment / Plan
Physical exam:
General: Well Developed, Well Nourished and No Apparent Distress
HEENT: Normocephalic, Atraumatic and Moist Mucous Membranes
Respiratory: Clear to Auscultation; Negative Wheezes, Rales or Rhonchi
Cardiac: Regular Rhythm and S1/S2
GI: Soft, Nontender and Nondistended
Musculoskeletal: No Clubbing, No Cyanosis and No Edema
Neuro: Awake, Alert and Oriented
Psych: Calm
A/P:
Acute blood loss anemia due to GI bleed/ Iron def anemia:
Hemoglobin 7.9 today
Discussed with hematology oncology today and they are okay to restart anticoagulation today.
IV PPI
IV iron
Status post blood transfusion
Resume anticoagulant, Eliquis.
Endoscopy and colonoscopy on 10/06--> colonoscopy poor prep and endoscopy showed some fungating mass.
Oncology consult appreciated.
Discussed with daughter prior.
Discussed with at bedside on 10/08.
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
Oncology consult
CT chest abdomen pelvis done yesterday pending results.
Left breast mass:
Breast surgeon consulted
Status post ultrasound-guided core biopsy during this hospital stay as this will affect all other cancer treatment
#Hyperlipidemia
-Statin
# Permanent A-fib
-EKG with atrial fibs, heart rate controlled
-Plan to resume Eliquis
# Bilateral lower extremities edema
-Hold Lasix-->resume back once appropriate hopefully by tomorrow
# Type 2 diabetes
-Holding metformin-->resume back once appropriate hopefully by tomorrow
-Sliding scale
-Check blood sugar
-Carb controlled diet
# BPH
-Flomax continued
# Essential hypertension
-Blood pressure stable
-Telmisartan continued
DVT prophylaxis-SCD
CODE STATUS- Full code
Anticipated Discharge: 24 - 48 hours
Subjective/Interval History
-
Date of Service: October 09, 2023
Patient denies any further bleeding. No chest pain or shortness of breath
Objective Data
-
Labs:
Laboratory Results
10/09/23
07:36
WBC Pending
Hgb Pending
Hct Pending
Plt Count Pending
Sodium Pending
Potassium Pending
Chloride Pending
Carbon Dioxide Pending
BUN Pending
Creatinine Pending
Glucose Pending
Calcium Pending
Vital Signs:
Vital Signs
Temp Pulse Resp BP Pulse Ox
98.2 F 74 20 158/78 95
10/09/23 07:30 10/09/23 07:30 10/09/23 07:30 10/09/23 07:30 10/09/23 07:30
I&O
10/08/23 10/09/23 10/10/23
06:59 06:59 06:59
Intake Total 670 / 670 940 / 940
Output Total 550 / 550 450 / 450
Balance 120 / 120 490 / 490
[2023-10-09 08:38] LABS: Blood Urea Nitrogen 7 mg/dl (9-20); Calcium 8.4 mg/dl (8.4-10.2); Carbon Dioxide 24 mmol/L (22-30); Chloride 108 mmol/L (98-107); Estimated Creatinine Clearance 97 ml/min; Glucose 106 mg/dl (70-99); Potassium 3.8 mmol/L (3.5-5.1); Sodium 137 mmol/L (135-145); eGFR > 60.00
[2023-10-09] MEDS: FOLVITE 1 MG PO (08:39)
[2023-10-09] MEDS: PROTONIX IV 40 MG IV ×2 (08:40→20:09)
[2023-10-09] MEDS: NSS (PRESERVATIVE FREE) 10 ML IV ×2 (08:40→20:09)
[2023-10-09] MEDS: ELIQUIS 5 MG PO ×2 (10:38→20:09)
[2023-10-09 12:10] LABS: Glucose - Point of Care 161 mg/dl (70-99)
[2023-10-09] MEDS: NOVOLOG FLEXPEN-LOW RESISTANCE 1 UNITS SC (13:01)
[2023-10-09] MEDS: FERRLECIT 110 MG IV (14:08)
--- NOTE | 2023-10-09 14:24 | W.PN.ONC2 ---
Today's Communication / Plan
-
Patient updated regarding updated plan.
Okay to resume Eliquis now that Bx completed.
Impression
Impression
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
Left breast mass suspicious for cancer, s/p Breast Bx 10/07
50 pound weight loss
Iron deficiency anemia
Borderline B12 levels
History of CVA in association with atrial fibrillation
Plan
Plan
Reviewed CT scans, showing esophageal thickening and regional lymphadenopathy, but no distant mets. Left breast mass is also seen.
Await path from 10/06 EGD, most certainly malignant
Will need outpatient PET scan, port placement
Briefly discussed treatment for esophageal cancer, likely periop chemo w/ FLOT + surgery. If not a surgical candidate, would favor chemo/RT (CROSS regimen)
Breast biopsy also done 10/07 and path pending.
Will have our office arrange outpt onc f/u after discharge.
Subjective/Objective
Chief Complaint
ACS Heme Onc
Subjective
Lots of Tx questions. Said we need to await Bx path results.
Vital Signs:
Vital Signs
Temp Pulse Resp BP Pulse Ox
97.8 F 58 17 140/67 95
10/09/23 11:27 10/09/23 11:27 10/09/23 11:27 10/09/23 11:27 10/09/23 11:27
Lab Results:
Laboratory Data
WBC 4.1 10^3/uL (4.8-10.8) L 10/09/23 07:36
Hgb 7.9 g/dL (13.0-18.0) L 10/09/23 07:36
Plt Count 209 10^3/uL (130-400) 10/09/23 07:36
PT 17.6 Sec (11.4-14.6) H 10/07/23 07:07
INR 1.46 10/07/23 07:07
eGFR > 60.00 10/09/23 07:36
Physical Exam
Cardiology: S1 and S2
Pulmonary: Clear
GI: Soft
[2023-10-09 16:55] LABS: Glucose - Point of Care 147 mg/dl (70-99)
[2023-10-09 21:08] LABS: Glucose - Point of Care 202 mg/dl (70-99)
[2023-10-09] MEDS: BYSTOLIC PO (23:01)
[2023-10-09] MEDS: COZAAR 100 MG PO (23:26)
[2023-10-09] MEDS: LIPITOR 40 MG PO (23:26)
[2023-10-09] MEDS: FLOMAX 0.800000000000000044 MG PO (23:26)
[2023-10-10 03:19] VITALS: BP 149/83
[2023-10-10 07:00] VITALS: BP 148/72
[2023-10-10 07:39] LABS: Hematocrit 26.2 % (39.0-52.0); Hemoglobin 8.2 g/dL (13.0-18.0); Mean Corp Hgb Conc. 31.3 g/dL (33.0-37.0); Mean Corpuscular Hgb 25.3 pg (27.0-31.0); Mean Corpuscular Volume 80.9 fL (80.0-94.0); Mean Platelet Volume 10.4 fL (7.4-10.4); Platelet Count 197 10^3/uL (130-400); Red Blood Cell Count 3.24 10^6/uL (4.70-6.10); Red Cell Dist. Width 17.2 % (11.5-14.5); White Blood Cell Count 4.4 10^3/uL (4.8-10.8)
[2023-10-10 08:02] LABS: Blood Urea Nitrogen 7 mg/dl (9-20); Calcium 8.5 mg/dl (8.4-10.2); Carbon Dioxide 24 mmol/L (22-30); Chloride 106 mmol/L (98-107); Estimated Creatinine Clearance 97 ml/min; Glucose 110 mg/dl (70-99); Potassium 3.8 mmol/L (3.5-5.1); Sodium 137 mmol/L (135-145); eGFR > 60.00
[2023-10-10 08:07] LABS: Glucose - Point of Care 134 mg/dl (70-99)
--- NOTE | 2023-10-10 08:57 | W.PN.HOSP.TC ---
Today's Communication/Plan
-
Discharge planning today.
Assessment / Plan
Assessment / Plan
Physical exam:
General: Well Developed, Well Nourished and No Apparent Distress
HEENT: Normocephalic, Atraumatic and Moist Mucous Membranes
Respiratory: Clear to Auscultation; Negative Wheezes, Rales or Rhonchi
Cardiac: Regular Rhythm and S1/S2
GI: Soft, Nontender and Nondistended
Musculoskeletal: No Clubbing, No Cyanosis and No Edema
Neuro: Awake, Alert and Oriented
Psych: Calm
A/P:
Acute blood loss anemia due to GI bleed/ Iron def anemia:
Hemoglobin 8.2 today
Discussed with hematology oncology on 10/08 and they are okay to restart anticoagulation. Tolerating it well.
IV PPI--> switch to oral once a day
IV iron
Status post blood transfusion
Resume anticoagulant, Eliquis.
Endoscopy and colonoscopy on 10/06--> colonoscopy poor prep and endoscopy showed some fungating mass.
Oncology consult appreciated.
Discussed with daughter prior.
Discussed with at bedside
PT OT eval for d/c dispo
Esophageal mass, likely malignant:
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
Oncology consult
CT chest abdomen pelvis done reviewed
Left breast mass:
Biopsy confirms ER positive invasive carcinoma
Breast surgeon consulted
Status post ultrasound-guided core biopsy during this hospital stay as this will affect all other cancer treatment
#Hyperlipidemia
-Statin
# Permanent A-fib
-EKG with atrial fibs, heart rate controlled
-Plan to resume Eliquis
# Bilateral lower extremities edema
-Hold Lasix-->resume back once appropriate hopefully by tomorrow
# Type 2 diabetes
-Can resume metformin today
-Sliding scale
-Check blood sugar
-Carb controlled diet
# BPH
-Flomax continued
# Essential hypertension
-Blood pressure stable
-Telmisartan continued
DVT prophylaxis-SCD
CODE STATUS- Full code
Anticipated Discharge: Today
Subjective/Interval History
-
Date of Service: October 10, 2023
No new complaints.
Objective Data
-
Labs:
Laboratory Results
10/10/23
07:20
WBC 4.4 L
Hgb 8.2 L
Hct 26.2 L
Plt Count 197
Sodium 137
Potassium 3.8
Chloride 106
Carbon Dioxide 24
BUN 7 L
Creatinine 0.9
Glucose 110 H
Calcium 8.5
Vital Signs:
Vital Signs
Temp Pulse Resp BP Pulse Ox
97.9 F 64 16 148/72 96
10/10/23 07:00 10/10/23 07:00 10/10/23 07:00 10/10/23 07:00 10/10/23 07:00
I&O
10/09/23 10/10/23 10/11/23
06:59 06:59 06:59
Intake Total 940 / 940 720 / 720
Output Total 450 / 450 1450 / 1675 225 / 225
Balance 490 / 490 -730 / -955 -225 / -225
--- NOTE | 2023-10-10 09:28 | W.PN.ONC ---
Addendum entered and electronically signed by Ankit Linares DO 10/10/23 09:50:
Pathology is not signet ring but poorly differentiated.
Original Note:
Today's Communication / Plan
-
Pathology confirms signet ring adenocarcinoma may suggest gastric primary ascending into the esophagus
Will need outpatient PET scan, port placement
Neoadjuvant FLOT followed by surgery
Breast biopsy confirms ER positive invasive carcinoma initiate temporizing endocrine therapy following discharge
Return to the office [facility]
Impression
Impression
Apparent carcinoma GE junction, s/p EGD/biopsy confirmed adenocarcinoma signet ring
Left breast mass suspicious IDC ER/AR positive HER2 negative
50 pound weight loss
Iron deficiency anemia
Borderline B12 levels
History of CVA in association with atrial fibrillation
Subjective/Objective
Subjective/Objective
Patient sitting in chair. Comfortable without new complaints.
Vital Signs:
Vital Signs
Temp Pulse Resp BP Pulse Ox
97.9 F 64 16 148/72 96
10/10/23 07:00 10/10/23 07:00 10/10/23 07:00 10/10/23 07:00 10/10/23 07:00
Physical Exam
Cardiology: Regular
Pulmonary: Clear
GI: Soft
Lab Results:
Laboratory Data
WBC 4.4 10^3/uL (4.8-10.8) L 10/10/23 07:20
Hgb 8.2 g/dL (13.0-18.0) L 10/10/23 07:20
Plt Count 197 10^3/uL (130-400) 10/10/23 07:20
PT 17.6 Sec (11.4-14.6) H 10/07/23 07:07
INR 1.46 10/07/23 07:07
eGFR > 60.00 10/10/23 07:20
[2023-10-10] MEDS: NOVOLOG FLEXPEN-LOW RESISTANCE SC (09:33)
[2023-10-10] MEDS: PROTONIX IV 40 MG IV (09:39)
[2023-10-10] MEDS: FOLVITE 1 MG PO (09:39)
[2023-10-10] MEDS: NSS (PRESERVATIVE FREE) 10 ML IV (09:39)
[2023-10-10] MEDS: ELIQUIS 5 MG PO (09:39)
[2023-10-10] MEDS: FLUSH (NSS) 2 FLUSH IV (09:43)
[2023-10-10 11:00] VITALS: BP 133/68
[2023-10-10 11:05] VITALS: BP 146/71; PULSE 54; O2SAT 99
[2023-10-10 11:14] VITALS: BP 146/71; PULSE 65; O2SAT 98
--- NOTE | 2023-10-10 11:35 | W.PN.UPDATE ---
Update Note
Progress Note Update
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 Discussed with Med Onc. This can be temporized with endocrine therapy administered by Med Onc. Esophageal treatment would take precedent. Path pending from EGD. My
contact info provided to patient and his for outpatient follow-up. Will also refer for Genetic Counseling as an outpatient.
[2023-10-10 11:52] LABS: Glucose - Point of Care 159 mg/dl (70-99)
--- NOTE | 2023-10-10 12:09 | VATNOTE ---
ON VAT rounds noticed right AC cord measuring 2x5 cm from an old IV site. Cool compress applied. Md made aware. Will monitor closely.
[2023-10-10] MEDS: NOVOLOG FLEXPEN-LOW RESISTANCE 1 UNITS SC (13:37)
--- NOTE | 2023-10-10 14:38 | PTCARENOTE ---
Patient with middle aspect of RUE treated with alternating cool and warm compresses for phlebitis as per VAC RN.
[2023-10-10 15:15] VITALS: BP 165/94
--- NOTE | 2023-10-10 15:39 | W.DCSUMMARY ---
Discharge Summary
Discharge Data
Date of Admission: 10/03/23
Date of Discharge: 10/10/23
-
Pending Results: No
Hospital Course
Patient is 72 years old male with history of A-fib, CVA, CHF, hypertension, diabetes mellitus, came into the hospital with anemia. Patient had some cough and bleeding but stopped. He also was noted to be heme stool positive. GI was consulted.
Anticoagulation was on hold. GI did an upper endoscopy and colonoscopy after Eliquis washout. Her colonoscopy was not well-prepped. Endoscopy showed esophageal mass and biopsies were taken. Patient also found to have a left breast mass and
breast surgeon was consulted who took a biopsy of the left breast mass. Oncology was okay to restart anticoagulation. He did well rest of the hospital stay and his hemoglobin remained stable. Patient also had mild thrombophlebitis on right upper
extremity from IV site and instructed to continue local care but if it does gets any worse he understands what to look for to come back to the hospital or reach out to his physician. Biopsies came back, the one from the GI tract with signet ring
adenocarcinoma suggesting gastric primary ascending to the esophagus and the one from the breast came back ER positive invasive carcinoma. Oncology will follow-up as outpatient with outpatient PET scan and port placement and likely neoadjuvant
chemotherapy with FLOT followed by surgery and initiated temporizing endocrine therapy for breast malignancy as well. PT OT evaluated patient and felt he can be home with home health. manager ob consulted for such. Otherwise, patient
hemodynamically stable and afebrile. Patient will be discharged in relatively stable condition today with close follow-up with oncology.
Discharge duration: 35 minutes
Discharge Plan
-
Patient Disposition: Home with Home Care
Discharge Diagnosis/Procedures: Acute gastrointestinal bleed. Esophageal mass due to signet ring adenocarcinoma poorly differentiated suggesting gastric primary ascending into the esophagus. Breast mass due to ER positive invasive carcinoma. Iron
deficiency anemia. B12 deficiency. History of permanent atrial fibrillation. History of stroke. Hypertension. History of diabetes mellitus type 2.
Diet: Low Cholesterol, Low Sodium and Diabetic, Carb Controlled
Activity: As tolerated
Driving Restrictions: As prior to admission
Blood Work: Please PCP to order CBC, BMP within 1 week
Specialty Instructions: Weigh Daily- Call MD for wt gain/loss 3 lbs overnight/5 lbs in 1 week
Referrals:
Jayant Granda MD [Active] - in one to two months
Meliton Aburto MD [Active] -
Skip Suh MD [Active] - in one to two weeks
Ayesha Henning MD [Family Provider] - in less than 1 week
Prescriptions:
New
pantoprazole [Protonix] 40 mg tablet,delayed release (DR/EC)
40 mg PO DAILY Qty: 30 0RF
mecobalamin (vitamin B12) [B12 Active] 1,000 mcg tablet,chewable
1,000 mcg PO DAILY Qty: 30 0RF
Continued
multivitamin Tablet
1 tab PO DAILY
telmisartan 80 mg tablet
80 mg PO HS
furosemide 20 mg Tablet
20 mg PO DAILY PRN (Reason: swelling)
nebivolol 10 mg tablet
10 mg PO HS
atorvastatin 40 MG tablet
40 mg PO HS
metformin 500 MG tablet extended release 24 hr
1,000 mg PO BID
ferrous sulfate [Iron (ferrous sulfate)] 325 mg (65 mg iron) Tablet
325 mg PO DAILY
tadalafil 20 mg tablet
20 mg PO DAILY PRN (Reason: ed)
tamsulosin 0.4 MG capsule
0.8 mg PO HS Qty: 180 0RF
folic acid 1 MG tablet
1 mg PO DAILY Qty: 90 0RF
Eliquis 5 MG tablet
5 mg PO BID Qty: 180 0RF
Discharge Orders:
Discharge Patient (As Directed); Ordered 10/10/23
Ordered By: Taiwo Vazquez
Discharge Date and Time
Discharge Date/Time: 10/10/23 18:44
Print Language: NIGERIEN
--- NOTE | 2023-10-10 16:11 | CM ---
Patient seen bedside with , offered VN to patient. Patient and declining at this time. IMM reviewed, signed, placed in chart. CM will continue to follow for discharge planning needs.
Plan; home no needs.
== END 2023-10-10 18:44 | disposition home or self-care (01) | DRG 598 ==
LOC: 4 WEST ACU 21:01
PROVIDERS: Hospitalist; Nurse Practitioner; Physician Assistant; Radiology Diagnostic Radiology; Registered Nurse; ADMITTING PHYSICIAN Hospitalist; ATTENDING PHYSICIAN Hospitalist; CONSULT PHYSICIAN Internal Medicine Gastroenterology; CONSULT PHYSICIAN Internal Medicine Hematology & Oncology; CONSULT PHYSICIAN Surgery; EMERGENCY PHYSICIAN Emergency Medicine; FAMILY PHYSICIAN Family Medicine
PROC: 30233N1 Transfusion of Nonautologous Red Blood Cells into Peripheral Vein, Percutaneous Approach (ICD-10-PCS; 2023-10-03)
PROC: 0DJD8ZZ Inspection of Lower Intestinal Tract, Via Natural or Artificial Opening Endoscopic (ICD-10-PCS; 2023-10-07)
PROC: 0DB38ZX Excision of Lower Esophagus, Via Natural or Artificial Opening Endoscopic, Diagnostic (ICD-10-PCS; 2023-10-07)
PROC: 0HBU3ZX Excision of Left Breast, Percutaneous Approach, Diagnostic (ICD-10-PCS; 2023-10-08)
DX: C50.922 Malignant neoplasm of unspecified site of left male breast (principal); C15.9 Malignant neoplasm of esophagus, unspecified; D62 Acute posthemorrhagic anemia; I50.32 Chronic diastolic (congestive) heart failure; K92.1 Melena; I48.21 Permanent atrial fibrillation; Q43.8 Other specified congenital malformations of intestine; R79.89 Other specified abnormal findings of blood chemistry; E11.649 Type 2 diabetes mellitus with hypoglycemia without coma; I11.0 Hypertensive heart disease with heart failure; N63.20 Unspecified lump in the left breast, unspecified quadrant; N64.52 Nipple discharge; E78.5 Hyperlipidemia, unspecified; F17.200 Nicotine dependence, unspecified, uncomplicated; D50.9 Iron deficiency anemia, unspecified; R63.4 Abnormal weight loss; G25.0 Essential tremor; R68.81 Early satiety; N40.0 Benign prostatic hyperplasia without lower urinary tract symptoms; I27.20 Pulmonary hypertension, unspecified; Z96.643 Presence of artificial hip joint, bilateral; Z86.73 Personal history of transient ischemic attack (TIA), and cerebral infarction without residual deficits; Z79.84 Long term (current) use of oral hypoglycemic drugs; Z79.01 Long term (current) use of anticoagulants; Z80.3 Family history of malignant neoplasm of breast; Z80.1 Family history of malignant neoplasm of trachea, bronchus and lung; Z82.5 Family history of asthma and other chronic lower respiratory diseases; Z82.3 Family history of stroke; Z17.0 Estrogen receptor positive status [ER+]
CPT/HCPCS: 88305; 19083; 71260; 74177; 76642; 77066; 80048; 80053; 81003; 82962; 83036; 83921; 84439; 84443; 85014; 85018; 85025; 85027; 85610; 86850; 86900; 86901; 86920; 88341; 88342; 88360; 93005; 96374; 97116; 97166; 99285; J2916; P9016; Q9967

== ENCOUNTER → 2023-10-21 09:58 | Outpatient (REF) | payer MEDICARE, OTHER, SELFPAY ==
[2023-10-21 10:43] VITALS: BP 119/75; BP_SYST 59
[2023-10-21 10:53] LABS: Glucose - Point of Care 103 mg/dl (70-99)
[2023-10-21] MEDS: ANCEF 10 IV (11:06)
[2023-10-21 12:15] VITALS: BP 142/80
[2023-10-21 12:20] VITALS: BP 137/87; BP_SYST 65
[2023-10-21 12:20] LABS: Glucose - Point of Care 94 mg/dl (70-99)
[2023-10-21 12:25] VITALS: BP 150/62
== END ==
LOC: RADI 09:58
PROVIDERS: ATTENDING PHYSICIAN Internal Medicine Hematology & Oncology; FAMILY PHYSICIAN Family Medicine
DX: C15.9 Malignant neoplasm of esophagus, unspecified (principal)
CPT/HCPCS: 36561; 76937; 77001; 82962; 99152; 99153; C1788

== ENCOUNTER → 2023-11-11 12:17 | Outpatient (REF) | payer MEDICARE, OTHER, SELFPAY ==
[2023-11-11 12:35] VITALS: BP 150/79; BP_SYST 59
== END ==
LOC: RADI 12:17
PROVIDERS: ATTENDING PHYSICIAN Internal Medicine Hematology & Oncology
DX: C77.0 Secondary and unspecified malignant neoplasm of lymph nodes of head, face and neck (principal); C15.9 Malignant neoplasm of esophagus, unspecified; Z85.3 Personal history of malignant neoplasm of breast
CPT/HCPCS: 88305; 38505; 76942; 88333; 88341; 88342; 88360

== ENCOUNTER → 2023-11-21 14:22 | Outpatient (REF) | payer MEDICARE, OTHER, SELFPAY | LOC: RAD 14:22 | PROVIDERS: ATTENDING PHYSICIAN Nurse Practitioner Family; FAMILY PHYSICIAN Family Medicine | DX: C50.022 Malignant neoplasm of nipple and areola, left male breast (principal); C16.0 Malignant neoplasm of cardia | CPT/HCPCS: 73130 ==

== ENCOUNTER → 2023-11-25 15:00 | Outpatient (REF) | payer MEDICARE, OTHER, SELFPAY | LOC: RAD 15:00 | PROVIDERS: ATTENDING PHYSICIAN Nurse Practitioner Family; FAMILY PHYSICIAN Family Medicine | DX: C16.0 Malignant neoplasm of cardia (principal); C50.022 Malignant neoplasm of nipple and areola, left male breast; M25.50 Pain in unspecified joint | CPT/HCPCS: 73565 ==

== ENCOUNTER → 2024-05-12 08:16 | Outpatient (REF) | payer MEDICARE, OTHER, SELFPAY | LOC: RAD 08:16 | PROVIDERS: ATTENDING PHYSICIAN Internal Medicine Hematology & Oncology; FAMILY PHYSICIAN Family Medicine | DX: C16.0 Malignant neoplasm of cardia (principal); C50.022 Malignant neoplasm of nipple and areola, left male breast; M25.50 Pain in unspecified joint; Z51.12 Encounter for antineoplastic immunotherapy; E03.2 Hypothyroidism due to medicaments and other exogenous substances; K59.03 Drug induced constipation | CPT/HCPCS: 71260; 74177; Q9967 ==

== ENCOUNTER 2024-06-22 09:31 | Emergency (ER) | payer MEDICARE, OTHER, SELFPAY ==
[2024-06-22] VITALS (7 sets, daily range): BP systolic 139–181; BP diastolic 67–100; PULSE 70–75; BMI 28.0
[2024-06-22 10:07] LABS: ALT (SGPT) 22 U/L (0-50); AST (SGOT) 27 U/L (17-59); Albumin 3.5 g/dl (3.5-5.0); Alkaline Phosphatase 67 U/L (38-126); Blood Urea Nitrogen 13 mg/dl (9-20); Calcium 8.6 mg/dl (8.4-10.2); Carbon Dioxide 28 mmol/L (22-30); Chloride 104 mmol/L (98-107); Estimated Creatinine Clearance 82 ml/min; Glucose 142 mg/dl (70-99); Potassium 3.7 mmol/L (3.5-5.1); Sodium 139 mmol/L (135-145); Total Bilirubin 1.5 mg/dl (0.2-1.3); eGFR > 60.00
[2024-06-22 10:18] LABS: Troponin I < 0.012 ng/ml
--- NOTE | 2024-06-22 10:25 | ED.GENMED ---
History of Present Illness
General
Chief Complaint: Dizziness
Source: patient and family
Exam Limitations: none
Time Seen by Provider: 06/22/24 10:02
Nursing documentation reviewed up to this point in time: agreed with
History of Present Illness
History of Present Illness:
73-year-old male with a history of stage IV esophageal cancer receiving chemo every 2 weeks, A-fib on Eliquis, and insulin-dependent diabetes presents for syncopal event today after getting out of the shower. Patient says he had a hot shower and
was feeling well, he got out and felt lightheaded and then tried to make it to the toilet and ended up on the ground. Patient says he is not quite sure how he got there. The family heard a thump and came to him and he was making a moaning sound
not really totally responsive but then came to. They called paramedics and by the time paramedics got there he was awake and alert. His heart rate was in the 50s but he was not found to be hypotensive. He says he has been drinking his normal
liquids and maybe not eating as much but that is typical for him he has not had any flu or cold symptoms, nausea vomiting diarrhea, urinary symptoms, he denies any headache
, Neck pain. His upper back pain is slightly worse with movement but mild. He is not having any pelvic pain, belly pain etc.
Past History
Past History
ED Past Medical History: Arrthythmia, HTN and NIDDM
ED Past Surgical History: Orthopedic
Social History
Tobacco: Non-smoker
Alcohol: None
Review of Systems
Review of Systems
Allergies reviewed?: Yes
All Other Systems: Not applicable
Phy Exam
Physical Exam
Physical Exam:
GENERAL: Alert , in no apparent distress
HEAD: NCAT
NECK: no midline tenderness, active ROM intact, no paraspinal muscle tenderness;
EYE: pupils equal and reactive, EOMs intact.
ENT: o/p clr, mmm. no hemotympanum
CARDIAC: Regular rate and rhythm, no edema
LUNGS: Clear breath sounds bilaterally, no acute respiratory distress, no wheezes/rales/rhonchi
ABDOMEN: Soft, without focal tenderness, no r/g, no cvat
back: nontender, no signs of trauma, full rom
NEUROLOGICAL: Alert and oriented, no focal neuro deficits, CN intact, 5/5 strength, sensation intact
SKIN: Warm and dry,
MUSCULOSKELETAL: No edema, well perfused.
PSYCH: Normal and appropriate interaction.
Course
Orders/Labs/Results
Orders:
Orders
06/22/24 09:35
Electrocardiogram (*1) Urgent
Reason for Study: Other
Other Reason for Exam: Possible Stroke
Cardiac Monitoring- Treatment ONCE
EKG- Treatment ONCE
IV Insert/Care/Rem.- Treatment PRN
Vital Signs As Directed
Frequency: Other
Weight As Directed
Frequency: Once
Comment: ZERO STRETCHER SCALE FOR ACCURATE WEIGHT
O2 Therapy [RESP] Urgent
Titrate/Wean O2 to maintain O2 sat greater than (%): 93
Special Instructions: MAINTAIN CONTINUOUS O2 SATS > OR = 93%
06/22/24 09:43
Complete Blood Count/With Diff Urgent
Comprehensive Metabolic Panel Urgent
Troponin I Urgent
06/22/24 10:19
CT Cervical Spine W/o Iv Contr Urgent
Comment:
Reason For Exam: syncope, fall
Orthostatic VS- Treatment ONCE
06/22/24 10:20
CT Head W/o Iv Contrast Urgent
Comment:
Reason For Exam: syncope on eliquis
06/22/24 10:28
CT Chest/abd/pelvis Angio W/wo Urgent
Comment:
Reason For Exam: syncope, on eliquis
Abnormal Lab Results
06/22/24
09:43
WBC 2.4 L* 10^3/uL
(4.8-10.8)
RBC 3.44 L 10^6/uL
(4.70-6.10)
Hgb 10.7 L g/dL
(13.0-18.0)
Hct 31.4 L %
(39.0-52.0)
MCH 31.1 H pg
(27.0-31.0)
RDW 17.3 H %
(11.5-14.5)
Plt Count 78 L 10^3/uL
(130-400)
Absolute Lymphs (auto) 0.5 L 10^3/uL
(1.2-3.4)
Immature Gran % 0.8 H %
(0-0.5)
Glucose 142 H mg/dl
(70-99)
Total Bilirubin 1.5 H mg/dl
(0.2-1.3)
Total Protein 6.0 L g/dl
(6.3-8.2)
06/22/24 09:43
06/22/24 09:43
Vital Signs
Initial and Last Documented VS:
Initial Vital Signs
Temp Pulse Resp BP Pulse Ox
36.7 C 59 14 180/69 97
06/22/24 09:34 06/22/24 09:34 06/22/24 09:34 06/22/24 09:34 06/22/24 09:34
Last Documented Vital Signs
Temp Pulse Resp BP Pulse Ox
36.7 C 65 12 142/67 96
06/22/24 09:34 06/22/24 10:45 06/22/24 10:45 06/22/24 12:09 06/22/24 12:09
MDM/Problems Addressed
Differential Diagnosis Includes:
h/o NIDDM, htn, sroke, esohagela cancer on chemo
MDM/Problems Addressed:
73 y/o M with h/o esophageal cancer on chemo
here with syncope
says he was getting out of the shower And suddenly felt lightheaded, he passed out and was found by family. He is now awake and alert with minimal complaints of upper back pain which is worse with movement. He has no neurologic deficits. He feels
no headache. He has not had any infectious symptoms. On exam he has no midline spinal tenderness and a normal neurologic exam, no head hematomas. His EKG is junctional rhythm however on the monitor it looks like a flutter which is rate controlled
which patient has a history of. His labs show a leukopenia of 2.4 which is a fluctuating problem for him because of his chemo and not out of the ordinary after I discussed with Dr. August who is from oncology and knows him well. Patient's
neutrophil count is normal. His labs are otherwise unremarkable, his estrella scan was negative. Patient feels well.
likely vasovagal episode
seen by ed attending who agreed
d/c home
*Critical Care Note
Total Time (30-74mins, 75-104mins- exclusive of procedures): Not Applicable
ED Attending Note
-
Portions of this chart may have been created with voice recognition software.� Occasional wrong word or��sound alike� substitutions may have occurred due to the inherent limitations of voice recognition software.
Discharge Plan
Departure
Patient Disposition: Home (Routine Discharge)
Date of Disposition: 06/22/24
Time of Disposition: 13:01
Patient with high blood pressure during this ER visit?: Yes
Condition: Fair
Discharge Problem:
Syncope, vasovagal
Instructions: Syncope (fainting) - Discharge instructions
Prescriptions:
No Action
multivitamin Tablet
1 tab PO DAILY
telmisartan 80 mg tablet
80 mg PO HS
nebivolol 10 mg tablet
10 mg PO HS
atorvastatin 40 MG tablet
40 mg PO HS
metformin 500 MG tablet extended release 24 hr
500 mg PO BID
tamoxifen 20 mg Tablet
20 mg PO DAILY
polyethylene glycol 3350 [Miralax] 17 gram Powder In Packet
17 g PO DAILYPRN PRN (Reason: CONSTIPATION)
cetirizine [Zyrtec] 10 mg Tablet
10 mg PO DAILY
tamsulosin 0.4 MG capsule
0.8 mg PO HS Qty: 180 0RF
folic acid 1 MG tablet
1 mg PO DAILY Qty: 90 0RF
Eliquis 5 MG tablet
5 mg PO BID Qty: 180 0RF
Referrals:
Tenthoff,Ayesha Esquivel MD [Family Provider] - Follow up in 2-3 days
Activity Restrictions/Additional Instructions:
you Probably had a vasovagal episode from the hot water in the shower causing you to pass out. Your workup here was very reassuring. Please stay hydrated. Follow-up with your oncologist. I made Dr. August aware of your white blood cell count
which is something that you had before, you are not neutropenic. Return for any repeated passing out episodes, chest pain, weakness etc.
Interventions
Interventions:
*Risk Screen - Suicide Last Done: 06/22/24 09:34
*General Assessment Last Done: 06/22/24 09:34
*Neglect/Abuse Screening Last Done: 06/22/24 09:34
ED- Fall Risk Assessment Last Done: 06/22/24 11:09
*ED COVID-19 Vaccine History Last Done: 06/22/24 09:34
*Nursing Disposition Last Done: 06/22/24 13:46
ED- Neurological Assessment Last Done: 06/22/24 09:34
ED- Cardiac Assessment Last Done: 06/22/24 11:09
Discharge Date and Time
Discharge Date/Time: 06/22/24 13:48
Print Language: KINYARWANDA
[2024-06-22 10:28] LABS: % Basophils 0.8 % (0-2); % Eosinophils 5.5 % (0-6); % Immature Granulocytes 0.8 % (0-0.5); % Monocytes 4.6 % (1.7-9.3); % Neutrophils 67.3 % (42.2-75.2); Absolute Eosinophils 0.1 10^3/uL (0-0.7); Absolute Lymphocytes 0.5 10^3/uL (1.2-3.4); Absolute Monocytes 0.1 10^3/uL (0.1-0.6); Absolute Neutrophils 1.6 10^3/uL (1.4-6.5); Hematocrit 31.4 % (39.0-52.0); Hemoglobin 10.7 g/dL (13.0-18.0); Mean Corp Hgb Conc. 34.1 g/dL (33.0-37.0); Mean Corpuscular Hgb 31.1 pg (27.0-31.0); Mean Corpuscular Volume 91.3 fL (80.0-94.0); Mean Platelet Volume 9.6 fL (7.4-10.4); Nucleated Red Blood Cells % 0 % (-); Platelet Count 78 10^3/uL (130-400); Red Blood Cell Count 3.44 10^6/uL (4.70-6.10); Red Cell Dist. Width 17.3 % (11.5-14.5); White Blood Cell Count 2.4 10^3/uL (4.8-10.8)
== END 2024-06-22 13:48 | disposition home or self-care (01) ==
LOC: EMR 09:31
PROVIDERS: EMERGENCY PHYSICIAN Emergency Medicine; FAMILY PHYSICIAN Family Medicine
DX: R55 Syncope and collapse (principal); I48.91 Unspecified atrial fibrillation; Z79.01 Long term (current) use of anticoagulants; E11.9 Type 2 diabetes mellitus without complications
CPT/HCPCS: 99285; 70450; 71275; 72125; 74174; 80053; 84484; 85025; 93005; Q9967

== ENCOUNTER → 2024-07-07 12:14 | Outpatient (REF) | payer MEDICARE, OTHER, SELFPAY | LOC: RAD 12:14 | PROVIDERS: ATTENDING PHYSICIAN Family Medicine | DX: M54.6 Pain in thoracic spine (principal); W19.XXXD Unspecified fall, subsequent encounter | CPT/HCPCS: 72070 ==

== ENCOUNTER → 2024-07-27 13:11 | Outpatient (REF) | payer MEDICARE, OTHER, SELFPAY ==
[2024-07-27 13:55] LABS: % Basophils 0.6 % (0-2); % Eosinophils 8.1 % (0-6); % Immature Granulocytes 0.2 % (0-0.5); % Lymphocytes 15.1 % (20.5-51.1); % Monocytes 5.8 % (1.7-9.3); % Neutrophils 70.2 % (42.2-75.2); Absolute Eosinophils 0.4 10^3/uL (0-0.7); Absolute Lymphocytes 0.7 10^3/uL (1.2-3.4); Absolute Monocytes 0.3 10^3/uL (0.1-0.6); Absolute Neutrophils 3.4 10^3/uL (1.4-6.5); Hematocrit 30.5 % (39.0-52.0); Hemoglobin 9.8 g/dL (13.0-18.0); Mean Corp Hgb Conc. 32.1 g/dL (33.0-37.0); Mean Corpuscular Hgb 31.2 pg (27.0-31.0); Mean Corpuscular Volume 97.1 fL (80.0-94.0); Mean Platelet Volume 10.4 fL (7.4-10.4); Nucleated Red Blood Cells % 0 % (-); Platelet Count 112 10^3/uL (130-400); Red Blood Cell Count 3.14 10^6/uL (4.70-6.10); Red Cell Dist. Width 17.2 % (11.5-14.5); White Blood Cell Count 4.8 10^3/uL (4.8-10.8)
[2024-07-27 14:40] LABS: ALT (SGPT) 15 U/L (0-50); AST (SGOT) 19 U/L (17-59); Albumin 3.3 g/dl (3.5-5.0); Alkaline Phosphatase 68 U/L (38-126); Blood Urea Nitrogen 15 mg/dl (9-20); Calcium 8.8 mg/dl (8.4-10.2); Carbon Dioxide 31 mmol/L (22-30); Chloride 106 mmol/L (98-107); Glucose 136 mg/dl (70-99); Potassium 3.3 mmol/L (3.5-5.1); Sodium 145 mmol/L (135-145); Total Protein 5.7 g/dl (6.3-8.2); eGFR > 60.00
== END ==
LOC: REG 13:11
PROVIDERS: ATTENDING PHYSICIAN Internal Medicine Hematology & Oncology; FAMILY PHYSICIAN Family Medicine
DX: C16.0 Malignant neoplasm of cardia (principal); C50.022 Malignant neoplasm of nipple and areola, left male breast; M25.50 Pain in unspecified joint; Z51.12 Encounter for antineoplastic immunotherapy; E03.2 Hypothyroidism due to medicaments and other exogenous substances; K59.03 Drug induced constipation
CPT/HCPCS: 36415; 80053; 85025

== ENCOUNTER → 2024-08-11 16:12 | Outpatient (REF) | payer MEDICARE, OTHER, SELFPAY ==
[2024-08-11 12:41] LABS: Free T3 3.15 pg/ml (2.77-5.27); Free T4 1.55 ng/dl (0.78-2.19)
[2024-08-13 22:17] LABS: Total T3 (Sendout) 126 ng/dL (80-200)
== END ==
LOC: OIDL 16:12
PROVIDERS: ATTENDING PHYSICIAN Nurse Practitioner Primary Care
DX: C16.0 Malignant neoplasm of cardia (principal); C50.022 Malignant neoplasm of nipple and areola, left male breast; M25.50 Pain in unspecified joint; Z51.12 Encounter for antineoplastic immunotherapy; E03.2 Hypothyroidism due to medicaments and other exogenous substances; K59.03 Drug induced constipation
CPT/HCPCS: 84439; 84443; 84480; 84481

== ENCOUNTER → 2024-08-31 08:33 | Outpatient (REF) | payer MEDICARE, OTHER, SELFPAY | LOC: RAD 08:33 | PROVIDERS: ATTENDING PHYSICIAN Internal Medicine Hematology & Oncology; FAMILY PHYSICIAN Family Medicine | DX: C16.0 Malignant neoplasm of cardia (principal); C50.022 Malignant neoplasm of nipple and areola, left male breast | CPT/HCPCS: 71260; 74177; Q9967 ==

== ENCOUNTER → 2024-09-08 14:33 | Outpatient (REF) | payer MEDICARE, OTHER, SELFPAY ==
[2024-09-08 11:46] LABS: CEA 1.25 ng/ml
[2024-09-10 11:48] LABS: CA 27-29 24.8 U/mL (<=39.0)
== END ==
LOC: OIDL 14:33
PROVIDERS: ATTENDING PHYSICIAN Internal Medicine Hematology & Oncology
DX: C16.0 Malignant neoplasm of cardia (principal); C50.022 Malignant neoplasm of nipple and areola, left male breast; M25.50 Pain in unspecified joint; Z51.12 Encounter for antineoplastic immunotherapy; E03.2 Hypothyroidism due to medicaments and other exogenous substances; K59.03 Drug induced constipation
CPT/HCPCS: 82378; 86300

== ENCOUNTER → 2024-09-22 10:23 | Outpatient (REF) | payer MEDICARE, OTHER, SELFPAY ==
[2024-09-22 11:16] LABS: Free T3 2.94 pg/ml (2.77-5.27); Free T4 1.57 ng/dl (0.78-2.19)
[2024-09-22 11:29] LABS: TSH 0.11 uIU/ml (0.47-4.68)
== END ==
LOC: OIDL 10:23
PROVIDERS: ATTENDING PHYSICIAN Internal Medicine Hematology & Oncology
DX: C50.022 Malignant neoplasm of nipple and areola, left male breast (principal); E03.2 Hypothyroidism due to medicaments and other exogenous substances; C16.0 Malignant neoplasm of cardia; M25.50 Pain in unspecified joint; Z51.12 Encounter for antineoplastic immunotherapy; K59.03 Drug induced constipation
CPT/HCPCS: 84439; 84443; 84481

== ENCOUNTER 2024-10-15 15:20 | Inpatient (IN) | payer MEDICARE, OTHER, SELFPAY ==
[2024-10-15 12:51] VITALS: BMI 29.5
[2024-10-15 13:00] VITALS: BP 150/89
[2024-10-15 13:12] LABS: % Basophils 0.4 % (0-2); % Eosinophils 1.2 % (0-6); % Immature Granulocytes 0.4 % (0-0.5); % Lymphocytes 8.9 % (20.5-51.1); % Monocytes 7.7 % (1.7-9.3); % Neutrophils 81.4 % (42.2-75.2); Absolute Eosinophils 0.1 10^3/uL (0-0.7); Absolute Lymphocytes 0.5 10^3/uL (1.2-3.4); Absolute Monocytes 0.4 10^3/uL (0.1-0.6); Absolute Neutrophils 4.6 10^3/uL (1.4-6.5); Hematocrit 31.3 % (39.0-52.0); Hemoglobin 10.4 g/dL (13.0-18.0); Mean Corp Hgb Conc. 33.2 g/dL (33.0-37.0); Mean Corpuscular Volume 93.2 fL (80.0-94.0); Mean Platelet Volume 11.6 fL (7.4-10.4); Nucleated Red Blood Cells % 0.4 % (-); Platelet Count 101 10^3/uL (130-400); Red Blood Cell Count 3.36 10^6/uL (4.70-6.10); Red Cell Dist. Width 16.1 % (11.5-14.5); White Blood Cell Count 5.6 10^3/uL (4.8-10.8)
[2024-10-15 13:22] VITALS: BP 150/89
--- NOTE | 2024-10-15 13:27 | ED.GENMED ---
History of Present Illness
General
Chief Complaint: Weakness
Source: patient and spouse
Exam Limitations: none
Time Seen by Provider: 10/15/24 13:26
Nursing documentation reviewed up to this point in time: agreed with
History of Present Illness
History of Present Illness:
73-year-old male with history of TIA, HTN, NIDDM presents for an episode of shaking chills about 3 hours ago, then significant weakness with inability to stand.
at bedside states they were out doing errands earlier this morning, he was doing well he felt well, all of a sudden he had a sudden onset of significant shivering and got dizzy, she got him into the house and sat him in his recliner. About 15
minutes later he had to go to the bathroom, he could not get himself out of the recliner due to significant weakness, she eventually helped him up and he could only take 1 or 2 steps when he faltered backwards and fell back into the recliner with
his back on the recliner and his feet on the floor and she was unable to help him up so she called EMS.
He denies chest pain, cough, trouble breathing. He denies abdominal pain. Denies headache. He denies UTI symptoms.
Past History
Past History
ED Past Medical History: Arrthythmia, HTN and NIDDM
ED Past Surgical History: Orthopedic
Social History
Tobacco: Former smoker
Alcohol: Occasional
Personal:
Living: with family
Review of Systems
Review of Systems
Allergies reviewed?: Yes
All Other Systems: ROS reviewed and negative except as documented in HPI and ROS
Constitutional: Reports fever and fatigue
Respiratory: Denies cough or trouble breathing
Cardiac: Denies chest pain, palpitations or syncope
ABD/GI: Reports vomiting (vomited once on arrival, none since, denies nausea now); Denies abdominal pain, diarrhea or anorexia
: Denies dysuria, frequency or difficulty voiding
Musculoskeletal: Denies edema
Skin: Reports no symptoms
Neurological: Reports weakness (generalized); Denies headache or numbness
Phy Exam
Physical Exam
Physical Exam:
GENERAL: No acute distress. A&Ox3.
CONSTITUTIONAL: 104.4 R by this examiner
EYES: clear, conjunctivae normal
ENMT: dry mucus membranes, Pharynx nl
RESPIRATORY: Regular respirations, nonlabored, lungs clear.
CARDIOVASCULAR: Regular rate and rhythm, no murmurs, no rubs.
GI: Soft, nontender, normal BS
MUSCULOSKELETAL: No nuchal rigidity. No spinal bony tenderness. Moves slowly, turns independently without indication of pain. Well perfused.
SKIN: Warm, dry, pink. There is an swollen 11 x 12 cm erythema, warmth lateral aspect of left ankle. Distal n/v intact.
PSYCH: Normal mood and affect. Well kept, interactive and appropriate
NEUROLOGIC: Awake, alert and oriented. No focal neurological deficits
Sepsis
Sepsis Screening
Sepsis Assessment: Sepsis
Sepsis Screen
Sepsis Screen: Sepsis
Date: 10/15/24
Time: 18:07
Course
Orders/Labs/Results
Orders:
Orders
10/15/24 12:50
Electrocardiogram (*1) Urgent
Reason for Study: Fatigue / Weakness
10/15/24 12:51
EKG- Treatment ONCE
10/15/24 13:04
COVID-19 Antigen Urgent
Source: Nasal Swab
Complete Blood Count/With Diff Urgent
Comprehensive Metabolic Panel Urgent
Lactic Acid Urgent
Magnesium Urgent
Urinalysis Reflex To Culture Urgent
Date Specimen was Collected: 10/15/24
Time Specimen was Collected: 12:51
Urine Microscopic Reflex Cult Urgent
Blood Culture Urgent
GRANT Source: Blood/Venous
Specimen Description:
Influenza A+B Rapid Molecular Urgent
GRANT Source: Nasal Swab
Specimen Description:
10/15/24 13:43
0.9% Sodium Chloride 1000 ml [Nss] 2,500 ml IV NOW STA
0.9% Sodium Chloride 1000 ml [Nss] 3,100 ml IV NOW STA
CR Chest - 2 Views Urgent
Comment:
Reason For Exam: fever, sepsis
10/15/24 13:44
Acetaminophen [Tylenol] 1,000 mg PO NOW STA
10/15/24 13:48
Acetaminophen [Tylenol/Feverall] 650 mg RECTAL NOW STA
10/15/24 14:03
Blood Culture Urgent
GRANT Source: Blood/Venous
Specimen Description:
10/15/24 14:30
Piperacillin/Tazo 4.5 Gram [Zosyn] 4.5 gram in 100 ml IV NOW
10/15/24 14:48
Vancomycin [Vancocin] 2,000 mg 0.9% Sodium Chloride 500 ml [Nss] 500 ml IV NOW
10/15/24 Dinner
Regular
At Your Request: Full Participation
10/15/24 15:04
Admit/Transfer Patient As Directed
Co-Sign Provider:
Level of Care: Inpatient admission
Assign to:: Telemetry
Physician / Group: marina
Diagnosis: sepsis left ankle cellulitis
Reason for Telemetry: Arrhythmia
Date to Stop Telemetry: 10/18/24
Time to Stop Telemetry: 11:00
Reason for Hospitalization: sepsis left ankle cellulitis
Expected length of stay greater than two midnights?: Yes
ELOS- Estimated Length of Stay in days: 2
I certify the patient meets the requirements for IP care: Yes
Code Status As Directed
Resuscitation Status: Full Code
PRN Pain Medication Management As Directed
May give lesser potent ordered pain med per pt: Yes
preference::
Protocol:: Medication orders for pain may be administered in a
manner that supports deferring to patient preference
when the pt is:
- Requesting an ordered lesser potent pain medication.
Least to most potent pain medications are defined
as: acetaminophen < NSAID < tramadol < opioids
(morphine, oxycodone, hydromorphone).
- Requesting a lesser dose of the same medication IF
ORDERED.
- Requesting a less intrusive route of administration
if both routes are prescribed by the provider (PO <
IV).
10/15/24 16:26
Lactate Level [Lactic Acid] Q6H
0.9% Sodium Chloride 1000 ml [Nss] 1,000 ml IV 120 mls/hr
Acetaminophen [Tylenol] 650 mg PO Q4HPRN PRN
Dextrose 50%-Water [Dextrose 50% Syringe] 12.5 grams IV T70AMBD PRN
Glucagon [GlucaGen] 1 mg IM PRN PRN
Ondansetron Injectable [Zofran] 4 mg IV Q6HPRN PRN
10/15/24 16:26
VTE Contraindication Routine
VTE Mechanical Device Contraindication: Medical Contraindication
Pharmocologic Contraindication: Medical Contraindication
Activity As Directed
Activity Level: As Tolerated
Bedside Glucose Monitoring As Directed
Frequency: AC&HS
Additional Instructions:: Change to q6h if pt on TPN, tube feeding or not eating
Vital Signs As Directed
Frequency: Per unit guidelines
10/15/24 16:30
Insulin Aspart Corrective Low [Novolog Flexpen-Low Resistance] See Protocol SC AC
10/15/24 21:00
Piperacillin/Tazo 3.375 Gram [Zosyn] 3.375 gram in 50 ml IV Q6H
10/15/24 22:26
Lactate Level [Lactic Acid] Q6H
10/16/24 06:00
Complete Blood Count/With Diff IN AM
Comprehensive Metabolic Panel IN AM
Glycohemoglobin (HgbA1c) IN AM
10/18/24 11:00
DC Protocol for Telemetry ONCE
Abnormal Lab Results
10/15/24
13:04
RBC 3.36 L 10^6/uL
(4.70-6.10)
Hgb 10.4 L g/dL
(13.0-18.0)
Hct 31.3 L %
(39.0-52.0)
RDW 16.1 H %
(11.5-14.5)
Plt Count 101 L 10^3/uL
(130-400)
MPV 11.6 H fL
(7.4-10.4)
Absolute Lymphs (auto) 0.5 L 10^3/uL
(1.2-3.4)
Neutrophils % 81.4 H %
(42.2-75.2)
Lymphocytes % 8.9 L %
(20.5-51.1)
Glucose 131 H mg/dl
(70-99)
Lactic Acid 4.1 H* mmol/L
(0.7-2.0)
Total Bilirubin 1.5 H mg/dl
(0.2-1.3)
Total Protein 5.9 L g/dl
(6.3-8.2)
Urine RBC 3-6 A /HPF
(0-2)
Urine Bacteria (Reflex) Few A
(Negative)
Urine Glucose 2+ A
(Negative)
Urine Albumin (Reflex) 2+ A
(Neg - Trace)
10/15/24 13:04
10/15/24 13:04
Vital Signs
Initial and Last Documented VS:
Initial Vital Signs
Pulse Resp Pulse Ox
82 20 94
10/15/24 12:51 10/15/24 12:51 10/15/24 12:51
Last Documented Vital Signs
Temp Pulse Resp BP Pulse Ox
103.0 F H 98 19 149/66 95
10/15/24 16:42 10/15/24 16:42 10/15/24 16:42 10/15/24 16:42 10/15/24 16:42
MDM/Problems Addressed
Differential Diagnosis Includes:
Sepsis, SIRS, pneumonia, UTI
MDM/Problems Addressed:
73-year-old male with history of TIA, HTN, NIDDM presents for an episode of shaking chills about 3 hours ago, then significant weakness with inability to stand.
at bedside states they were out doing errands earlier this morning, he was doing well he felt well, all of a sudden he had a sudden onset of significant shivering and got dizzy, she got him into the house and sat him in his recliner. About 15
minutes later he had to go to the bathroom, he could not get himself out of the recliner due to significant weakness, she eventually helped him up and he could only take 1 or 2 steps when he faltered backwards and fell back into the recliner with
his back on the recliner and his feet on the floor and she was unable to help him up so she called EMS.
He denies chest pain, cough, trouble breathing. He denies abdominal pain. Denies headache. He denies UTI symptoms.
2:30 PM:
CBC with no clinically significant abnormality, consistent with his chronic mild anemia
CMP: Normal
UA negative for infection
COVID-negative please
Lactic acid elevated at 4.1
Blood cultures pending
chest x-ray radiology report read: IMPRESSION:
1. No acute pulmonary process identified.
2. Osseous findings representing either ankylosing spondylitis or possibly diffuse idiopathic skeletal hyperostosis. Previously seen fracture at the T8 level not clearly identifiable on this exam.
Plan: Admit to hospitalist, SIRS protocol, Cellulitis left lower leg
Blood cultures pending
Hospitalist notified
*EKG
EKG Intrepretation Date: 10/15/24
Interpretation: abnormal
Heart Rate: 82
Rate: normal
Rhythm: sinus
Laura: normal axis
Interval: first degree heart block
QRS Pattern: normal QRS
Ischemia: no ischemia
*Critical Care Note
Total Time (30-74mins, 75-104mins- exclusive of procedures): Not Applicable
ED Attending Note
-
Portions of this chart may have been created with voice recognition software.� Occasional wrong word or��sound alike� substitutions may have occurred due to the inherent limitations of voice recognition software.
Discharge Plan
Departure
Patient Disposition: Admit
Date of Disposition: 10/15/24
Time of Disposition: 14:30
Admit to: Med/Surg
Presentation/result/management discussed w/ accepting MD/DO: Hospitalist
Condition: Fair
Discharge Problem:
SIRS (systemic inflammatory response syndrome), Cellulitis of left ankle
Interventions
Interventions:
*Risk Screen - Suicide Last Done: 10/15/24 13:22
*General Assessment Last Done: 10/15/24 13:22
*Neglect/Abuse Screening Last Done: 10/15/24 13:22
*ED- Fall Risk Assessment Last Done: 10/15/24 13:22
*ED COVID-19 Vaccine History Last Done: 10/15/24 13:22
*Nursing Disposition Last Done: 10/15/24 16:04
ED- Cardiac Assessment Last Done: 10/15/24 13:22
ED- Neurological Assessment Last Done: 10/15/24 13:22
ED- Pulmonary Assessment Last Done: 10/15/24 13:22
Discharge Date and Time
Discharge Date/Time: 10/15/24 16:20
[2024-10-15 13:30] LABS: COVID-19 Antigen Negative (Negative); Lactic Acid 4.1 mmol/L (0.7-2.0)
[2024-10-15 13:35] LABS: ALT (SGPT) 17 U/L (0-50); AST (SGOT) 24 U/L (17-59); Albumin 3.6 g/dl (3.5-5.0); Alkaline Phosphatase 64 U/L (38-126); Blood Urea Nitrogen 12 mg/dl (9-20); Calcium 8.8 mg/dl (8.4-10.2); Carbon Dioxide 28 mmol/L (22-30); Chloride 107 mmol/L (98-107); Estimated Creatinine Clearance 74 ml/min; Glucose 131 mg/dl (70-99); Magnesium 1.7 mg/dl (1.6-2.3); Potassium 3.7 mmol/L (3.5-5.1); Sodium 142 mmol/L (135-145); Total Bilirubin 1.5 mg/dl (0.2-1.3); Total Protein 5.9 g/dl (6.3-8.2); eGFR > 60.00
[2024-10-15 13:36] LABS: Urine Albumin 2+ (Neg - Trace); Urine Bilirubin Negative (Negative); Urine Character Clear (Clear); Urine Color Yellow; Urine Glucose 2+ (Negative); Urine Ketone Negative (Negative); Urine Leukocyte Negative (Negative); Urine Nitrite Negative (Negative); Urine Occult Blood Negative (Negative); Urine Specific Gravity 1.015 (<1.030); Urine Urobilinogen Negative (Neg - 1+)
[2024-10-15] MEDS: TYLENOL/FEVERALL 650 MG RECTAL (13:53)
[2024-10-15] MEDS: NSS 2500 ML IV (13:53)
[2024-10-15 14:05] LABS: Urine Calcium Oxalate Crystals Present
[2024-10-15 14:06] LABS: Urine Bacteria Few (Negative)
[2024-10-15 15:00] VITALS: BP 173/158
--- NOTE | 2024-10-15 15:08 | HPS.HSE ---
Family Physician
-
Family Physician: Ayesha Henning MD
Chief Complaint
-
weakness
History of Present Illness
73-year-old male past medical history of esophageal cancer on chemotherapy, breast cancer on hormonal therapy, paroxysmal atrial fibrillation on Eliquis, hypertension, TIA, diabetes, BPH presenting for shaking and chills and significant weakness.
states that they were doing errands in the morning when he felt well and all of a sudden he had significant shivering and dizziness. She eventually helped him and he can only take 1 or 2 steps when he faltered backwards and fell backward into
the recliner and she was unable to get him up. He denies any chest pain, cough, upper respiratory symptoms, shortness of breath, abdominal pain, headache, urinary symptoms. Denies any back pain.
Family not aware of the redness and swelling and warmth of the left ankle until he came here today.
He had 1 episode of vomiting and diarrhea today. Denies any abdominal pain. No sick contacts.
He is a former smoker and alcohol user.
Medical History
Past Medical History
Past Medical History: Reports Other (esophageal cancer on chemotherapy, breast cancer on hormonal therapy, paroxysmal atrial fibrillation on Eliquis, hypertension, TIA, diabetes, BPH)
Past Surgical History: Reports None
Social History
Tobacco: Former Smoker
Alcohol: Former
Drug: None
Family History
Family History: Not pertinent
Allergies / Home Medications
Allergies reflects when Allergies were last updated in [facility].
Home Medications with original date entered in [facility]
Allergy/Medication List:
Allergies
Allergy/AdvReac Type Severity Reaction Status Date / Time
No Known Allergies Allergy Verified 10/03/23 17:56
Home Medications
apixaban 5 mg tablet (Eliquis) 5 mg PO BID #180 tabs 09/26/21
folic acid 1 mg tablet 1 mg PO DAILY #90 tabs 09/26/21
tamsulosin 0.4 mg capsule 0.8 mg (2 x 0.4 mg) PO HS #180 caps 09/26/21
atorvastatin 40 mg tablet 40 mg PO HS 09/02/23
metformin 500 mg tablet,extended release 24 hr 500 mg PO BID 09/02/23
multivitamin 1 tab PO DAILY 09/02/23
nebivolol 10 mg tablet 10 mg PO HS 09/02/23
telmisartan 80 mg tablet 80 mg PO HS 09/02/23
cetirizine 10 mg tablet (Zyrtec) 10 mg PO DAILY 06/22/24
polyethylene glycol 3350 17 gram oral powder packet (Miralax) 17 g PO DAILYPRN PRN CONSTIPATION 06/22/24
tamoxifen 20 mg tablet 20 mg PO DAILY 06/22/24
Review of Systems
-
Constitutional: Reports No Symptoms
EENT: Reports No Symptoms
Respiratory: Reports No Symptoms
Cardiac: Reports No Symptoms
Abdomen/GI: Reports No Symptoms
: Reports No Symptoms
Musculoskeletal: Reports No Symptoms
Skin: Reports No Symptoms
Neurological: Reports No Symptoms
Endocrine: Reports No Symptoms
Hematologic/Lymphatic: Reports No Symptoms
Psych: Reports No Symptoms
Physical Exam
Vital Signs
Vital Signs
Temp Pulse Resp BP Pulse Ox
105.2 F H 87 20 150/89 92
10/15/24 13:22 10/15/24 13:22 10/15/24 13:22 10/15/24 13:22 10/15/24 13:22
Physical Exam
General: Well Developed, Well Nourished and No Apparent Distress
HEENT: NormoCephalic, Moist mucous membranes and Atraumatic
Respiratory: Clear
Cardiac: S1/S2 and Regular Rhythm; No Murmur or Rub
GI: Soft, Non Tender, Non Distended and Normal Bowel Sounds; No Organomegaly
Rectal: Deferred by Provider
Musculoskeletal: No Clubbing, No Cyanosis and No Edema
Skin: Other (left calf redness and swelling ); No Rash
Neuro: Nonfocal/grossly intact
Laboratory Results
-
10/15/24 13:04
10/15/24 13:04
Laboratory Results
Lactic Acid 4.1 mmol/L (0.7-2.0) H* 10/15/24 13:04
Total Bilirubin 1.5 mg/dl (0.2-1.3) H 10/15/24 13:04
AST 24 U/L (17-59) 10/15/24 13:04
ALT 17 U/L (0-50) 10/15/24 13:04
Alkaline Phosphatase 64 U/L (38-126) 10/15/24 13:04
Data Reviewed
-
Lab Data: Labs Reviewed by me
Old Records: Reviewed
Impression/Plan
-
IMPRESSION:
PLAN:
# Sepsis (high-grade fever) likely secondary to left Cellulitis in immunocompromised patient
-Urinalysis unremarkable
-Chest x-ray unremarkable apart from ankylosing spondylitis or diffuse idiopathic skeletal hyperostosis
-Lactic acid 4
- Blood cultures
- IV fluids
-Single episode of vomiting and diarrhea but doubt GI illness
-Vancomycin/Zosyn for now
Essential hypertension
- Continue telmisartan, Nebivolol
Paroxysmal atrial fibrillation
- Continue Eliquis
Esophageal cancer
- Undergoing chemotherapy due on Saturday
- Follows Dr. August
Breast cancer
- Continue tamoxifen
History of TIA
- Continue statin
Type 2 diabetes
- Hold metformin
- Insulin sliding scale
BPH
- Continue tamsulosin
Lower extremity edema
- Hold Lasix
Full code
DVT prophylaxis�Eliquis
Regular diet
[2024-10-15] MEDS: ZOSYN 100 IV (15:17)
[2024-10-15] MEDS: VANCOCIN 540 MG IV (15:17)
[2024-10-15] MEDS: NSS 1000 IV (16:39)
[2024-10-15 16:41] VITALS: BMI 28.9
[2024-10-15 16:42] VITALS: BP 149/66
--- NOTE | 2024-10-15 16:46 | PHA.VAN.IN ---
Assessment
- Assessment
Renal Function: Appears similar to baseline (1.0)
Maximum Temperature: 105.2
Concomitant Antimicrobials: Piperacillin/Tazobactam
- Previous Dosing Experience
Previous Regimen: Vanco 1250mg Q12H
Date of Regimen: 07/01/2017
Provided Trough of: N/A
Provided AUC of: N/A
Patient's SCR is: Similar to previous dosing experience (1.1)
Patient's weight is: Decreased compared to previous dosing experience (135.6kg)
AUC Dosing Plan
- Dosing Variables
Dosing Weight (kg): 101.86
Dosing CrCl (ml/min): 74
Vd coefficient (L/kg): 0.7
- Empiric Dosing
Initial / Loading Dose: Vanco 2000mg loading administered on 10/15/24 at 1517
Maintenance Regimen: Vanco 1250mg Q12H starting 10/16/24 at 0600
Estimated AUC (mcg*h/mL): 559
Estimated Peak (mcg*h/mL): 32.1
Estimated Trough (mcg/ml): 16.1
Estimated Half Life (H): 10.5
- Monitoring
No levels ordered at this time: Consider in the next few days
Pharmacokinetics Vancomycin I
- -
Patient Age: 73
Patient Sex: Male
Vancomycin Day #: 1
Indication: Skin And Soft Tissue
Requesting Provider: Carlos
Pertinent Antimicrobial Allergies:
No known allergies
Height / Weight:
Height 6 ft 2 in
Actual Weight 101.86 kg
- Vital Signs / Lab Results
Temp Pulse Resp BP Pulse Ox
103.0 F H 98 19 149/66 95
10/15/24 16:42 10/15/24 16:42 10/15/24 16:42 10/15/24 16:42 10/15/24 16:42
Lab Results - Hematology
10/15/24
13:04
WBC 5.6
Lab Results - Chemistry
10/15/24
13:04
BUN 12
Creatinine 1.0
Estimated Creat Clear 74
Albumin 3.6
10/15/24
13:04
Lactic Acid 4.1 H*
Lab Results - Urine
10/15/24
13:04
Urine Nitrite (Reflex) Negative
Leukocyte Esterase Rfl Negative
Urine WBC (Reflex) 3-5
Ur Squamous Epith Cells 11-15
Urine Bacteria (Reflex) Few A
Microbiology Results
10/15/24 13:04 Influenza Types A & B (MARLENE) - Final
Nasal Swab Negative for Influenza A & B, NAAT
Negative results must be combined with clinical observations
and patient history.
Nucleic Acid Amplification test (NAAT)performed on the
[employer] NOW platform.
[2024-10-15 16:47] LABS: Glucose - Point of Care 142 mg/dl (70-99)
[2024-10-15 16:57] VITALS: BMI 28.9
[2024-10-15] MEDS: NOVOLOG FLEXPEN-LOW RESISTANCE SC (17:11)
--- NOTE | 2024-10-15 18:17 | PTCARENOTE ---
pt admitted to tele. pt oriented to self and place. forgetful at times. gen weakness. inc of urine. temp elevated tylenol had been given in ER. ivf started as ordered. pt family at bedside. reviewed pt condition and plan of care. left lower
leg has red warm area marked initially by ER. both heels are slightly red as well as his sacrum. pt has right sub q port accessed.
[2024-10-15 19:24] LABS: Lactic Acid 1.3 mmol/L (0.7-2.0)
[2024-10-15 19:26] VITALS: BP 122/71
[2024-10-15] MEDS: TYLENOL 650 MG PO (19:28)
[2024-10-15] MEDS: ZOSYN 50 IV (20:35)
[2024-10-15 21:04] LABS: Glucose - Point of Care 153 mg/dl (70-99)
[2024-10-15] MEDS: MOTRIN 200 MG PO (21:55)
[2024-10-15] MEDS: BYSTOLIC PO (22:33)
[2024-10-15] MEDS: LIPITOR 40 MG PO (22:34)
[2024-10-15] MEDS: ELIQUIS 5 MG PO (22:35)
[2024-10-15 23:20] VITALS: BP 106/46
[2024-10-15 23:41] LABS: Lactic Acid 1.9 mmol/L (0.7-2.0)
--- NOTE | 2024-10-15 23:46 | PTCARENOTE ---
Patient had a temp of 101.7 for which had Tylenol 650mg at 19:08. Just now patient's temp- 102.8. Patient is on Eliquis BID at home, which not ordered. BENNIE Collins made aware of temp/ Eliquis. See MAR for new orders.
[2024-10-16] VITALS (9 sets, daily range): BP systolic 110–166; BP diastolic 45–77; PULSE 55; O2SAT 99
[2024-10-16] MEDS: NSS 1000 IV (01:41)
[2024-10-16] MEDS: ZOSYN 50 IV ×2 (02:07→09:22)
[2024-10-16 05:03] LABS: % Basophils 0.4 % (0-2); % Immature Granulocytes 0.6 % (0-0.5); % Lymphocytes 3.4 % (20.5-51.1); % Monocytes 4.9 % (1.7-9.3); % Neutrophils 90.7 % (42.2-75.2); Absolute Immature Granulocytes 0.1 10^3/uL (0-0.05); Absolute Lymphocytes 0.3 10^3/uL (1.2-3.4); Absolute Monocytes 0.4 10^3/uL (0.1-0.6); Absolute Neutrophils 7.8 10^3/uL (1.4-6.5); Hematocrit 24.3 % (39.0-52.0); Hemoglobin 8.2 g/dL (13.0-18.0); Mean Corp Hgb Conc. 33.7 g/dL (33.0-37.0); Mean Corpuscular Hgb 31.2 pg (27.0-31.0); Mean Corpuscular Volume 92.4 fL (80.0-94.0); Mean Platelet Volume 10.9 fL (7.4-10.4); Nucleated Red Blood Cells % 0 % (-); Platelet Count 85 10^3/uL (130-400); Red Blood Cell Count 2.63 10^6/uL (4.70-6.10); Red Cell Dist. Width 16.9 % (11.5-14.5); White Blood Cell Count 8.5 10^3/uL (4.8-10.8)
[2024-10-16] MEDS: VANCOCIN 275 MG IV (05:07)
[2024-10-16 05:14] LABS: ALT (SGPT) 14 U/L (0-50); AST (SGOT) 20 U/L (17-59); Albumin 2.5 g/dl (3.5-5.0); Alkaline Phosphatase 42 U/L (38-126); Blood Urea Nitrogen 17 mg/dl (9-20); Calcium 7.8 mg/dl (8.4-10.2); Carbon Dioxide 24 mmol/L (22-30); Chloride 112 mmol/L (98-107); Estimated Creatinine Clearance 57 ml/min; Glucose 140 mg/dl (70-99); Potassium 3.3 mmol/L (3.5-5.1); Sodium 140 mmol/L (135-145); Total Bilirubin 1.7 mg/dl (0.2-1.3); Total Protein 4.6 g/dl (6.3-8.2); eGFR 57.29
[2024-10-16 07:37] LABS: Glucose - Point of Care 123 mg/dl (70-99)
[2024-10-16] MEDS: NOVOLOG FLEXPEN-LOW RESISTANCE SC ×2 (07:40→12:37)
[2024-10-16 09:22] LABS: Glycohemoglobin (HgbA1c) 5.3 % (4.0-5.6)
[2024-10-16] MEDS: THERAGRAN 1 TABLET PO (09:22)
[2024-10-16] MEDS: FOLVITE 1 MG PO (09:22)
[2024-10-16] MEDS: ELIQUIS 5 MG PO ×2 (09:22→21:18)
[2024-10-16] MEDS: NOLVADEX 20 MG PO (09:22)
--- NOTE | 2024-10-16 09:22 | W.PN.HOSP.TC ---
Today's Communication/Plan
-
Consult ID & Oncology
Repeat blood culture
Replace K
Assessment / Plan
Assessment / Plan
Physical Exam
General: Well Developed and Well Nourished
HEENT: Moist Mucous Membranes, Anicteric and PERRLA
Respiratory: Clear to Auscultation and Non-Labored Respirations; Negative Wheezes, Rales or Rhonchi
Cardiac: Regular Rhythm and S1/S2;
GI: Soft, Nontender, Nondistended and Normal Bowel Sounds
Musculoskeletal: No joint swelling. �Negative Edema, Left Lower Extrem
Skin: Warm, Dry and no rash
Neuro: Awake and AO x 3, non-focal exam.
Psych: Calm
# Sepsis POA/ lactic acidosis
Bacteremia
-Urinalysis unremarkable
-Chest x-ray unremarkable apart from ankylosing spondylitis or diffuse idiopathic skeletal hyperostosis
-Lactic acid 4
came down
- repeat Blood culture
- c/w mild IV fluids
-Single episode of vomiting and diarrhea but doubt GI illness, do stool testing if repeat
-Vancomycin/Zosyn for now
- Appreciate ID help
# Anemia/ thrombocytosis due to chemotherapy
# hypokalemia
Replace
# Essential hypertension
- Continue telmisartan, Nebivolol
#Paroxysmal atrial fibrillation
- Continue Eliquis
#Esophageal cancer
- Undergoing chemotherapy due on Saturday
- Follows Dr. August
#Breast cancer
- Continue tamoxifen
#History of TIA
- Continue statin
#Type 2 diabetes
- Hold metformin
- Insulin sliding scale
#BPH
- Continue tamsulosin
#Lower extremity edema
- Hold Lasix while sick
Full code
DVT prophylaxis�Eliquis
Regular diet
Total time spent to see the patient, examine the patient, review data and lab result, discuss treatment plan with patient, , nursing staff around 55 minutes
Anticipated Discharge: > 48 hours
Subjective/Interval History
-
Date of Service: October 16, 2024
He feels better
No chest pain, no abdominal pain
He denies pain in left leg
Objective Data
-
Labs:
Laboratory Results
10/16/24
04:22
WBC 8.5
Hgb 8.2 L D
Hct 24.3 L
Plt Count 85 L
Sodium 140
Potassium 3.3 L
Chloride 112 H
Carbon Dioxide 24
BUN 17
Creatinine 1.3
Glucose 140 H
Calcium 7.8 L
Total Bilirubin 1.7 H
AST 20
ALT 14
Alkaline Phosphatase 42
Vital Signs:
Vital Signs
Temp Pulse Resp BP Pulse Ox
97.7 F 61 18 130/54 97
10/16/24 07:00 10/16/24 07:00 10/16/24 07:00 10/16/24 07:00 10/16/24 07:00
I&O
10/15/24 10/16/24 10/17/24
06:59 06:59 06:59
Intake Total 960 / 960
Output Total 350 / 350
Balance 610 / 610
--- NOTE | 2024-10-16 09:25 | CON.ONC ---
Documented by User: Matthieu Bay DO, Resident 10/16/24 11:59
Consultation
-
Date Consultation Requested: 10/15/24
Date Consultation Performed: 10/16/24
Requesting Provider: Raysa Gonzalez MD
Performing Provider: cindy Hernández
Reason for Consultation: Esophageal cancer, breast cancer currently receiving chemo/hormone therapy
Impression
Impression
73-year-old male past medical history of left breast carcinoma and esophageal carcinoma stage IV currently on chemotherapy and hormone therapy with Dr. August at [facility]. Presents for sepsis, suspected secondary to left lower extremity cellulitis
Plan
Plan
#Esophageal carcinoma
Gastric carcinoma is stage IV clinically C2-T3 CN2 M1
Diagnosed via EGD and biopsy after presenting with heme positive stools
Gastric thickening seen in gastroesophageal junction on CT imaging, also has what is presumed to be metastatic lymphadenopathy in the adjacent gastrohepatic ligament
Pathology revealed poorly differentiated gastric adenocarcinoma, ER negative. Do not believe gastric is related to his left breast cancer
Currently he is on FOLF plus pembrolizumab every 2 weeks for gastric cancer. Reportedly his last cycle of chemo was last week
Next cycle of chemo scheduled for 10/20/2024. If patient has still in the hospital or needs SNF, will require reschedule his next chemo regimen
Will place PT OT consult to evaluate performance status
Patient is also at risk of DIC with gastric cancers, will check coag studies, fibrinogen and D-dimer tomorrow morning
Patient will be appropriate for genetic counseling in the outpatient setting, will arrange
# Male left breast carcinoma
Treating with outpatient tamoxifen
#Atrial fibrillation on Eliquis
#Thrombocytopenia
Currently in sinus
receiving p.o. Eliquis and heparin 500 IV
High risk for GI bleeding with GI malignancy, also past history of heme positive stools
Currently reporting no blood in stools or dark stools
Platelets downtrending, would recommend consideration of holding Eliquis, antiplatelets and NSAIDs if platelet counts fall below 50,000 or patient begins having bloody stools
#Sepsis
#Left lower extremity cellulitis
Reportedly presented with episodes of shivering and dizziness, had episode of difficulty walking and presented to the ED found to be have SIRS criteria and lactic acidosis
Suspect source is left lower extremity cellulitis, erythematous and hot on exam
Urinalysis unremarkable, chest x-ray unremarkable for infection
Blood cultures drawn and pending
Initiate on IV fluids
Initiated on empiric vancomycin and Zosyn
ID consulted
Patient History
History of Present Illness
73-year-old male with a past medical history of breast cancer, ER positive and on tamoxifen. Who presented to [place] previously with anemia heme positive stools he underwent EGD and colonoscopy. EGD revealed an esophageal mass which was
biopsied, pathology revealed signet ring adenocarcinoma suggesting gastric primary with extension into the esophagus. Pathology was ER negative and this was unrelated to his breast carcinoma. Previous inpatient CT scan demonstrated 1.4 cm left
breast mass, as well as thickening of the gastroesophageal junction with adjacent enlarged lymph nodes in the gastrohepatic ligament area consistent with metastatic lymphadenopathy. Gastric carcinoma is stage IV clinically C2-T3 CN2 M1. Patient
receives his treatment with Dr. August at [facility]. He is on FOLF plus pembrolizumab and tamoxifen. He presented to [place] emergency department for sepsis likely secondary to cellulitis. He was initiated on broad-spectrum vancomycin and
Zosyn and admitted.
Past-Medical/Surgical History
Esophageal cancer, breast carcinoma, compression fracture, anemia, hypertension, history TIA, BPH, type 2 diabetes
Patient Medication
�Medication �Instructions �Recorded �Confirmed �Last Taken �Type
apixaban 5 mg tablet (Eliquis) 5 mg PO BID #180 tabs 09/26/21 10/15/24 10/15/24 Rx
folic acid 1 mg tablet 1 mg PO DAILY #90 tabs 09/26/21 10/15/24 10/15/24 Rx
atorvastatin 40 mg tablet 40 mg PO HS High Cholesterol 09/02/23 10/15/24 10/14/24 History
metformin 500 mg tablet,extended 500 mg PO DAILY Diabetes 09/02/23 10/15/24 10/15/24 History
release 24 hr
multivitamin 1 tab PO DAILY Supplement 09/02/23 10/15/24 10/15/24 History
nebivolol 10 mg tablet 10 mg PO HS Blood Pressure 09/02/23 10/15/24 10/14/24 History
telmisartan 80 mg tablet 80 mg PO HS Blood Pressure 09/02/23 10/15/24 10/14/24 History
tamoxifen 20 mg tablet 20 mg PO DAILY Cancer 06/22/24 10/15/24 10/15/24 History
furosemide 20 mg tablet 20 mg PO DAILY Fluid 10/15/24 10/15/24 Unknown History
Retention/Swelling
Active Medications
Generic Name Dose Route Start Last Admin
Trade Name Freq PRN Reason Stop Dose Admin
Acetaminophen 650 mg 10/15/24 16:26 10/15/24 19:28
Acetaminophen 325 Mg Tablet PO 11/12/24 16:25 650 mg
Q4HPRN PRN Administration
mild pain/BELLA/temp> 100.4F
Apixaban 5 mg 10/15/24 22:00 10/15/24 22:35
Apixaban (Eliquis) 5 Mg Tablet PO 11/12/24 21:59 5 mg
BID EARL Administration
Atorvastatin Calcium 40 mg 10/15/24 22:00 10/15/24 22:34
Atorvastatin (Lipitor) 40 Mg Tablet PO 11/12/24 21:59 40 mg
HS EARL Administration
Dextrose 12.5 grams 10/15/24 16:26
Dextrose 50% (0.5 Grams/Ml) 50 Ml Syringe IV 11/12/24 16:25
Q10USVY PRN
hypoglycemia
Protocol
Folic Acid 1 mg 10/16/24 08:00
Folic Acid 1 Mg Tablet PO 11/13/24 07:59
DAILY EARL
Glucagon 1 mg 10/15/24 16:26
Glucagon 1 Mg Vial IM 11/12/24 16:25
PRN PRN
hypoglycemia
Protocol
Heparin Sodium (Porcine) 500 unit 10/15/24 17:30
Heparin Flush Pf (100 Unit/Ml) 5 Ml Syringe IV 11/12/24 17:29
PER PROTOCOL EARL
Sodium Chloride 1,000 mls @ 120 mls/hr 10/15/24 16:26 10/16/24 01:41
Nss IV 1,000 mls
.Q8H20M EARL Administration
Piperacillin Sod/Tazobactam Sod 3.375 gram in 50 mls @ 100 mls/hr 10/15/24 21:00 10/16/24 02:07
Zosyn IV 50 mls
Q6H EARL Administration
Vancomycin HCl 1,250 mg/ 275 mls @ 183.33 mls/hr 10/16/24 06:00 10/16/24 05:07
Sodium Chloride IV 275 mls
Q12H EARL Administration
Protocol
Insulin Aspart 0 units 10/15/24 16:30 10/16/24 07:40
Insulin Aspart Low Resistance 300 Units/3 Ml Pen.Injctr SC 11/12/24 16:29 Not Given
AC EARL
Protocol
Losartan Potassium 100 mg 10/16/24 22:00
Losartan 100 Mg Tablet PO 11/13/24 21:59
HS EARL
Multivitamins Therapeutic 1 tablet 10/16/24 08:00
Multivitamin Tablet PO 11/13/24 07:59
DAILY EARL
Nebivolol 10 mg 10/15/24 22:15 10/15/24 22:33
Nebivolol Hcl 10 Mg Tablet PO 11/12/24 22:14 Not Given
HS EARL
Ondansetron HCl 4 mg 10/15/24 16:26
Ondansetron 4 Mg/2 Ml Vial IV 11/12/24 16:25
Q6HPRN PRN
nausea and vomiting
Sodium Chloride 0 flush 10/15/24 22:00
Sodium Chloride 0.9% (Flush) Syringe IV 11/12/24 21:59
PER PROTOCOL EARL
Tamoxifen Citrate 20 mg 10/16/24 08:00
Tamoxifen 10 Mg Tablet PO 11/13/24 07:59
DAILY EARL
Review of Systems
-
History Source: Patient
Constitutional: Reports No Symptoms
Respiratory: Reports No Symptoms
Cardiac: Reports No Symptoms
GI: Reports No Symptoms; Denies Abdominal Pain, Nausea, Vomiting, Diarrhea, Bloody Stools or Pain
Breast: Reports No Symptoms
Skin: Reports Other (Erythema present on left lower extremity. Endorses lower extremity edema)
Neuro: Reports No Symptoms
Physical Exam
-
General: Well Developed, Well Nourished, No Apparent Distress and Comfortable
Cardiology: Normal Sinus Rhythm, S1 and S2
Pulmonary: Clear
GI: Soft and Other (No pain to light or deep palpation)
Extremities: Edema
Skin: Warm, Dry and Rash (Left lower extremity erythema present. Hot to touch. Erythema has spread past markings present on leg.)
Psych: Calm and Intact Judgement/Insight
Labs
Lab Results
WBC 8.5 10^3/uL (4.8-10.8) 10/16/24 04:22
RBC 2.63 10^6/uL (4.70-6.10) L 10/16/24 04:22
Hgb 8.2 g/dL (13.0-18.0) L D 10/16/24 04:22
Hct 24.3 % (39.0-52.0) L 10/16/24 04:22
MCV 92.4 fL (80.0-94.0) 10/16/24 04:22
MCH 31.2 pg (27.0-31.0) H 10/16/24 04:22
MCHC 33.7 g/dL (33.0-37.0) 10/16/24 04:22
RDW 16.9 % (11.5-14.5) H 10/16/24 04:22
Plt Count 85 10^3/uL (130-400) L 10/16/24 04:22
MPV 10.9 fL (7.4-10.4) H 10/16/24 04:22
Abs Immat Gran (auto) 0.1 10^3/uL (0-0.05) H 10/16/24 04:22
Absolute Neuts (auto) 7.8 10^3/uL (1.4-6.5) H 10/16/24 04:22
Absolute Lymphs (auto) 0.3 10^3/uL (1.2-3.4) L 10/16/24 04:22
Absolute Monos (auto) 0.4 10^3/uL (0.1-0.6) 10/16/24 04:22
Absolute Eos (auto) 0.0 10^3/uL (0-0.7) 10/16/24 04:22
Absolute Basos (auto) 0.0 10^3/uL (0-0.2) 10/16/24 04:22
Immature Gran % 0.6 % (0-0.5) H 10/16/24 04:22
Neutrophils % 90.7 % (42.2-75.2) H 10/16/24 04:22
Lymphocytes % 3.4 % (20.5-51.1) L 10/16/24 04:22
Monocytes % 4.9 % (1.7-9.3) 10/16/24 04:22
Eosinophils % 0.0 % (0-6) 10/16/24 04:22
Basophils % 0.4 % (0-2) 10/16/24 04:22
Creatinine 1.3 mg/dL (0.7-1.3) 10/16/24 04:22
Vital Signs
Vital Signs
Temp Pulse Resp BP Pulse Ox
97.7 F 61 18 130/54 97
10/16/24 07:00 10/16/24 07:00 10/16/24 07:00 10/16/24 07:00 10/16/24 07:00

Documented by User: BENNIE Zayas 10/16/24 14:59
Plan
Plan
#Esophageal carcinoma
Gastric carcinoma is stage IV clinically C2-T3 CN2 M1
Diagnosed via EGD and biopsy after presenting with heme positive stools
Gastric thickening seen in gastroesophageal junction on CT imaging, also has what is presumed to be metastatic lymphadenopathy in the adjacent gastrohepatic ligament
Pathology revealed poorly differentiated gastric adenocarcinoma, ER negative. Do not believe gastric is related to his left breast cancer
Currently he is on FOLF plus pembrolizumab every 2 weeks for gastric cancer. Reportedly his last cycle of chemo was last week
Next cycle of chemo scheduled for 10/20/2024. If patient has still in the hospital or needs SNF, will require reschedule his next chemo regimen
Will place PT OT consult to evaluate performance status
Patient is also at risk of DIC with gastric cancers, will check coag studies, fibrinogen and D-dimer tomorrow morning
Patient will be appropriate for genetic counseling in the outpatient setting, will arrange
# Male left breast carcinoma
Treating with outpatient tamoxifen
#Atrial fibrillation on Eliquis
#Thrombocytopenia
Currently in sinus
receiving p.o. Eliquis and heparin 500 IV
High risk for GI bleeding with GI malignancy, also past history of heme positive stools
Currently reporting no blood in stools or dark stools
Platelets downtrending, would recommend consideration of holding Eliquis, antiplatelets and NSAIDs if platelet counts fall below 50,000 or patient begins having bloody stools
#Sepsis
#Left lower extremity cellulitis
Reportedly presented with episodes of shivering and dizziness, had episode of difficulty walking and presented to the ED found to be have SIRS criteria and lactic acidosis
Suspect source is left lower extremity cellulitis, erythematous and hot on exam
Urinalysis unremarkable, chest x-ray unremarkable for infection
Blood cultures drawn and pending
Initiate on IV fluids
Initiated on empiric vancomycin and Zosyn
ID consulted
Pt seen and examined. Agree with assessment and plan by Dr. Albarado.
--- NOTE | 2024-10-16 09:37 | PTCARENOTE ---
+ blood culture redult
--- NOTE | 2024-10-16 09:38 | PTCARENOTE ---
positive blood culture result relayed to Dr Louis
[2024-10-16] MEDS: KCL 20 MEQ PO (10:35)
--- NOTE | 2024-10-16 11:19 | PN.CDI ---
Addendum entered and electronically signed by Terry Louis MD 10/16/24 11:31:
Sacrum Stage 1 Pressure Injury, POA
Bilateral Heels Stage 1 Pressure Injury, POA
Original Note:
CDI
- -
CDI:
Physician Documentation Request
Admit Date: 10/15/24 15:20
Dear Doctor Missy,
Clinical Indicators:
Patient admitted with sepsis.
10/15 RN skin/wound assessments: Sacrum Stage 1 Pressure Injury, POA
Bilateral Heels Stage 1 Pressure Injury, POA
Physician documentation of the type and location of wounds is required for compliant documentation. Based on the above clinical findings and your assessment, please provide the following in your progress note:
1. Location of the ulcer/wound, including laterality.
2. Type (etiology) of ulcer/wound:
- Pressure (decubitus) ulcer
- Other, please specify
3. If a pressure ulcer, please also include the stage* of the ulcer:
- Stage 1 - Skin intact, non-blanchable redness
- Stage 2 - Partial thickness loss of dermis, includes intact or open blister
- Stage 3 - Full thickness tissue not including bone, tendon or muscle
- Stage 4 - Full thickness tissue loss, including exposed bone, tendon or muscle
- Unstageable - Full thickness loss in which the base of the ulcer is covered by slough (yellow, lieberman, vega, green or brown) and/or eschar (lieberman, brown or black) in the wound bed.
- Unable to determine
Use of terms such as suspected, likely, concern for, or probable (associated with a specific diagnosis that is being evaluated, monitored, or treated as if it exists) are acceptable and can be coded in the inpatient setting, when documented at the
time of discharge.
Thank you,
JOI Hampton RN
CDI Specialist
available via tiger text
Please use your independent medical judgment in providing your response.
*Source: National Pressure Ulcer Advisory Panel (NPUAP)
--- NOTE | 2024-10-16 11:31 | CM ---
Patient seen at bedside
IA completed
Dx: sepsis, L ankle cellulitis
PMH: esophageal cancer on chemotherapy, breast cancer on hormonal therapy, paroxysmal atrial fibrillation, hypertension, TIA, diabetes, BPH
Patient lives with in a 2 story home, 5 steps to enter, flight to bedroom/bath
PLOF: Independent with cane
DME: cane, walker, shower chair
Denies [facility] in past for cva
Denies insecurities
PCP: Ayesha Esquivel Tenthoff
Pharmacy: [facility]
PLAN: TBD, await PT/OT rec, CM continue to follow for needs
[2024-10-16 12:23] LABS: Glucose - Point of Care 106 mg/dl (70-99)
[2024-10-16] MEDS: NSS IV (12:45)
--- NOTE | 2024-10-16 14:29 | CON.ID ---
Consultation
-
Date/Time Consultation Requested: October 16, 2024 0637
Date/Time Consultation Performed: October 16, 2024 1430
Requesting Provider: Dr. Fara Louis
Performing Provider: Dr. Kayla Stewart
Reason for Consultation: Sepsis
Chief Complaint / Past History
Chief Complaint
Weakness
History of Present Illness
History obtained from the patient as well as from his at bedside. He is a 73-year-old male with history of diabetes mellitus, stage IV esophageal/gastric cancer currently on treatment via port who presented to the hospital on October 15 due to
sudden onset of shaking chills. Per he was he doing well yesterday and went shopping. However in the car he suddenly felt very cold and started shivering. He was very weak walking to the house. He continued to shake violently. Patient
unable to take his temperature due to his shivering. He was then sent to the ER. Temperature 105.2. Lactic acid 4.1. Patient noted to have left lower extremity erythema. He was started on vancomycin and Zosyn. Today the blood cultures are
positive for group B streptococcus. The other day his noted a little bit of redness of his left leg for which she thought perhaps he bumped it. Otherwise patient denies headache, cough, nausea or vomiting, abdominal pain, or urinary symptoms.
His stool is soft.
Past History
Additional Past Medical History:
Diabetes mellitus
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
History of L breast cancer on hormonal therapy
Paroxysmal atrial fibrillation
Hypertension
BPH
TIA
Right knee torn quadricep repair
port placement
Allergy History:
No Known Allergies Allergy (Verified 10/03/23 17:56)
Medications Reviewed: Yes
Current Antibiotics:
Vancomycin
Zosyn
Social History
Tobacco: Former Smoker
Alcohol: Former
Drug: None
Personal:
Living: With Family
Family History
Family History: Not Pertinent
Review of Systems
Review of Systems
General: Chills and Change in Appetite
HEENT: Negative Stiff Neck, Sinus Problems, Headache or Pharyngitis
Cardiovascular: Negative Chest Pain or Dyspnea
Respiratory: Negative Dyspnea or Cough
Gasteroenterology: Negative Nausea or Vomiting
Genital / Urological: Negative Dysuria or Flank Pain
Endocrine: Weakness
Neurological: Dizziness
All systems: All other systems were reviewed and were negative
Vital Signs
Temp Pulse Resp BP Pulse Ox
98.3 F 57 18 130/49 97
10/16/24 11:00 10/16/24 11:00 10/16/24 11:00 10/16/24 11:00 10/16/24 11:00
Selected Entries
10/15/24
13:22 10/15/24
19:26
Temp 105.2 F H 101.7 F H
Physical Exam
Physical Exam
Constitutional: No Acute Distress
Head: Other (No frontal or max or sinus tenderness)
Eyes: No Conjunctival Hemorrhage and Sclera Anicteric
Cardiovascular: Regular Rate and S1/S2
Pulmonary: Clear
Gastrointestinal: Soft, Non Tender, Non Distended and Normal Bowel Sounds
Genito-Urinary: Clear Urine (Condom cath); Negative CVA Tenderness
Extremities: Edema (LLE >RLE) and Erythema (Mild erythema distal LLE, + warmth)
Neurological: AO x 3
Lines: Port (Right chest wall without erythema)
Lab / Diagnostic Study Results
10/16/24 04:22
10/16/24 04:22
Abs Immat Gran (auto) 0.1 10^3/uL (0-0.05) H 10/16/24 04:22
Absolute Neuts (auto) 7.8 10^3/uL (1.4-6.5) H 10/16/24 04:22
Absolute Lymphs (auto) 0.3 10^3/uL (1.2-3.4) L 10/16/24 04:22
Absolute Monos (auto) 0.4 10^3/uL (0.1-0.6) 10/16/24 04:22
Absolute Basos (auto) 0.0 10^3/uL (0-0.2) 10/16/24 04:22
Immature Gran % 0.6 % (0-0.5) H 10/16/24 04:22
Neutrophils % 90.7 % (42.2-75.2) H 10/16/24 04:22
Lymphocytes % 3.4 % (20.5-51.1) L 10/16/24 04:22
Monocytes % 4.9 % (1.7-9.3) 10/16/24 04:22
Eosinophils % 0.0 % (0-6) 10/16/24 04:22
Basophils % 0.4 % (0-2) 10/16/24 04:22
Lactic Acid 1.9 mmol/L (0.7-2.0) 10/15/24 23:21
Ur Squamous Epith Cells 11-15 /LPF (Few) 10/15/24 13:04
Microbiology Results
Micro:
10/15/24 14:03 Blood Culture - Preliminary
Blood/Venous Streptococcus agalactiae
Gram Stain - Preliminary
10/16/24 10:31 Blood Culture - Pending
Blood/Venous
10/15/24 13:04 Blood Culture - Preliminary
Blood/Venous Positive culture in progress
Gram Stain - Preliminary
10/15/24 13:04 Influenza Types A & B (MARLENE) - Final
Nasal Swab Negative for Influenza A & B, NAAT
Negative results must be combined with clinical observations
and patient history.
Nucleic Acid Amplification test (NAAT)performed on the
[employer] platform.
10/15/24 CXR: No acute pulmonary process identified. Osseous findings representing either ankylosing spondylitis or possibly diffuse idiopathic skeletal hyperostosis. Previously seen fracture at the T8 level not clearly identifiable on this exam.
Assessment / Plan
# Left lower extremity cellulitis
# Group B streptococcus bacteremia, from cellulitis source
# Fever
# Immunocompromise host: Esophageal/gastric carcinoma on chemotherapy via port
- Follow repeat blood cx's
- De-escalate Vanco/Zosyn to cefazolin 2g IV q8
- Trend temp
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
Diabetes mellitus
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
History of L breast cancer on hormonal therapy
Paroxysmal atrial fibrillation
Hypertension
BPH
TIA
Right knee torn quadricep repair
port placment
[2024-10-16] MEDS: ZOSYN IV (15:38)
[2024-10-16] MEDS: ANCEF 10 IV (16:09)
[2024-10-16 17:09] LABS: Glucose - Point of Care 152 mg/dl (70-99)
[2024-10-16 21:11] LABS: Glucose - Point of Care 203 mg/dl (70-99)
[2024-10-16] MEDS: NOVOLOG FLEXPEN-LOW RESISTANCE 2 UNITS SC (21:14)
[2024-10-16] MEDS: BYSTOLIC 10 MG PO (21:18)
[2024-10-16] MEDS: COZAAR 100 MG PO (21:19)
[2024-10-16] MEDS: LIPITOR 40 MG PO (21:20)
[2024-10-17] VITALS (7 sets, daily range): BP systolic 143–166; BP diastolic 61–72; PULSE 64; O2SAT 96; BMI 29.5
[2024-10-17] MEDS: ANCEF 10 IV ×3 (00:29→16:15)
[2024-10-17 05:53] LABS: INR 2.08; PT 23.5 Sec (11.4-14.6)
[2024-10-17 05:54] LABS: APTT 48.4 Sec (23.4-35.0); Fibrinogen 495 MG/DL (199-459)
[2024-10-17 05:56] LABS: D-Dimer 0.65 ug/mlFEU (0.00-0.50)
[2024-10-17 06:05] LABS: Blood Urea Nitrogen 19 mg/dl (9-20); Calcium 8.2 mg/dl (8.4-10.2); Carbon Dioxide 25 mmol/L (22-30); Chloride 113 mmol/L (98-107); Estimated Creatinine Clearance 67 ml/min; Glucose 123 mg/dl (70-99); Potassium 3.5 mmol/L (3.5-5.1); Sodium 142 mmol/L (135-145); eGFR > 60.00
[2024-10-17 07:47] LABS: Glucose - Point of Care 170 mg/dl (70-99)
[2024-10-17] MEDS: NOVOLOG FLEXPEN-LOW RESISTANCE 1 UNITS SC ×2 (08:00→17:30)
[2024-10-17] MEDS: FOLVITE 1 MG PO (08:00)
[2024-10-17] MEDS: NOLVADEX 20 MG PO (08:00)
[2024-10-17] MEDS: THERAGRAN 1 TABLET PO (08:00)
[2024-10-17] MEDS: ELIQUIS 5 MG PO ×2 (08:00→20:48)
[2024-10-17] MEDS: FLUSH (NSS) 2 FLUSH IV ×2 (08:06→16:16)
--- NOTE | 2024-10-17 09:21 | W.PN.HOSP.TC ---
Today's Communication/Plan
-
c/w IV Abx
PT/OT
Assessment / Plan
Assessment / Plan
Physical Exam
General: Not in distress.
HEENT: Moist Mucous Membranes, Anicteric and PERRLA
Respiratory: Clear to Auscultation and Non-Labored Respirations; Negative Wheezes, Rales or Rhonchi
Cardiac: Regular Rhythm and S1/S2;
GI: Soft, Nontender, Nondistended and Normal Bowel Sounds
Musculoskeletal: No joint swelling. �Negative Edema, Left Lower Extrem
Skin: Warm, Dry and no rash
Neuro: Awake and AO x 3, non-focal exam.
Psych: Calm
# Sepsis POA/ lactic acidosis
Streptococcus Agalactiae Bacteremia
-Urinalysis unremarkable
-Chest x-ray unremarkable apart from ankylosing spondylitis or diffuse idiopathic skeletal hyperostosis
-Lactic acid 4, came down
- repeat Blood culture is pending
- c/w mild IV fluids
-Single episode of vomiting and diarrhea but doubt GI illness, do stool testing if repeat
-s/p Vancomycin/Zosyn, changed to IV Ancef 2 gm.
- Appreciate ID help
# Anemia/ thrombocytosis due to chemotherapy
# hypokalemia
Replaced
# Essential hypertension
- Continue telmisartan, Nebivolol
#Paroxysmal atrial fibrillation
- Continue Eliquis
#Esophageal cancer
- Undergoing chemotherapy due on Saturday, consulted oncology, help appreciated.
- Follows Dr. Augsut
#Breast cancer
- Continue tamoxifen
#History of TIA
- Continue statin
#Type 2 diabetes
- Hold metformin
- Insulin sliding scale
#BPH
- Continue tamsulosin
#Lower extremity edema
- Hold Lasix while sick
Full code
DVT prophylaxis�Eliquis
Regular diet
Total time spent to see the patient, examine the patient, review data and lab result, discuss treatment plan with patient, , nursing staff around 55 minutes
Anticipated Discharge: > 48 hours
Subjective/Interval History
-
Date of Service: October 17, 2024
No chest pain
No sob
Objective Data
-
Labs:
Laboratory Results
10/17/24
05:33
PT 23.5 H
INR 2.08
APTT 48.4 H
Sodium 142
Potassium 3.5
Chloride 113 H
Carbon Dioxide 25
BUN 19
Creatinine 1.1
Glucose 123 H
Calcium 8.2 L
Vital Signs:
Vital Signs
Temp Pulse Resp BP Pulse Ox
97.9 F 66 18 146/62 98
10/17/24 07:00 10/17/24 07:00 10/17/24 07:00 10/17/24 07:00 10/17/24 07:00
I&O
10/16/24 10/17/24 10/18/24
06:59 06:59 06:59
Intake Total 960 / 960 660 / 660
Output Total 350 / 350 900 / 900
Balance 610 / 610 -240 / -240
[2024-10-17 11:52] LABS: Glucose - Point of Care 122 mg/dl (70-99)
[2024-10-17] MEDS: NOVOLOG FLEXPEN-LOW RESISTANCE SC (11:55)
--- NOTE | 2024-10-17 14:53 | W.PN.ID1 ---
Date of Service
Date of Service: October 17, 2024
Today's Communication
Continue cefazolin (d#3 abx)
Assessment / Plan
# Left lower extremity cellulitis
# Group B streptococcus bacteremia, from cellulitis source
# Fever; improved
# Immunocompromise host: Esophageal/gastric carcinoma on chemotherapy via port
- Follow repeat blood cx's
- Continue cefazolin 2g IV q8
- Trend temp
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
Diabetes mellitus
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
History of L breast cancer on hormonal therapy
Paroxysmal atrial fibrillation
Hypertension
BPH
TIA
Right knee torn quadricep repair
port placment
Chief Complaint
-: Cellulitis and Bacteremia
Subjective / Review of Systems
Patient seen and examined. Denies left leg pain.
Review of Systems: No Fever
Vital Signs / Physical Exam
Vital Signs
Vital Signs
Temp Pulse Resp BP Pulse Ox
98.1 F 58 18 159/70 98
10/17/24 11:00 10/17/24 11:00 10/17/24 11:00 10/17/24 11:00 10/17/24 11:00
Physical Exam
Constitutional: No Acute Distress, Comfortable and Non-toxic
Eyes: Sclera Anicteric
Cardiovascular: S1/S2; Negative S3/S4
Pulmonary: Non Labored
Extremities: Edema (3+ right lower extremity edema. 4+ left lower extremity edema.) and Erythema (Left lower extremity; not tender. Positive significant warmth)
Neurological: Awake and Alert
Psychological: Calm
Objective Data
Lab Data
Lab Results
10/16/24 04:22
10/17/24 05:33
PT 23.5 Sec (11.4-14.6) H 10/17/24 05:33
INR 2.08 10/17/24 05:33
APTT 48.4 Sec (23.4-35.0) H 10/17/24 05:33
Estimated Creat Clear 67 ml/min 10/17/24 05:33
Lactic Acid 1.9 mmol/L (0.7-2.0) 10/15/24 23:21
Total Bilirubin 1.7 mg/dl (0.2-1.3) H 10/16/24 04:22
AST 20 U/L (17-59) 10/16/24 04:22
ALT 14 U/L (0-50) 10/16/24 04:22
Alkaline Phosphatase 42 U/L (38-126) 10/16/24 04:22
Most recent labs reviewed.
Micro Results:
10/15/24 13:04 Blood Culture - Preliminary
Blood/Venous Streptococcus agalactiae
Gram Stain - Preliminary
10/15/24 14:03 Blood Culture - Preliminary
Blood/Venous Streptococcus agalactiae
Gram Stain - Preliminary
10/16/24 10:31 Blood Culture - Preliminary
Blood/Venous No Growth in 24 hours- Final report to follow
10/17/24 05:33 Blood Culture - Pending
Blood/Venous
10/15/24 13:04 Influenza Types A & B (MARLENE) - Final
Nasal Swab Negative for Influenza A & B, NAAT
Negative results must be combined with clinical observations
and patient history.
Nucleic Acid Amplification test (NAAT)performed on the
[employer] platform.
10/15/24 CXR: No acute pulmonary process identified. Osseous findings representing either ankylosing spondylitis or possibly diffuse idiopathic skeletal hyperostosis. Previously seen fracture at the T8 level not clearly identifiable on this exam.
[2024-10-17 16:55] LABS: Glucose - Point of Care 161 mg/dl (70-99)
[2024-10-17] MEDS: COZAAR 100 MG PO (20:48)
[2024-10-17] MEDS: LIPITOR 40 MG PO (20:48)
[2024-10-17] MEDS: BYSTOLIC 10 MG PO (20:48)
[2024-10-17 21:36] LABS: Glucose - Point of Care 181 mg/dl (70-99)
[2024-10-18] VITALS (7 sets, daily range): BP systolic 155–186; BP diastolic 66–91
[2024-10-18] MEDS: ANCEF 10 IV ×3 (01:08→16:10)
[2024-10-18 07:50] LABS: Glucose - Point of Care 132 mg/dl (70-99)
[2024-10-18] MEDS: FOLVITE 1 MG PO (08:38)
[2024-10-18] MEDS: ELIQUIS 5 MG PO ×2 (08:38→20:53)
[2024-10-18] MEDS: NOLVADEX 20 MG PO (08:38)
[2024-10-18] MEDS: THERAGRAN 1 TABLET PO (08:38)
[2024-10-18] MEDS: NOVOLOG FLEXPEN-LOW RESISTANCE SC ×3 (08:42→16:26)
--- NOTE | 2024-10-18 08:50 | W.PN.HOSP.TC ---
Today's Communication/Plan
-
.
Assessment / Plan
Assessment / Plan
Physical Exam
General: Not in distress.
HEENT: Moist Mucous Membranes, Anicteric and PERRLA
Respiratory: Clear to Auscultation and Non-Labored Respirations; Negative Wheezes, Rales or Rhonchi
Cardiac: Regular Rhythm and S1/S2;
GI: Soft, Nontender, Nondistended and Normal Bowel Sounds
Musculoskeletal: No joint swelling. B/L ankle edema. Mild erythema LLE but no tenderness.
Skin: Warm, Dry and no rash
Neuro: Awake and AO x 3, non-focal exam.
Psych: Calm
# Sepsis POA/ lactic acidosis due to LLE cellulitis.
Streptococcus Agalactiae Bacteremia
-Urinalysis unremarkable
-Chest x-ray unremarkable apart from ankylosing spondylitis or diffuse idiopathic skeletal hyperostosis
-Lactic acid 4, came down
- repeat Blood culture so far NGTD
- s/p IV fluids
-s/p Vancomycin/Zosyn, changed to IV Ancef 2 gm.
- Appreciate ID help
# Anemia/ thrombocytosis due to chemotherapy
# hypokalemia
Replaced
# Essential hypertension
- Continue telmisartan, Nebivolol
#Paroxysmal atrial fibrillation
- Continue Eliquis
#Esophageal cancer
- Undergoing chemotherapy due on Saturday, consulted oncology, help appreciated.
- Follows Dr. August
#Breast cancer
- Continue tamoxifen
#History of TIA
- Continue statin
#Type 2 diabetes
- Hold metformin
- Insulin sliding scale
#BPH
- Continue tamsulosin
#Lower extremity edema
- Hold Lasix while sick
Full code
DVT prophylaxis�Eliquis
Regular diet
Total time spent to see the patient, examine the patient, review data and lab result, discuss treatment plan with patient, , nursing staff around 55 minutes
Anticipated Discharge: 24 - 48 hours
Subjective/Interval History
-
Date of Service: October 18, 2024
No complaints
No sob
No fevers
Objective Data
-
Vital Signs:
Vital Signs
Temp Pulse Resp BP Pulse Ox
98.5 F 57 16 170/66 98
10/18/24 07:00 10/18/24 07:00 10/18/24 07:00 10/18/24 07:00 10/18/24 07:00
I&O
10/17/24 10/18/24 10/19/24
06:59 06:59 06:59
Intake Total 660 / 660 4386 / 4386
Output Total 900 / 900 700 / 700
Balance -240 / -240 3686 / 3686
[2024-10-18 12:12] LABS: Glucose - Point of Care 136 mg/dl (70-99)
--- NOTE | 2024-10-18 16:03 | W.PN.ID1 ---
Date of Service
Date of Service: October 18, 2024
Today's Communication
Continue antibiotics.
Assessment / Plan
# Left lower extremity cellulitis
# Group B streptococcus bacteremia, from cellulitis source
# Fever; improved
# Immunocompromise host: Esophageal/gastric carcinoma on chemotherapy via port
- Follow repeat blood cx's
- Continue cefazolin 2g IV q8
- Trend temp
- LE compression
# Conditions [employer] SAL[employer]
Diabetes mellitus
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
History of L breast cancer on hormonal therapy
Paroxysmal atrial fibrillation
Hypertension
BPH
TIA
Right knee torn quadricep repair
port placment
Chief Complaint
-: Cellulitis and Bacteremia
Subjective / Review of Systems
Review of Systems: No Fever and No Chills
Vital Signs / Physical Exam
Vital Signs
Vital Signs
Temp Pulse Resp BP Pulse Ox
98.7 F 57 18 186/75 96
10/18/24 15:00 10/18/24 15:00 10/18/24 15:00 10/18/24 15:00 10/18/24 15:00
Physical Exam
Constitutional: No Acute Distress, Comfortable and Non-toxic
Eyes: Sclera Anicteric
Cardiovascular: S1/S2; Negative S3/S4
Pulmonary: Non Labored
Extremities: Edema (4+ right lower extremity edema. 4+ left lower extremity edema.) and Erythema (Left lower extremity; not tender. Decreased significant warmth)
Neurological: Awake and Alert
Psychological: Calm
Objective Data
Lab Data
Lab Results
10/16/24 04:22
10/17/24 05:33
PT 23.5 Sec (11.4-14.6) H 10/17/24 05:33
INR 2.08 10/17/24 05:33
APTT 48.4 Sec (23.4-35.0) H 10/17/24 05:33
Estimated Creat Clear 67 ml/min 10/17/24 05:33
Lactic Acid 1.9 mmol/L (0.7-2.0) 10/15/24 23:21
Total Bilirubin 1.7 mg/dl (0.2-1.3) H 10/16/24 04:22
AST 20 U/L (17-59) 10/16/24 04:22
ALT 14 U/L (0-50) 10/16/24 04:22
Alkaline Phosphatase 42 U/L (38-126) 10/16/24 04:22
Most recent labs reviewed.
Micro Results:
10/16/24 10:31 Blood Culture - Preliminary
Blood/Venous No Growth in 48 hours- Final report to follow
10/17/24 05:33 Blood Culture - Preliminary
Blood/Venous No Growth in 24 hours- Final report to follow
10/15/24 13:04 Blood Culture - Preliminary
Blood/Venous Streptococcus agalactiae
Gram Stain - Preliminary
10/15/24 14:03 Blood Culture - Preliminary
Blood/Venous Streptococcus agalactiae
Gram Stain - Preliminary
10/15/24 13:04 Influenza Types A & B (MARLENE) - Final
Nasal Swab Negative for Influenza A & B, NAAT
Negative results must be combined with clinical observations
and patient history.
Nucleic Acid Amplification test (NAAT)performed on the
[employer] platform.
10/15/24 CXR: No acute pulmonary process identified. Osseous findings representing either ankylosing spondylitis or possibly diffuse idiopathic skeletal hyperostosis. Previously seen fracture at the T8 level not clearly identifiable on this exam.
[2024-10-18 16:26] LABS: Glucose - Point of Care 140 mg/dl (70-99)
[2024-10-18 21:16] LABS: Glucose - Point of Care 182 mg/dl (70-99)
[2024-10-18] MEDS: COZAAR 100 MG PO (21:27)
[2024-10-18] MEDS: BYSTOLIC PO (21:27)
[2024-10-18] MEDS: LIPITOR 40 MG PO (21:28)
--- NOTE | 2024-10-18 23:20 | PTCARENOTE ---
Oral care was not performed on patient because he stated that it was his preference to brush his teeth in the morning.
[2024-10-19] MEDS: ANCEF 10 IV ×2 (01:06→07:59)
[2024-10-19 03:00] VITALS: BP 162/72
[2024-10-19 04:35] LABS: % Basophils 0.6 % (0-2); % Eosinophils 5.4 % (0-6); % Immature Granulocytes 0.4 % (0-0.5); % Lymphocytes 15.9 % (20.5-51.1); % Monocytes 5.6 % (1.7-9.3); % Neutrophils 72.1 % (42.2-75.2); Absolute Eosinophils 0.3 10^3/uL (0-0.7); Absolute Lymphocytes 0.8 10^3/uL (1.2-3.4); Absolute Monocytes 0.3 10^3/uL (0.1-0.6); Absolute Neutrophils 3.5 10^3/uL (1.4-6.5); Hemoglobin 9.1 g/dL (13.0-18.0); Mean Corp Hgb Conc. 33.7 g/dL (33.0-37.0); Mean Corpuscular Hgb 30.6 pg (27.0-31.0); Mean Corpuscular Volume 90.9 fL (80.0-94.0); Mean Platelet Volume 10.9 fL (7.4-10.4); Nucleated Red Blood Cells % 0 % (-); Platelet Count 105 10^3/uL (130-400); Red Blood Cell Count 2.97 10^6/uL (4.70-6.10); Red Cell Dist. Width 16.6 % (11.5-14.5); White Blood Cell Count 4.8 10^3/uL (4.8-10.8)
[2024-10-19 04:45] LABS: ALT (SGPT) 12 U/L (0-50); AST (SGOT) 22 U/L (17-59); Albumin 2.9 g/dl (3.5-5.0); Alkaline Phosphatase 56 U/L (38-126); Blood Urea Nitrogen 9 mg/dl (9-20); Calcium 8.4 mg/dl (8.4-10.2); Carbon Dioxide 26 mmol/L (22-30); Chloride 112 mmol/L (98-107); Estimated Creatinine Clearance 93 ml/min; Glucose 112 mg/dl (70-99); Magnesium 1.8 mg/dl (1.6-2.3); Potassium 3.2 mmol/L (3.5-5.1); Sodium 142 mmol/L (135-145); Total Bilirubin 0.9 mg/dl (0.2-1.3); Total Protein 5.2 g/dl (6.3-8.2); eGFR > 60.00
[2024-10-19 07:55] VITALS: BP 118/82
[2024-10-19] MEDS: NOLVADEX 20 MG PO (08:00)
[2024-10-19] MEDS: THERAGRAN 1 TABLET PO (08:00)
[2024-10-19] MEDS: FOLVITE 1 MG PO (08:00)
[2024-10-19] MEDS: ELIQUIS 5 MG PO (08:00)
--- NOTE | 2024-10-19 08:06 | W.PN.ONC2 ---
Today's Communication / Plan
-
next cycle of chemotherapy will be rescheduled upon discharge
daily CBC
Impression
Impression
73-year-old male past medical history of left breast carcinoma and esophageal carcinoma stage IV currently on chemotherapy and hormone therapy with Dr. August at [place]. Presents for sepsis, suspected secondary to left lower extremity cellulitis
Plan
Plan
Gastric carcinoma is stage IV clinically C2-T3 CN2 M1 -currently he is on FOLF plus pembrolizumab every 2 weeks for gastric cancer. Next cycle of chemo will be rescheduled upon hospital recovery
Male left breast carcinoma continue tamoxifen
Atrial fibrillation on Eliquis
Thrombocytopenia, platelet improved 105,000 today -caution anticoagulation, antiplatelets and NSAIDs if platelet counts fall below 50,000 or if any evidence of bleeding
Sepsis/Left lower extremity cellulitis/Group B streptococcus bacteremia, from cellulitis source-management per primary service/ID
Subjective/Objective
Subjective
afebrile, no hypotension or hypoxia
denies bleeding
Vital Signs:
Vital Signs
Temp Pulse Resp BP Pulse Ox
98 F 55 14 118/82 98
10/19/24 07:55 10/19/24 07:55 10/19/24 07:55 10/19/24 07:55 10/19/24 07:55
Lab Results:
Laboratory Data
WBC 4.8 10^3/uL (4.8-10.8) 10/19/24 04:11
Hgb 9.1 g/dL (13.0-18.0) L 10/19/24 04:11
Plt Count 105 10^3/uL (130-400) L D 10/19/24 04:11
PT 23.5 Sec (11.4-14.6) H 10/17/24 05:33
INR 2.08 10/17/24 05:33
APTT 48.4 Sec (23.4-35.0) H 10/17/24 05:33
eGFR > 60.00 10/19/24 04:11
Physical Exam
General: Well Developed, Well Nourished, No Apparent Distress and Comfortable
Cardiology: Normal Sinus Rhythm, S1 and S2
Pulmonary: Clear
GI: Soft and Other (No pain to light or deep palpation)
Extremities: Edema
Skin: Warm, Dry and Rash (Left lower extremity erythema present. Hot to touch. Erythema has spread past markings present on leg.)
Psych: Calm and Intact Judgement/Insight
[2024-10-19 08:11] LABS: Glucose - Point of Care 99 mg/dl (70-99)
[2024-10-19] MEDS: NOVOLOG FLEXPEN-LOW RESISTANCE SC ×2 (08:16→10:44)
[2024-10-19] MEDS: KCL 40 MEQ PO (08:33)
--- NOTE | 2024-10-19 10:04 | CM ---
Addendum entered by Laina Guerrero 10/19/24 12:04:
IMM explained & signed. In chart
Original Note:
Patient and seen at bedside
PT rec Home Health
Options reviewed
Patient/ declining home [facility]. States will be going to his last appointment Saturday for outpatient PT that he had been doing prior to his hospitalization. Then he will be working with his personal financial planner 2xweek.
tt hospitalist
PLAN: Home, declines Home Health
to transport
[2024-10-19 10:39] LABS: Glucose - Point of Care 130 mg/dl (70-99)
--- NOTE | 2024-10-19 11:11 | W.PN.HOSP.TC ---
Today's Communication/Plan
-
Await final susceptibilities
ID recs for antibiotics
Continue with IV antibiotics while here
Trend CBC
Replete KCl
Assessment / Plan
Assessment / Plan
Physical Exam
General: Not in distress.
HEENT: Moist Mucous Membranes, Anicteric
Respiratory: Clear to Auscultation and Non-Labored Respirations; Negative Wheezes, Rales or Rhonchi, R chest wall port noted
Cardiac: Regular Rhythm and S1/S2;
GI: Soft, Nontender, Nondistended and Normal Bowel Sounds
Musculoskeletal: No joint swelling. B/L ankle edema. Mild erythema LLE but no tenderness.
Skin: Warm, Dry and no rash
Neuro: Awake and AO x 3, non-focal exam.
Psych: Calm
# Sepsis POA/ lactic acidosis due to LLE cellulitis.
Streptococcus Agalactiae Bacteremia
-Urinalysis unremarkable
-Chest x-ray unremarkable apart from ankylosing spondylitis or diffuse idiopathic skeletal hyperostosis
-Lactic acid 4, came down
- Surveillance blood culture remains negative so far. Awaiting for final susceptibility results
- s/p IV fluids
-s/p Vancomycin/Zosyn, changed to IV Ancef 2 gm.
- Appreciate ID help
# Anemia/thrombocytopenia due to chemotherapy
Hemoglobin 9.1. Transfuse for hemoglobin less than 7. Trend platelets.
# hypokalemia
Replete prn
# Essential hypertension
- Continue telmisartan, Nebivolol
#Paroxysmal atrial fibrillation
- Continue Eliquis. Hold for platelets less than 50,000 or with acute bleeding
#Esophageal cancer
- Undergoing chemotherapy due on Saturday, consulted oncology, help appreciated.
- Follows Dr. August
#Breast cancer
- Continue tamoxifen
#History of TIA
- Continue statin
#Type 2 diabetes
- Hold metformin
- Insulin sliding scale
#BPH
- Continue tamsulosin
#Lower extremity edema
- Hold Lasix while sick
Full code
DVT prophylaxis�Eliquis
Regular diet
d/w with spouse at bedside in details
Dispo-home. Refused VN.
Anticipated Discharge: Within 24 hours
Subjective/Interval History
-
Date of Service: October 19, 2024
no complaints
eager to go home
no fevers
Objective Data
-
Labs:
Laboratory Results
10/19/24
04:11
WBC 4.8
Hgb 9.1 L
Hct 27.0 L
Plt Count 105 L D
Sodium 142
Potassium 3.2 L
Chloride 112 H
Carbon Dioxide 26
BUN 9
Creatinine 0.8
Glucose 112 H
Calcium 8.4
Total Bilirubin 0.9
AST 22
ALT 12
Alkaline Phosphatase 56
Vital Signs:
Vital Signs
Temp Pulse Resp BP Pulse Ox
98 F 55 14 118/82 98
10/19/24 07:55 10/19/24 07:55 10/19/24 07:55 10/19/24 07:55 10/19/24 07:55
I&O
10/18/24 10/19/24 10/20/24
06:59 06:59 06:59
Intake Total 4386 / 4386 1880 / 1880
Output Total 700 / 700 1570 / 1570
Balance 3686 / 3686 310 / 310
--- NOTE | 2024-10-19 11:34 | W.PN.ID1 ---
Date of Service
Date of Service: October 19, 2024
Today's Communication
Transition cefazolin 2g IV q8 (d4) to cephalexin 1000mg po q8h through 10/29/24.
Assessment / Plan
# Left lower extremity cellulitis, improving
# Group B streptococcus bacteremia, from cellulitis source
# Fever resolved
# Immunocompromise host: Esophageal/gastric carcinoma on chemotherapy via port
- Repeat blood cx's neg to date
- Transition cefazolin 2g IV q8 (d4) to cephalexin 1000mg po q8h through 10/29/24.
- Continue LE compression
# Conditions [employer]ENT
Diabetes mellitus
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
History of L breast cancer on hormonal therapy
Paroxysmal atrial fibrillation
Hypertension
BPH
TIA
Right knee torn quadricep repair
port placment
Chief Complaint
-: Cellulitis and Bacteremia
Subjective / Review of Systems
Feels well. Wants to go home. at bedside.
Vital Signs / Physical Exam
Vital Signs
Vital Signs
Temp Pulse Resp BP Pulse Ox
98 F 55 14 118/82 98
10/19/24 07:55 10/19/24 07:55 10/19/24 07:55 10/19/24 07:55 10/19/24 07:55
Physical Exam
Constitutional: No Acute Distress and Comfortable
Pulmonary: Clear
Gastrointestinal: Soft, Non Tender and Non Distended
Extremities: Edema (LLE>RLE) and Erythema (Mild on LLE )
Neurological: AO x 3
Lines: Port (RCW no erythema)
Objective Data
Lab Data
Lab Results
10/19/24 04:11
10/19/24 04:11
PT 23.5 Sec (11.4-14.6) H 10/17/24 05:33
INR 2.08 10/17/24 05:33
APTT 48.4 Sec (23.4-35.0) H 10/17/24 05:33
Estimated Creat Clear 93 ml/min 10/19/24 04:11
Lactic Acid 1.9 mmol/L (0.7-2.0) 10/15/24 23:21
Total Bilirubin 0.9 mg/dl (0.2-1.3) 10/19/24 04:11
AST 22 U/L (17-59) 10/19/24 04:11
ALT 12 U/L (0-50) 10/19/24 04:11
Alkaline Phosphatase 56 U/L (38-126) 10/19/24 04:11
Most recent labs reviewed.
Micro Results:
10/16/24 10:31 Blood Culture - Preliminary
Blood/Venous No Growth in 72 hours- Final report to follow
10/17/24 05:33 Blood Culture - Preliminary
Blood/Venous No Growth in 48 hours- Final report to follow
10/15/24 13:04 Blood Culture - Preliminary
Blood/Venous Streptococcus agalactiae
Gram Stain - Preliminary
10/15/24 14:03 Blood Culture - Preliminary
Blood/Venous Streptococcus agalactiae
Gram Stain - Preliminary
10/15/24 13:04 Influenza Types A & B (MARLENE) - Final
Nasal Swab Negative for Influenza A & B, NAAT
Negative results must be combined with clinical observations
and patient history.
Nucleic Acid Amplification test (NAAT)performed on the
[employer] platform.
10/15/24 CXR: No acute pulmonary process identified. Osseous findings representing either ankylosing spondylitis or possibly diffuse idiopathic skeletal hyperostosis. Previously seen fracture at the T8 level not clearly identifiable on this exam.
Care Review
Plan reviewed with: Physician (Dr. Wyatt)
--- NOTE | 2024-10-19 11:48 | W.DCSUMMARY ---
Discharge Summary
Discharge Data
Date of Admission: 10/15/24
Date of Discharge: 10/19/24
-
Pending Results: No
Hospital Course
73 -year-old male past medical history of esophageal cancer, atrial fibrillation, breast cancer, diabetes mellitus, BPH here with sepsis secondary to left lower extremity cellulitis. Patient was on broad-spectrum antibiotics. Patient was eval by
infectious disease. Patient was started on vancomycin and Zosyn. Patient blood cultures were positive for gram-positive. Blood cultures identification with Streptococcus. Cellulitis continued to improve. Blood pressure remained stable. IV
antibiotics were de-escalated to Ancef. Patient remained afebrile. Patient also with hypokalemia and potassium was repleted. Patient was eval by physical and Occupational Therapy. Home health was recommended however patient and spouse refused.
Patient may transition to p.o. Keflex through 10/29/2024.
Discharge Plan
-
Patient Disposition: Home (Routine Discharge)
Discharge Diagnosis/Procedures: Sepsis secondary to left lower extremity cellulitis and streptococcus bacteremia
Condition: Fair
Diet: Regular
Activity: As tolerated
Driving Restrictions: As prior to admission
Referrals:
Tenthoff,Ayesha Esquivel MD [Family Provider, [facility]] - in less than 1 week
Prescriptions:
New
cephalexin 500 mg capsule
1,000 mg PO TID 11 Days Qty: 66 0RF
Continued
multivitamin Tablet
1 tab PO DAILY
telmisartan 80 mg tablet
80 mg PO HS
nebivolol 10 mg tablet
10 mg PO HS
atorvastatin 40 MG tablet
40 mg PO HS
metformin 500 MG tablet extended release 24 hr
500 mg PO DAILY
tamoxifen 20 mg Tablet
20 mg PO DAILY
furosemide 20 mg Tablet
20 mg PO DAILY
folic acid 1 MG tablet
1 mg PO DAILY Qty: 90 0RF
Eliquis 5 MG tablet
5 mg PO BID Qty: 180 0RF
Discharge Orders:
Discharge Patient (As Directed); Ordered 10/19/24
Ordered By: Remi Wyatt
Discharge Date and Time
Print Language: DIVEHI
[2024-10-19 12:23] VITALS: BP 175/75
[2024-10-19 13:15] VITALS: BP 145/70
== END 2024-10-19 13:37 | disposition home or self-care (01) | DRG 872 ==
LOC: 3 WEST ACU 15:20
PROVIDERS: Internal Medicine; Student in an Organized Health Care Education/Training Program; ADMITTING PHYSICIAN Hospitalist; ATTENDING PHYSICIAN Hospitalist; EMERGENCY PHYSICIAN Student in an Organized Health Care Education/Training Program; FAMILY PHYSICIAN Family Medicine; OTHER PHYSICIAN Internal Medicine Hematology & Oncology; OTHER PHYSICIAN Internal Medicine Infectious Disease
DX: A40.9 Streptococcal sepsis, unspecified (principal); L03.116 Cellulitis of left lower limb; D84.9 Immunodeficiency, unspecified; C15.9 Malignant neoplasm of esophagus, unspecified; C16.9 Malignant neoplasm of stomach, unspecified; C77.2 Secondary and unspecified malignant neoplasm of intra-abdominal lymph nodes; E87.20 Acidosis, unspecified; D64.81 Anemia due to antineoplastic chemotherapy; C50.922 Malignant neoplasm of unspecified site of left male breast; M45.9 Ankylosing spondylitis of unspecified sites in spine; N40.0 Benign prostatic hyperplasia without lower urinary tract symptoms; M48.10 Ankylosing hyperostosis [Forestier], site unspecified; E11.9 Type 2 diabetes mellitus without complications; I10 Essential (primary) hypertension; I48.0 Paroxysmal atrial fibrillation; R60.0 Localized edema; D75.838 Other thrombocytosis; E87.6 Hypokalemia; L89.151 Pressure ulcer of sacral region, stage 1; L89.611 Pressure ulcer of right heel, stage 1; L89.621 Pressure ulcer of left heel, stage 1; Z11.52 Encounter for screening for COVID-19; Z17.1 Estrogen receptor negative status [ER-]; Z17.0 Estrogen receptor positive status [ER+]; Z79.84 Long term (current) use of oral hypoglycemic drugs; Z79.69 Long term (current) use of other immunomodulators and immunosuppressants; Z79.899 Other long term (current) drug therapy; Z79.01 Long term (current) use of anticoagulants; Z86.73 Personal history of transient ischemic attack (TIA), and cerebral infarction without residual deficits; Z87.891 Personal history of nicotine dependence
CPT/HCPCS: 71046; 80048; 80053; 81003; 81015; 82962; 83036; 83605; 83735; 85025; 85379; 85384; 85610; 85730; 87040; 87077; 87147; 87154; 87205; 87502; 87811; 93005; 96360; 97116; 97163; 97167; 97530; 97535; 99285

== ENCOUNTER 2024-12-27 21:27 | Emergency (ER) | payer MEDICARE, OTHER, SELFPAY ==
[2024-12-27 21:31] VITALS: BP 180/84
[2024-12-27] MEDS: ZOFRAN 4 MG IV (23:44)
[2024-12-27] MEDS: DILAUDID 1 MG IV (23:44)
[2024-12-28] VITALS (22 sets, daily range): BP systolic 156–186; BP diastolic 65–97
--- NOTE | 2024-12-28 03:15 | ED.GENMED ---
History of Present Illness
General
Chief Complaint: Fall
Source: patient and family
Time Seen by Provider: 12/27/24 23:37
Nursing documentation reviewed up to this point in time: agreed with
History of Present Illness
History of Present Illness:
Note:
CHIEF COMPLAINT(S)
Left hip pain following a fall.
HISTORY OF PRESENT ILLNESS
The patient is a 74-year-old male with a history of left hip replacement in 2008, who presented with left hip pain after a fall. The patient reported that he attempted to rise from a chair, during which his left foot slipped, and he experienced a
popping sensation accompanied by significant pain. The patient expressed significant discomfort, indicating he was reluctant to move the left leg.
PAST MEDICAL AND SURGICAL HISTORY
The patient underwent left hip replacement surgery in 2008.
ADDITIONAL HISTORY OBTAINED FROM SOURCES OTHER THAN THE PATIENT
The patient did not directly provide details of his condition continuously; there were interactions from medical staff around him as he appeared in much distress and in significant pain due to a likely dislocated hip.
ALLERGIES
The patient has no known allergies.
MEDICATIONS
The patient will be administered propofol for sedation to facilitate hip reduction.
PHYSICAL EXAM
General: The patient is alert but in acute distress due to pain.
Musculoskeletal: Left hip dislocation is suspected given the patients history and presentation. The patient avoids moving the left leg due to significant pain.
PROBLEM LIST
Acute: Suspected dislocation of the left hip.
PLAN
The plan is to sedate the patient with propofol and attempt closed reduction of the left hip dislocation. A consent form will be completed prior to the procedure. The patient has been informed about the procedure and potential need for respiratory
support due to sedation. If the reduction is successful, a knee immobilizer will be applied, and the patient will be discharged with instructions to follow up with [facility]. If unsuccessful, further consultation with [facility] will be sought.
DIFFERENTIAL DIAGNOSIS
The Differential Diagnosis includes, in no particular order and is not limited to:
1. Hip dislocation
2. Prosthetic joint complication
3. Femoral fracture
4. Acetabular fracture
5. Hip sprain/strain
6. Soft tissue injury
7. Sciatica or nerve impingement
8. Osteoarthritis exacerbation
9. Bursitis
10. Hemarthrosis or joint effusion
Disposition:
SUMMARY OF ENCOUNTER
The patient, a 74-year-old male with a history of left hip replacement, presented with left hip pain after a fall. Suspicion of left hip dislocation was confirmed upon evaluation. The hip dislocation was successfully reduced by myself. The patient
tolerated the procedure well. A knee immobilizer was applied post-reduction.
DISPOSITION
Discharge.
ASSESSMENT
The patient presented with a suspected left hip dislocation following a fall.
EMERGENCY TREATMENTS ADMINISTERED
Propofol was administered for sedation to facilitate the closed reduction of the left hip dislocation.
PLAN
The patient will follow up with [facility]. He has been instructed to ambulate with crutches and keep the knee immobilizer in place for added support.
PATIENT EDUCATION AND COUNSELING
The patient was educated on the importance of using crutches to avoid placing weight on the affected leg and the importance of wearing the knee immobilizer as advised.
FOLLOW-UP INSTRUCTIONS
The patient is advised to schedule a follow-up appointment with [facility] for further evaluation and continued management.
MEDICATION RECONCILIATION
Propofol was administered for sedation during the reduction procedure.
MEDICAL DECISION MAKING
- Number and Complexity of Problems Addressed: Chronic conditions affecting care include a history of left hip replacement. The differential diagnosis considered included hip dislocation, prosthetic joint complication, femoral fracture, acetabular
fracture, hip sprain/strain, soft tissue injury, sciatica or nerve impingement, osteoarthritis exacerbation, bursitis, and hemarthrosis or joint effusion.
- Data:
Category 2: Clinical information was obtained from an independent historian due to the patients distress.
Category 3: Discussion of management with [facility] will be necessary for follow-up.
- Risk: Consideration of Admission/Observation: Escalation of care including admission/observation was considered given the complexity and risk of the patients presenting complaint, exam findings, and underlying comorbidities. However, ultimately
the patient was deemed safe for outpatient management with close follow-up. Reasoning: The work-up was reassuring and did not reveal any acute life/organ-threatening processes. The patients symptoms were well-controlled upon reevaluation,
reexamination was reassuring, vitals were stable, the patient agreed with discharge, and he is reliable for follow-up.
DIAGNOSIS
Hip dislocation, unspecified, correct laterality for prosthetic joint [ICD-10: T84.02XA].
Past History
Past History
ED Past Medical History: Arrthythmia, HTN and NIDDM
ED Past Surgical History: Orthopedic
Social History
Tobacco: Former smoker
Alcohol: Occasional
Personal:
Living: with family
Phy Exam
Physical Exam
Physical Exam:
.
Course
Orders/Labs/Results
Orders:
Orders
12/27/24 21:45
Hip, Left 2-3 Views [CR Hip - LT w/wo Pel 2-3 Vw*] Urgent
Comment:
Reason For Exam: injury
Include a pelvis x-ray?: Yes
12/27/24 23:38
HYDROmorphone [Dilaudid] 1 mg IV NOW STA
Ondansetron Injectable [Zofran] 4 mg IV NOW STA
12/27/24 23:59
Propofol [Diprivan] 20 ml .ROUTE .STK-MED
12/28/24 00:14
Hip, Left 1 View [CR Hip - LT without Pel 1 Vw] Urgent
Comment:
Reason For Exam: post reduction
12/28/24 01:13
Crutches-Treatment ONCE
12/28/24 03:33
Walker [Treatment- Walker] ONCE
Vital Signs
Initial and Last Documented VS:
Initial Vital Signs
Temp Pulse Resp BP Pulse Ox
97.8 F 66 18 180/84 96
12/27/24 21:31 12/27/24 21:31 12/27/24 21:31 12/27/24 21:31 12/27/24 21:31
Last Documented Vital Signs
Temp Pulse Resp BP Pulse Ox
97.8 F 61 11 172/72 93
12/27/24 21:31 12/28/24 01:35 12/28/24 01:35 12/28/24 01:45 12/28/24 03:19
Procedures
Moderate Sedation
ASA Risk Score: Class II
Chart and allergies reviewed: Yes
Consent for anesthesia obtained: Yes
Time out completed (validating right patient & procedure): Yes
Moderate Sedation Start Time(when first medication is given): 00:09
History of difficult intubation: No
Airway free of obstruction: Yes
Patient has a gag reflex: Yes
Patient is able to open mouth: Yes
Patient has no dentures: Yes
Patient has no loose teeth: Yes
Medication administered by Provider during Moderate Sedation: IV Propofol (mg)
Total dose administered: 110
Time drug administered: 00:09
Moderate Sedation Procedure End Time: 00:35
Joint/Fracture Reduction
Left Hip:
Indication for procedure:: Posterior hip dislocation
Procedure completed by: Myself
Consent form signed: Yes
Joint reduced: with anesthesia sedation
Anesthesia/sedation: Moderate sedation
Injury was: closed
Further treatement: needs re-check only
Post reduction exam: stable
Capillary Refill: normal
Normal distal neurovascular exam?: Yes
*Radiology
Radiology exam reviewed: preliminary read by ED provider and radiology read reviewed
*Pulse Oximetry
SaO2: 93
Oxygen Mode of Delivery: Room air
Patient hypoxic: no
*Critical Care Note
Total Time (30-74mins, 75-104mins- exclusive of procedures): Not Applicable
ED Attending Note
-
Portions of this chart may have been created with voice recognition software.� Occasional wrong word or��sound alike� substitutions may have occurred due to the inherent limitations of voice recognition software.
Discharge Plan
Departure
Patient Disposition: Home (Routine Discharge)
Date of Disposition: 12/28/24
Time of Disposition: 03:17
Patient with high blood pressure during this ER visit?: Yes
Discharge Problem:
Dislocation, hip closed
Instructions: Hip Dislocation (DC), MODERATE SEDATION ADULT, BLOOD PRESSURE
Prescriptions:
No Action
multivitamin Tablet
1 tab PO DAILY
telmisartan 80 mg tablet
80 mg PO HS
nebivolol 10 mg tablet
10 mg PO HS
atorvastatin 40 MG tablet
40 mg PO HS
metformin 500 MG tablet extended release 24 hr
500 mg PO DAILY
tamoxifen 20 mg Tablet
20 mg PO DAILY
furosemide 20 mg Tablet
20 mg PO DAILY
cephalexin 500 mg capsule
1,000 mg PO TID 11 Days Qty: 66 0RF
folic acid 1 MG tablet
1 mg PO DAILY Qty: 90 0RF
Eliquis 5 MG tablet
5 mg PO BID Qty: 180 0RF
Referrals:
Tenthoff,Ayesha Esquivel MD [Family Provider, [facility]]
Activity Restrictions/Additional Instructions:
Thank You for choosing [facility].
It was a pleasure meeting you and taking part in your care. We hope for your continued healing and wellness.
Please read discharge instructions in their entirety. However, they are for general education and may not describe your exact diagnosis at discharge. Information on your ER visit and medical conditions were discussed with you along with appropriate
follow up information...
If indicated, please take your medications as instructed and indicated on discharge paperwork.
Please schedule a follow up appointment as directed. Call to schedule an appointment
Please return to the emergency department with ANY change in, persisting, or worsening of symptoms. If any of your symptoms do not improve, or persist, or become more severe within 6-12 hours, please return to the emergency department for further
care.
Please return to the emergency department if you develop a headache, neck pain/stiffness, fever greater than 100.4F, chest pain, shortness of breath, persistent nausea, vomiting, slurred speech, difficulty walking, numbness/tingling, weakness, signs
of infection or any other symptoms that are worrisome to you.
If you have any questions or concerns please do not hesitate to call the Hospital at or E-mail me directly at [email or web address]
Interventions
Interventions:
*Risk Screen - Suicide Last Done: 12/27/24 21:39
*General Assessment Last Done: 12/27/24 21:39
*Neglect/Abuse Screening Last Done: 12/27/24 21:39
*ED- Fall Risk Assessment Last Done: 12/27/24 23:01
*ED COVID-19 Vaccine History Last Done: 12/27/24 23:01
*Nursing Disposition Last Done: 12/28/24 03:34
ED-Musculoskeletal Assessment Last Done: 12/27/24 21:46
ED- Neurological Assessment Last Done: 12/27/24 21:46
ED-Skin Assessment Last Done: 12/27/24 21:46
Discharge Date and Time
Discharge Date/Time: 12/28/24 03:36
Print Language: JAPANESE
== END 2024-12-28 03:36 | disposition home or self-care (01) ==
LOC: EMR 21:27
PROVIDERS: EMERGENCY PHYSICIAN Student in an Organized Health Care Education/Training Program; FAMILY PHYSICIAN Family Medicine
DX: T84.021A Dislocation of internal left hip prosthesis, initial encounter (principal); Y79.2 Prosthetic and other implants, materials and accessory orthopedic devices associated with adverse incidents; E11.9 Type 2 diabetes mellitus without complications; I10 Essential (primary) hypertension; I49.9 Cardiac arrhythmia, unspecified; Z96.642 Presence of left artificial hip joint; Z79.01 Long term (current) use of anticoagulants; Z79.84 Long term (current) use of oral hypoglycemic drugs; Z87.891 Personal history of nicotine dependence; W01.0XXA Fall on same level from slipping, tripping and stumbling without subsequent striking against object, initial encounter
CPT/HCPCS: 99285; 27265; 96374; 96375; 73501; 73502

== ENCOUNTER → 2025-01-05 09:34 | Outpatient (REF) | payer MEDICARE, OTHER, SELFPAY | LOC: RAD 09:34 | PROVIDERS: ATTENDING PHYSICIAN Internal Medicine Hematology & Oncology; FAMILY PHYSICIAN Family Medicine | DX: C16.0 Malignant neoplasm of cardia (principal); M25.50 Pain in unspecified joint; Z51.12 Encounter for antineoplastic immunotherapy; E03.2 Hypothyroidism due to medicaments and other exogenous substances; K59.03 Drug induced constipation; C50.022 Malignant neoplasm of nipple and areola, left male breast | CPT/HCPCS: 71260; 74177; Q9967 ==

== ENCOUNTER → 2025-01-11 15:39 | Outpatient (REF) | payer MEDICARE, OTHER, SELFPAY | LOC: RAD 15:39 | PROVIDERS: ATTENDING PHYSICIAN Internal Medicine Hematology & Oncology; FAMILY PHYSICIAN Family Medicine | DX: M79.605 Pain in left leg (principal); C16.0 Malignant neoplasm of cardia; C50.022 Malignant neoplasm of nipple and areola, left male breast; M25.50 Pain in unspecified joint; Z51.12 Encounter for antineoplastic immunotherapy; E03.2 Hypothyroidism due to medicaments and other exogenous substances; K59.03 Drug induced constipation | CPT/HCPCS: 93971 ==

== ENCOUNTER 2025-02-19 15:35 | Emergency (ER) | payer MEDICARE, OTHER, SELFPAY ==
[2025-02-19] VITALS (9 sets, daily range): BP systolic 107–143; BP diastolic 49–82; PULSE 67–75; BMI 26.3
--- NOTE | 2025-02-19 15:43 | ED.GENMED ---
History of Present Illness
<David Choi PA-C - Last Filed: 02/21/25 14:53>
General
Chief Complaint: Fainting/Passed Out
Source: patient and ambulance crew
Time Seen by Provider: 02/19/25 15:41
History of Present Illness
History of Present Illness:
74-year-old male with past medical history of previous CVA secondary to A-fib, hypertension, xnr-rbyekzm-ucokknlrj diabetes as well as currently undergoing treatment currently for esophageal and breast cancer (known to [facility] [place]) presenting to the emergency department with EMS after he was out to lunch with his daughter who reports that patient had a witnessed syncopal event while sitting, no reported trauma. EMS states that upon their arrival patient was profoundly
hypotensive and despite receiving approximately 150 mL of IV fluids patient remained hypotensive so they gave a push dose of 10 mcg of epinephrine with good response of patient's blood pressure. At time of my exam patient is without any symptoms,
denies any headache, chest pain, shortness of breath, abdominal pain, nausea vomiting or diarrhea, urinary symptoms or any other concerns. Patient currently receiving chemotherapy, last was 2 weeks ago and reports no complications from this
Past History
<David Choi PA-C - Last Filed: 02/21/25 14:53>
Past History
ED Past Medical History: Arrthythmia, Cancer, CVA, HTN and NIDDM
ED Past Surgical History: Orthopedic
Social History
Tobacco: Former smoker
Alcohol: Occasional
Drug: None
Personal:
Living: with family
Review of Systems
<David Choi PA-C - Last Filed: 02/21/25 14:53>
Review of Systems
All Other Systems: ROS reviewed and negative except as documented in HPI and ROS
Phy Exam
<David Choi PA-C - Last Filed: 02/21/25 14:53>
Physical Exam
Physical Exam:
GENERAL: Alert , in no apparent distress
HEAD: Normocephalic atraumatic
EYE: clear conjunctiva
NECK: Supple
ENT: o/p clr, mmm.
CARDIAC: Regular rate and rhythm .
LUNGS: Clear breath sounds bilaterally, no acute respiratory distress, no wheezes/rales/rhonchi
ABDOMEN: Soft, without focal tenderness, no r/g, no cvat
NEUROLOGICAL: Alert and oriented, no focal neuro deficits
SKIN: Warm and dry, skin intact. pale
MUSCULOSKELETAL: No edema, well perfused.
PSYCH: Normal and appropriate interaction.
Scores
<David Choi PA-C - Last Filed: 02/21/25 14:53>
Heart Failure Risk
Heart Failure Risk Score: Not Applicable
Heart Score for Chest Pain Patients
STEMI patient?: Not applicable
Withdrawal Assessment of Alcohol
Withdrawal Assessment Completed?: Not applicable
Course
<David Choi PA-C - Last Filed: 02/21/25 14:53>
Orders/Labs/Results
Orders:
Orders
02/19/25 15:41
Electrocardiogram (*1) Urgent
Reason for Study: Syncope
EKG- Treatment ONCE
Orthostatic VS- Treatment ONCE
0.9% Sodium Chloride 500 ml [Nss] 500 ml IV BOLUS
02/19/25 15:45
Complete Blood Count/With Diff Urgent
Comprehensive Metabolic Panel Urgent
Magnesium Urgent
Abnormal Lab Results
02/19/25
15:45
WBC 4.6 L 10^3/uL
(4.8-10.8)
RBC 3.11 L 10^6/uL
(4.70-6.10)
Hgb 9.8 L g/dL
(13.0-18.0)
Hct 28.6 L %
(39.0-52.0)
MCH 31.5 H pg
(27.0-31.0)
RDW 17.3 H %
(11.5-14.5)
Plt Count 125 L 10^3/uL
(130-400)
MPV 10.9 H fL
(7.4-10.4)
Glucose 137 H mg/dl
(70-99)
Total Bilirubin 1.5 H mg/dl
(0.2-1.3)
Total Protein 5.7 L g/dl
(6.3-8.2)
Albumin 3.3 L g/dl
(3.5-5.0)
02/19/25 15:45
02/19/25 15:45
Vital Signs
Initial and Last Documented VS:
Initial Vital Signs
Temp Pulse Resp BP Pulse Ox
98.2 F 78 18 143/82 96
02/19/25 15:39 02/19/25 15:39 02/19/25 15:39 02/19/25 15:39 02/19/25 15:39
Last Documented Vital Signs
Temp Pulse Resp BP Pulse Ox
98.2 F 61 14 136/62 96
02/19/25 15:39 02/19/25 17:20 02/19/25 17:20 02/19/25 17:20 02/19/25 17:20
<Antonio Guillaume MD - Last Filed: 02/19/25 18:22>
Orders/Labs/Results
Orders:
Orders
02/19/25 15:41
Electrocardiogram (*1) Urgent
Reason for Study: Syncope
EKG- Treatment ONCE
Orthostatic VS- Treatment ONCE
0.9% Sodium Chloride 500 ml [Nss] 500 ml IV BOLUS
02/19/25 15:45
Complete Blood Count/With Diff Urgent
Comprehensive Metabolic Panel Urgent
Magnesium Urgent
Abnormal Lab Results
02/19/25
15:45
WBC 4.6 L 10^3/uL
(4.8-10.8)
RBC 3.11 L 10^6/uL
(4.70-6.10)
Hgb 9.8 L g/dL
(13.0-18.0)
Hct 28.6 L %
(39.0-52.0)
MCH 31.5 H pg
(27.0-31.0)
RDW 17.3 H %
(11.5-14.5)
Plt Count 125 L 10^3/uL
(130-400)
MPV 10.9 H fL
(7.4-10.4)
Glucose 137 H mg/dl
(70-99)
Total Bilirubin 1.5 H mg/dl
(0.2-1.3)
Total Protein 5.7 L g/dl
(6.3-8.2)
Albumin 3.3 L g/dl
(3.5-5.0)
02/19/25 15:45
02/19/25 15:45
Vital Signs
Initial and Last Documented VS:
Initial Vital Signs
Temp Pulse Resp BP Pulse Ox
98.2 F 78 18 143/82 96
02/19/25 15:39 02/19/25 15:39 02/19/25 15:39 02/19/25 15:39 02/19/25 15:39
Last Documented Vital Signs
Temp Pulse Resp BP Pulse Ox
98.2 F 61 14 136/62 96
02/19/25 15:39 02/19/25 17:20 02/19/25 17:20 02/19/25 17:20 02/19/25 17:20
<David Choi PA-C - Last Filed: 02/21/25 14:53>
MDM/Problems Addressed
Differential Diagnosis Includes:
Vagal Syncope
Orthostasis
Anemia
Electrolyte Imbalance
Dehydration
Medication side-effects
Cardiac Arrhythmia
Seizure
MDM/Problems Addressed:
74-year-old male presenting to the emergency department with EMS for evaluation after a syncopal episode while sitting at a restaurant with his daughter. Patient does not recall much of the event. Currently without symptoms. Received small amount
of fluids and may push dose of 10 mcg of epinephrine on the way to the hospital. Currently mentating well, answering questions appropriately and without any focal findings. EKG shows a normal sinus rhythm without any ectopy, no ischemic changes.
Fingerstick glucose by EMS was greater than 100. Will check labs, orthostatics and keep on telemetry. Disposition pending.
Chronic conditions affecting care: Cancer
<David Choi PA-C - Last Filed: 02/21/25 14:53>
*Pulse Oximetry
SaO2: 98
Oxygen Mode of Delivery: Room air
Patient hypoxic: no
*EKG
Heart Rate: 62
Rate: normal
Rhythm: sinus
Ischemia: no ischemia
*Oyster Culler Interpretation
Rate: normal
Heart Rate: 68
Rhythm: sinus
*Critical Care Note
Total Time (30-74mins, 75-104mins- exclusive of procedures): Not Applicable
Data Reviewed
Review of Other/Old Records Reveals: Labs and Records
<David Choi PA-C - Last Filed: 02/21/25 14:53>
Patient Management
Escalation/DeEscalation of care consider admission/obs:
Patient continues to feel well. On orthostatics his blood pressure did drop however patient remained asymptomatic. I did offer admission for continued observation for other possible etiologies such as seizure however patient and family feel
comfortable being discharged home and prefer to be discharged home. Advised to stay well-hydrated. Aware of return precautions to the emergency department.
ED Attending Note
<David Choi PA-C - Last Filed: 02/21/25 14:53>
-
Portions of this chart may have been created with voice recognition software.� Occasional wrong word or��sound alike� substitutions may have occurred due to the inherent limitations of voice recognition software.
<Antonio Guillaume MD - Last Filed: 02/19/25 18:22>
ED Attending Note
Patient seen and examined by attending physician: Yes
ED Attending Note:
Patient with history of stomach and esophageal cancer, currently receiving treatment, with significant resolution of his cancer, presents to ED after witnessed syncopal episode while having lunch with his daughter this afternoon. Per daughter, they
had just finished lunch and was sitting at the table, waiting for the bill. That is when she noticed that her father kept closing his eye. When she asked him why, he he told her that he was tired. After couple episodes, patient no longer was
responding to her daughter. That is when she initially called 911. When paramedics arrived, patient was awake, but was unable to follow commands. Vital signs at the scene was remarkable for hypotension and bradycardia. Patient was treated with
IV fluids on the way to the ED. At the time evaluation in the ED, symptoms had resolved. Patient no longer had any complaints. Patient denies preceding chest palpitations shortness of breath. Denies nausea or vomiting. Denies dizziness. Denies
headache. Denies recent illness. Denies recent change in medications or diet. Denies weight loss. Of note, this morning, in anticipation of lunch, patient had small breakfast. In addition, with lunch, patient also had a glass of martini. In
addition, earlier this year, patient had 1 additional episode of passing out, when he was coming out of hot shower. At that time he was told that his symptoms were secondary to vagal response.
Physical Exam
General: no apparent distress, not acutely ill. afebrile
Head: nc/at. eomi
Neck: supple. normal range of motion. no jvd.
Heart: s1/s2 regular rate and rhythm
Lungs: no acute respiratory distress. clear bilaterally
Abdomen: normal bowel sounds. not tender.
Neuro: alert and oriented x 3. no focal neurological deficits
Skin: no rash
Psychiatric: well kept. interactive and cooperative
Extremities: no edema. no calf tenderness.
Patient with an unremarkable workup in ED, including blood work and orthostatic vital signs. Patient remains asymptomatic. Discussed patient's presentation, including potential etiology, including vagal response versus arrhythmia versus TIA. At
this time, patient would like to be discharged home and follow-up with PCP as an outpatient, which I believe is reasonable. Patient advised to return to ED with recurrent or concerning symptoms at home. Patient will be observed carefully at home
by his family.
Discharge Plan
Departure
Patient Disposition: Home (Routine Discharge)
Date of Disposition: 02/19/25
Time of Disposition: 17:23
Patient with high blood pressure during this ER visit?: No
Discharge Problem:
Syncope
Instructions: Syncope (Fainting) (DC)
Prescriptions:
No Action
multivitamin Tablet
1 tab PO DAILY
telmisartan 80 mg tablet
80 mg PO HS
nebivolol 10 mg tablet
10 mg PO HS
atorvastatin 40 MG tablet
40 mg PO HS
metformin 500 MG tablet extended release 24 hr
500 mg PO DAILY
tamoxifen 20 mg Tablet
20 mg PO DAILY
furosemide 20 mg Tablet
20 mg PO DAILY
cephalexin 500 mg capsule
1,000 mg PO TID 11 Days Qty: 66 0RF
folic acid 1 MG tablet
1 mg PO DAILY Qty: 90 0RF
Eliquis 5 MG tablet
5 mg PO BID Qty: 180 0RF
Referrals:
Tenthoff,Ayesha Esquivel MD [Family Provider, Family Practice]
Interventions
Interventions:
*Risk Screen - Suicide Last Done: 02/19/25 15:51
*General Assessment Last Done: 02/19/25 15:51
*Neglect/Abuse Screening Last Done: 02/19/25 15:51
*ED- Fall Risk Assessment Last Done: 02/19/25 15:43
*ED COVID-19 Vaccine History Last Done: 02/19/25 15:43
*ED Influenza Vaccine History Last Done: 02/19/25 15:43
*Nursing Disposition Last Done: 02/19/25 17:38
ED- Cardiac Assessment Last Done: 02/19/25 15:52
ED- Neurological Assessment Last Done: 02/19/25 15:52
Discharge Date and Time
Discharge Date/Time: 02/19/25 17:38
Print Language: UKRAINIAN
[2025-02-19] MEDS: NSS 500 IV (15:47)
[2025-02-19 15:55] LABS: Hematocrit 28.6 % (39.0-52.0); Hemoglobin 9.8 g/dL (13.0-18.0); Mean Corp Hgb Conc. 34.3 g/dL (33.0-37.0); Mean Corpuscular Volume 92.0 fL (80.0-94.0); Nucleated Red Blood Cells % 0 % (-); Platelet Count 125 10^3/uL (130-400); Red Cell Dist. Width 17.3 % (11.5-14.5)
[2025-02-19 16:12] LABS: ALT (SGPT) 16 U/L (0-50); AST (SGOT) 20 U/L (17-59); Albumin 3.3 g/dl (3.5-5.0); Alkaline Phosphatase 48 U/L (38-126); Blood Urea Nitrogen 12 mg/dl (9-20); Calcium 8.6 mg/dl (8.4-10.2); Carbon Dioxide 25 mmol/L (22-30); Chloride 106 mmol/L (98-107); Estimated Creatinine Clearance 70 ml/min; Glucose 137 mg/dl (70-99); Magnesium 1.8 mg/dl (1.6-2.3); Potassium 4.0 mmol/L (3.5-5.1); Sodium 140 mmol/L (135-145); Total Protein 5.7 g/dl (6.3-8.2); eGFR > 60.00
== END 2025-02-19 17:38 | disposition home or self-care (01) ==
LOC: EMR 15:35
PROVIDERS: Physician Assistant Medical; EMERGENCY PHYSICIAN Emergency Medicine; FAMILY PHYSICIAN Family Medicine
DX: R55 Syncope and collapse (principal); E11.9 Type 2 diabetes mellitus without complications; I48.91 Unspecified atrial fibrillation; I10 Essential (primary) hypertension; C50.929 Malignant neoplasm of unspecified site of unspecified male breast; C15.9 Malignant neoplasm of esophagus, unspecified; Z79.84 Long term (current) use of oral hypoglycemic drugs; Z79.01 Long term (current) use of anticoagulants; Z86.73 Personal history of transient ischemic attack (TIA), and cerebral infarction without residual deficits; Z87.891 Personal history of nicotine dependence
CPT/HCPCS: 99284; 96360; 80053; 83735; 85025; 93005

== ENCOUNTER → 2025-04-05 12:43 | Outpatient (REF) | payer MEDICARE, OTHER, SELFPAY ==
[2025-04-05 13:20] LABS: Hematocrit 35.7 % (39.0-52.0); Hemoglobin 10.9 g/dL (13.0-18.0); Mean Corp Hgb Conc. 30.5 g/dL (33.0-37.0); Mean Corpuscular Volume 98.9 fL (80.0-94.0); Nucleated Red Blood Cells % 0 % (-); Platelet Count 176 10^3/uL (130-400); Red Cell Dist. Width 16.2 % (11.5-14.5)
[2025-04-05 13:52] LABS: ALT (SGPT) 18 U/L (0-50); AST (SGOT) 18 U/L (17-59); Albumin 3.5 g/dl (3.5-5.0); Alkaline Phosphatase 76 U/L (38-126); Blood Urea Nitrogen 9 mg/dl (9-20); Calcium 8.8 mg/dl (8.4-10.2); Carbon Dioxide 31 mmol/L (22-30); Chloride 106 mmol/L (98-107); Glucose 118 mg/dl (70-99); Potassium 4.4 mmol/L (3.5-5.1); Sodium 140 mmol/L (135-145); Total Protein 6.2 g/dl (6.3-8.2); eGFR > 60.00
[2025-04-05 14:10] LABS: Free T3 3.08 pg/ml (2.77-5.27)
[2025-04-05 14:24] LABS: TSH 0.15 uIU/ml (0.47-4.68)
== END ==
LOC: REG 12:43
PROVIDERS: ATTENDING PHYSICIAN Internal Medicine Hematology & Oncology; FAMILY PHYSICIAN Family Medicine
DX: C16.0 Malignant neoplasm of cardia (principal); C50.022 Malignant neoplasm of nipple and areola, left male breast; M25.50 Pain in unspecified joint; Z51.12 Encounter for antineoplastic immunotherapy; E03.2 Hypothyroidism due to medicaments and other exogenous substances; K59.03 Drug induced constipation; E78.5 Hyperlipidemia, unspecified
CPT/HCPCS: 36415; 80053; 84439; 84443; 84481; 85025